=== PATIENT | male | born 1965 | race Caucasian/White ===

== ENCOUNTER → 2017-10-22 09:13 | Outpatient (CLI) | payer OTHER, SELFPAY ==
[2017-10-22 12:23] LABS: Absolute Lymphocyte Count 1.99 X10^3/ul (0.83-4.51); Basophil# 0.03 X10^3/uL; Basophil% 0.4 % (0-1); Eosinophil# 0.19 X10^3/uL; Eosinophils% 2.8 % (0-5); Hematocrit 45.4 % (40-54); Hemoglobin 15.8 g/dl (13.0-16.5); Lymphocyte # 1.99 X10^3/ul (4.0); Lymphocyte % 29.1 % (19-41); Mean Corp Hgb Conc 34.8 g/gl (32-36); Mean Corpuscular Hgb 31.6 pg (27.0-32.0); Mean Corpuscular Volume 90.8 fL (80-94); Mean Platelet Vol. 9.3 fl (6.2-12.0); Monocyte# 0.61 X10^3/uL; Monocyte% 8.9 % (0-10); Neutrophil % 58.7 % (47-70); Platelet Count 233 K/mm3 (150-450); RBC Distribution Width CV 13.1 % (11.6-14.6); White Blood Count 6.8 K/mm3 (4.4-11.0)
[2017-10-22 12:33] LABS: AST(SGOT) 17 U/L (15-37); Alanine Aminotransfer ALT/SGPT 35 U/L (16-61); Albumin, Serum 3.7 g/dL (3.2-5.0); Alkaline Phosphatase 89 U/L (45-117); Anion Gap 8 (5-15); BUN 21 mg/dL (7-18); BUN/Creat Ratio 23.2 RATIO (10-20); Calcium,Total 8.5 mg/dL (8.5-10.1); Chloride 103 mmol/L (98-107); Cholesterol 227 mg/dL (200); EST Glomerular Filtration Rate 93 mL/min (>60); Est Glom Filt Rate - Afr Amer 112 mL/min (>60); Globulin 3.6 g/dL (2.2-4.2); Glucose 102 mg/dL (74-106); High Density Lipoprotein 34 mg/dL; PSA,Total - Annual Screen 0.56 ng/mL (0.00-4.00); Potassium 4.1 mmol/L (3.5-5.1); Protein, Total 7.3 g/dL (6.4-8.2); Sodium Level 136 mmol/L (136-145); Triglycerides 255 mg/dL; Very Low Density Lipoprotein 51 mg/dL (5-40)
[2017-10-22 12:37] LABS: POSITIVE COUNT NO; POSITIVE DIFFERENTIAL NO; POSITIVE MORPHOLOGY NO
== END ==
PROVIDERS: Family Provider Internal Medicine; PCP Internal Medicine; Visit Provider Family Medicine
DX: Z00.01 Encounter for general adult medical examination with abnormal findings (principal); R03.0 Elevated blood-pressure reading, without diagnosis of hypertension; Z12.5 Encounter for screening for malignant neoplasm of prostate
CPT/HCPCS: 36415; 80053; 80061; 84153; 85025; G0103

== ENCOUNTER → 2017-10-22 10:23 | Outpatient (CLI) | payer OTHER, SELFPAY ==
--- NOTE | 2017-10-22 10:27 | US_ITS ---
STUDY: ABDOMINAL ULTRASOUND - RIGHT UPPER QUADRANT REASON FOR VISIT: Male, 52 years old. Right upper quadrant mass. TECHNIQUE: Ultrasound evaluation of the right upper quadrant was performed with real-time and static andrade-scale imaging. TECHNICAL QUALITY: Adequate. COMPARISON: Comparison is made with prior study dated October 28, 2015. FINDINGS: Liver: The liver measures 16.8 cm. There is increased echogenicity consistent with fatty infiltration. The bile ducts are within normal limits. There is hepatic color flow. The direction of portal flow is hepatopetal. There is no demonstrated mass lesion. Gallbladder: Normal distended gallbladder. The gallbladder wall measures 2.4 mm. There is a negative sonographic Madsen's sign. There is no pericholecystic fluid. There are no gallstones. Common Bile Duct (C.B.D.): The common bile duct measures 4.5 mm. Pancreas: There is nonvisualization of the pancreas due to overlying bowel gas. Right Kidney: Normal size of the right kidney. The right kidney measures 11.8 cm x 6.0 cm x 7.4 cm. Normal renal cortex. The right cortex measures 2.5 cm. There is no demonstrated renal mass or cyst. There is no right hydronephrosis. US/Abdomen Limited IMPRESSION: Fatty attrition of the liver. Electronically Signed: Torito Ross MD at 11:43 EST Tel [phone], Service support ,
== END ==
PROVIDERS: PCP Family Medicine; Visit Provider Family Medicine
DX: R19.01 Right upper quadrant abdominal swelling, mass and lump (principal)
CPT/HCPCS: 76705

== ENCOUNTER 2018-04-15 09:33 | Outpatient (RCR) | payer OTHER, SELFPAY | END 2018-04-26 23:59 | LOC: NS 09:33 | PROVIDERS: PCP Family Medicine; Visit Provider Family Medicine | DX: E66.01 Morbid (severe) obesity due to excess calories (principal); Z68.38 Body mass index [BMI] 38.0-38.9, adult; Z71.3 Dietary counseling and surveillance | CPT/HCPCS: 97802 ==

== ENCOUNTER 2018-05-13 08:50 | Outpatient (RCR) | payer OTHER, SELFPAY | END 2018-05-26 23:59 | LOC: NS 08:50 | PROVIDERS: PCP Family Medicine; Visit Provider Family Medicine | DX: E66.01 Morbid (severe) obesity due to excess calories (principal); Z68.38 Body mass index [BMI] 38.0-38.9, adult; Z71.3 Dietary counseling and surveillance | CPT/HCPCS: 97803 ==

== ENCOUNTER 2018-06-17 08:30 | Outpatient (RCR) | payer OTHER, SELFPAY | END 2018-06-26 23:59 | LOC: NS 08:30 | PROVIDERS: PCP Family Medicine; Visit Provider Family Medicine | DX: E66.01 Morbid (severe) obesity due to excess calories (principal); Z68.38 Body mass index [BMI] 38.0-38.9, adult; Z71.3 Dietary counseling and surveillance | CPT/HCPCS: 97803 ==

== ENCOUNTER 2018-07-08 09:01 | Outpatient (RCR) | payer OTHER, SELFPAY | END 2018-07-26 23:59 | LOC: NS 09:01 | PROVIDERS: PCP Family Medicine; Visit Provider Family Medicine | DX: E66.01 Morbid (severe) obesity due to excess calories (principal); Z68.38 Body mass index [BMI] 38.0-38.9, adult; Z71.3 Dietary counseling and surveillance | CPT/HCPCS: 97803 ==

== ENCOUNTER 2018-08-22 08:45 | Outpatient (RCR) | payer OTHER, SELFPAY | END 2018-08-26 23:59 | LOC: NS 08:45 | PROVIDERS: PCP Family Medicine; Visit Provider Family Medicine | DX: E66.01 Morbid (severe) obesity due to excess calories (principal); Z68.38 Body mass index [BMI] 38.0-38.9, adult; Z71.3 Dietary counseling and surveillance | CPT/HCPCS: 97803 ==

== ENCOUNTER 2018-09-24 08:30 | Outpatient (RCR) | payer OTHER, SELFPAY | END 2018-09-26 23:59 | LOC: NS 08:30 | PROVIDERS: PCP Family Medicine; Visit Provider Family Medicine | DX: E66.01 Morbid (severe) obesity due to excess calories (principal); Z68.38 Body mass index [BMI] 38.0-38.9, adult; Z71.3 Dietary counseling and surveillance | CPT/HCPCS: 97803 ==

== ENCOUNTER 2018-11-04 09:21 | Outpatient (RCR) | payer OTHER, SELFPAY | END 2018-11-04 23:59 | disposition home or self-care (01) | LOC: NS 09:21 | PROVIDERS: PCP Family Medicine; Visit Provider Family Medicine | DX: E66.01 Morbid (severe) obesity due to excess calories (principal); Z68.38 Body mass index [BMI] 38.0-38.9, adult; Z71.3 Dietary counseling and surveillance | CPT/HCPCS: 97803 ==

== ENCOUNTER → 2019-05-25 11:50 | Outpatient (CLI) | payer OTHER, SELFPAY ==
--- NOTE | 2019-05-25 12:06 | RAD_ITS ---
STUDY: X-RAY - LEFT FOOT CLINICAL: Male, 54 years old. Pain. Bunion TECHNIQUE: 3 view(s) of the foot. COMPARISON: None. FINDINGS: Normal talus, calcaneus, and tarsal bones. Normal visualized subtalar, talonavicular, calcaneocuboid, tarsal and tarsometatarsal articulations. Normal metatarsi. There is degenerative arthrosis of the metatarsophalangeal joint of the hallux with a hallux valgus deformity. Normal tibial and fibular sesamoid bones. Normal interphalangeal joint of the great toe. Normal phalanges of the great toe. Normal second through fifth metatarsophalangeal joints. Normal interphalangeal joints and phalanges of the lesser toes. The soft tissue structures are unremarkable. There is no demonstrated fracture. RAD/Foot min 3 Views IMPRESSION: Arthritic change with hallux valgus. Electronically Signed: Nestor Sams MD at 17:56 EDT , Service support ,
== END ==
PROVIDERS: Family Provider Family Medicine; PCP Family Medicine; Referring Provider Family Medicine; Visit Provider Family Medicine
DX: M79.672 Pain in left foot (principal); M21.612 Bunion of left foot
CPT/HCPCS: 73630

== ENCOUNTER → 2019-06-17 17:52 | Outpatient (CLI) | payer OTHER, SELFPAY ==
--- NOTE | 2019-06-17 18:15 | MRI_ITS ---
STUDY: MRI LEFT FOREFOOT WITHOUT CONTRAST REASON FOR EXAM: Male, 54 years old. Pain. Plantar plate tear TECHNIQUE: Standardized fat and water weighted pulse sequences were obtained in all 3 orthogonal planes. COMPARISON: X-ray May 25, 2019. FINDINGS: There is degenerative arthrosis of the metatarsophalangeal joint of the hallux with a hallux valgus deformity. Arthrosis of the sesamoids-first metatarsal articulations. Normal interphalangeal joint of the hallux. Normal proximal and distal phalanges of the great toe. Normal medial and lateral heads of the flexor hallucis brevis tendons. Normal flexor and extensor hallucis longus tendons. There is dorsal subluxation at the second MTP joint with plantar plate tear, series 8 image . There are hammertoe deformities of the second and third toes. There is marrow edema of the base and shaft of the second proximal phalanx . Normal first through fourth intermetatarsal spaces. Normal flexor and extensor tendons of the second through fifth toes. Normal visualized metatarsi. Normal intrinsic muscles of the forefoot. There is no demonstrated soft tissue abnormality. MRI/Lower Ext/No Jt/w/o IMPRESSION: Hallux valgus. Hammertoe deformities of the second and third toes. Stress injury of the second proximal phalanx. Plantar plate tear at the second MTP joint. Electronically Signed: Nestor Sams MD at 19:48 EDT , Service support ,
== END ==
PROVIDERS: Family Provider Family Medicine; PCP Family Medicine; Referring Provider Podiatrist Foot & Ankle Surgery; Visit Provider Podiatrist Foot & Ankle Surgery
DX: M20.12 Hallux valgus (acquired), left foot (principal); M25.872 Other specified joint disorders, left ankle and foot
CPT/HCPCS: 73718

== ENCOUNTER → 2019-07-04 09:26 | Outpatient (CLI) | payer OTHER, SELFPAY ==
[2019-07-04 12:41] LABS: Vitamin D,25 Hydroxy 28.1 ng/mL (29.95-100.01)
== END ==
PROVIDERS: Family Provider Family Medicine; PCP Family Medicine; Referring Provider Podiatrist Foot & Ankle Surgery; Visit Provider Podiatrist Foot & Ankle Surgery
DX: M25.872 Other specified joint disorders, left ankle and foot (principal); M20.12 Hallux valgus (acquired), left foot
CPT/HCPCS: 36415; 82306

== ENCOUNTER → 2019-07-29 08:33 | Outpatient (CLI) | payer OTHER, SELFPAY ==
[2019-07-29 14:56] LABS: Vitamin D,25 Hydroxy 63.1 ng/mL (29.95-100.01)
== END ==
PROVIDERS: Family Provider Family Medicine; PCP Family Medicine; Referring Provider Podiatrist Foot & Ankle Surgery; Visit Provider Podiatrist Foot & Ankle Surgery
DX: M20.12 Hallux valgus (acquired), left foot (principal); M25.872 Other specified joint disorders, left ankle and foot
CPT/HCPCS: 36415; 82306

== ENCOUNTER → 2019-07-31 08:43 | Outpatient (CLI) | payer OTHER, SELFPAY ==
[2019-07-31 10:23] LABS: Absolute Lymphocyte Count 1.87 X10^3/uL (0.83-4.51); Absolute Neutrophil Count 3.5 X10^3/uL (2.0-7.7); Basophil# 0.04 X10^3/uL; Basophil% 0.6 % (0-1); Eosinophils% 4.8 % (0-5); Hematocrit 44.8 % (40-54); Hemoglobin 15.2 g/dL (13.0-16.5); Lymphocyte # 1.87 X10^3/ul (4.0); Lymphocyte % 29.6 % (19-41); Mean Corp Hgb Conc 33.9 g/dL (32-36); Mean Corpuscular Hgb 31.1 pg (27.0-32.0); Mean Corpuscular Volume 91.6 fL (80-94); Monocyte# 0.54 X10^3/uL; Monocyte% 8.6 % (0-10); NRBC Flagged by Analyzer 0 % (0-5); Neutrophil # 3.54 X10^3/uL (2.7-7.7); Neutrophil % 56.1 % (47-70); Platelet Count 258 K/mm3 (150-450); RBC Distribution Width CV 12.8 % (11.6-14.6); RBC Distribution Width SD 42.8 fl (35.1-43.9); Red Blood Count 4.89 M/mm3 (4.6-6.2); White Blood Count 6.3 K/mm3 (4.4-11.0)
[2019-07-31 11:03] LABS: ALB/GLOB Ratio 1.1 RATIO (0.9-2.4); AST(SGOT) 18 U/L (15-37); Alanine Aminotransfer ALT/SGPT 38 U/L (16-61); Albumin, Serum 3.8 g/dL (3.2-5.0); Alkaline Phosphatase 85 U/L (45-117); Anion Gap 7 (5-15); BUN 23 mg/dL (7-18); BUN/Creat Ratio 22.8 RATIO (10-20); Calcium,Total 8.9 mg/dL (8.5-10.1); Chloride 109 mmol/L (98-107); Cholesterol 215 mg/dL (200); Creatinine, Serum 1.01 mg/dL (0.70-1.30); EST Glomerular Filtration Rate 81 mL/min (>60); Est Glom Filt Rate - Afr Amer 98 mL/min (>60); Globulin 3.5 g/dL (2.2-4.2); Glucose 105 mg/dL (74-106); High Density Lipoprotein 39 mg/dL; Potassium 3.9 mmol/L (3.5-5.1); Protein, Total 7.3 g/dL (6.4-8.2); Sodium Level 140 mmol/L (136-145); Triglycerides 145 mg/dL; Very Low Density Lipoprotein 29 mg/dL (5-40)
== END ==
PROVIDERS: Family Provider Family Medicine; PCP Family Medicine; Referring Provider Family Medicine; Visit Provider Family Medicine
DX: Z00.01 Encounter for general adult medical examination with abnormal findings (principal); R03.0 Elevated blood-pressure reading, without diagnosis of hypertension; Z12.5 Encounter for screening for malignant neoplasm of prostate
CPT/HCPCS: 36415; 80053; 80061; 84153; 85025; G0103

== ENCOUNTER → 2019-09-12 11:06 | Outpatient (CLI) | payer OTHER, SELFPAY ==
--- NOTE | 2019-09-12 11:10 | RAD_ITS ---
STUDY: X-RAY - LEFT FOOT CLINICAL: Male, 54 years old. post op left foot, 3 weeks TECHNIQUE: 3 view(s) of the foot. COMPARISON: Prior study of 05/25/2019 FINDINGS: Normal talus, calcaneus, and tarsal bones. Normal visualized subtalar, talonavicular, calcaneocuboid, tarsal and tarsometatarsal articulations. Status post bunionectomy changes of the first metatarsal head are noted. There is a dorsal fusion plate with multiple screws traversing the first metatarsophalangeal articulation. There are mild degenerative changes of the first metatarsophalangeal joint. Normal second through fifth metatarsophalangeal joints. A pain is demonstrated in the second digital ray projecting into the head of the second metatarsal. The soft tissue structures are unremarkable. RAD/Foot min 3 Views IMPRESSION: Fusion with plate and multiple screws of the first metatarsophalangeal joint. Status post first metatarsal head bunionectomy. Mild degenerative changes of the first metatarsophalangeal joint. A pin is demonstrated in the second digital ray extending from the distal phalanx to the second metatarsal head. A screw is demonstrated in the second metatarsal head. Osseous structures appear in good alignment. Electronically Signed: Dwayne Cox MD at 21:07 EST , Service support ,
== END ==
PROVIDERS: PCP Family Medicine; Referring Provider Podiatrist Foot & Ankle Surgery; Visit Provider Podiatrist Foot & Ankle Surgery
DX: Z98.890 Other specified postprocedural states (principal); M19.072 Primary osteoarthritis, left ankle and foot
CPT/HCPCS: 73630

== ENCOUNTER → 2019-09-24 14:15 | Outpatient (CLI) | payer OTHER, SELFPAY ==
--- NOTE | 2019-09-24 14:28 | RAD_ITS ---
STUDY: X-RAY - LEFT FOOT CLINICAL: Male, 54 years old. 4 WEEK POST OP F/U TECHNIQUE: 3 view(s) of the foot. COMPARISON: Prior study of 09/12/2019 FINDINGS: Normal talus, calcaneus, and tarsal bones. Normal visualized subtalar, talonavicular, calcaneocuboid, tarsal and tarsometatarsal articulations. There are status post bunionectomy changes of the first metatarsal head. There is fusion with plate and multiple screws of the first metatarsophalangeal joint. Normal tibial and fibular sesamoid bones. Normal interphalangeal joint of the great toe. A screw is demonstrated within the second metatarsal head. There is a pin in the second digital ray with tip projecting in the second metatarsal head. Normal interphalangeal joints and phalanges of the lesser toes. The soft tissue structures are unremarkable. RAD/Foot min 3 Views IMPRESSION: Fusion with plate and multiple screws of the first metatarsophalangeal joint. Status post first metatarsal head bunionectomy. A pin is demonstrated in the second digital ray. The osseous structures of the first and second toes appear in good alignment. Findings appear similar to the previous study. Electronically Signed: Dwayne Cox MD at 19:16 EST , Service support ,
== END ==
PROVIDERS: PCP Family Medicine; Referring Provider Podiatrist Foot & Ankle Surgery; Visit Provider Podiatrist Foot & Ankle Surgery
DX: M20.12 Hallux valgus (acquired), left foot (principal); Z98.890 Other specified postprocedural states
CPT/HCPCS: 73630

== ENCOUNTER → 2019-10-08 10:29 | Outpatient (CLI) | payer OTHER, SELFPAY ==
--- NOTE | 2019-10-08 10:32 | RAD_ITS ---
STUDY: X-RAY - LEFT FOOT CLINICAL: Male, 54 years old. 6 WEEK POST OP F/U TECHNIQUE: 3 weight bearing view(s) of the foot. COMPARISON: 09/1505/16/2020. 09/12/2019. FINDINGS: Interval removal of second metatarsal head second distal phalangeal pin. Stable arthrodesis plate and screws first metatarsophalangeal joint and small screw over the second metatarsal head. Soft tissue swelling along the forefoot. Possible previous bunionectomy. Normal talus, calcaneus, and tarsal bones. Normal visualized subtalar, talonavicular, calcaneocuboid, tarsal and tarsometatarsal articulations. Normal metatarsi. Loss of metatarsophalangeal joint space of the great toe. Degenerative changes along the first metatarsal head and tibial and fibular sesamoid bones. Normal interphalangeal joint of the great toe. Normal phalanges of the great toe. Normal second through fifth metatarsophalangeal joints. Normal interphalangeal joints and phalanges of the lesser toes. RAD/Foot min 3 Views IMPRESSION: Stable post surgical changes. No solid bone fusion seen at this time. There is soft tissue swelling. Electronically Signed: Rosaura Shaffer MD at 23:26 EST , Service support ,
== END ==
PROVIDERS: PCP Family Medicine; Referring Provider Podiatrist Foot & Ankle Surgery; Visit Provider Podiatrist Foot & Ankle Surgery
DX: M20.12 Hallux valgus (acquired), left foot (principal); Z98.890 Other specified postprocedural states
CPT/HCPCS: 73630

== ENCOUNTER → 2019-10-22 09:09 | Outpatient (CLI) | payer OTHER, SELFPAY ==
--- NOTE | 2019-10-22 09:16 | RAD_ITS ---
STUDY: X-RAY - LEFT FOOT CLINICAL: Male, 54 years old. post operative state, acquired hallux valgus of left foot TECHNIQUE: 3 view(s) of the foot. COMPARISON: Prior foot radiograph of October 08, 2019 FINDINGS: Normal talus, calcaneus, and tarsal bones. Normal visualized subtalar, talonavicular, calcaneocuboid, tarsal and tarsometatarsal articulations. 1 screw remains embedded in the head of the second metatarsal. There continues to be some general demineralization of the phalanges of the second toe and the head of the second metatarsal with no change in normal alignment. Healing osteotomy of the distal end of the middle phalanx of the second toe and base of the middle phalanx at the proximal interphalangeal joint consistent with hammertoe correction. All of the prior hardware has been completely removed. Stable hallux valgus correction and arthrodesis of the first metatarsophalangeal joint unchanged in alignment from prior exam. No disruption of the hardware. Normal third through fifth metatarsophalangeal joints. Normal interphalangeal joints of the remaining phalanges. Post operative swelling subsiding. RAD/Foot min 3 Views IMPRESSION: Healing hammertoe correction of the second toe in normal alignment. Some continuing disuse osteoporosis. Healing hallux valgus correction and arthrodesis of the first metatarsal phalangeal joint with no change in alignment or hardware placement. Electronically Signed: Jessica Pathak MD at 23:00 EST , Service support ,
== END ==
PROVIDERS: PCP Family Medicine; Referring Provider Podiatrist Foot & Ankle Surgery; Visit Provider Podiatrist Foot & Ankle Surgery
DX: M20.12 Hallux valgus (acquired), left foot (principal); Z98.890 Other specified postprocedural states
CPT/HCPCS: 73630

== ENCOUNTER → 2019-11-07 11:43 | Outpatient (CLI) | payer OTHER, SELFPAY ==
--- NOTE | 2019-11-07 11:48 | RAD_ITS ---
STUDY: X-RAY - LEFT FOOT CLINICAL: Male, 54 years old. Postoperative. TECHNIQUE: 3 view(s) of the foot. COMPARISON: 10/22/2019. FINDINGS: Diffuse osteopenia otherwise normal talus, calcaneus, and tarsal bones. Normal visualized subtalar, talonavicular, calcaneocuboid, tarsal and tarsometatarsal articulations. Fixation screw through the second metatarsal heads. Otherwise normal metatarsi. Extensive postoperative bunion repair with fixation plate and multiple screws at the first metatarsophalangeal joint with partial fusion. There is degenerative arthrosis of the interphalangeal joint of the great toe. Normal phalanges of the great toe. Normal second through fifth metatarsophalangeal joints. Questionable erosive change/arthritis at the proximal interphalangeal joint of the second toe. Interphalangeal joints and phalanges of the lesser toes. The soft tissue structures are unremarkable. There is no demonstrated fracture. RAD/Foot min 3 Views IMPRESSION: Postoperative changes of the first metatarsophalangeal joint for presumed bunion deformity with fixation screw through the second metatarsal head. Questionable inflammatory arthritis involving the proximal interphalangeal joint versus sequela of previous surgery. Clinical correlation recommended. Electronically Signed: Edith Cali MD at 1:01 EDT , Service support ,
== END ==
PROVIDERS: PCP Family Medicine; Referring Provider Podiatrist Foot & Ankle Surgery; Visit Provider Podiatrist Foot & Ankle Surgery
DX: Z98.890 Other specified postprocedural states (principal)
CPT/HCPCS: 73630

== ENCOUNTER → 2020-08-17 07:44 | Outpatient (CLI) | payer OTHER, SELFPAY ==
[2020-03-21 12:03] VITALS: BMI 37.5
[2020-08-17 09:47] LABS: Absolute Lymphocyte Count 1.95 X10^3/uL (0.83-4.51); Absolute Neutrophil Count 3.2 X10^3/uL (2.0-7.7); Basophil# 0.05 X10^3/uL; Basophil% 0.8 % (0-1); Eosinophil# 0.28 X10^3/uL; Eosinophils% 4.6 % (0-5); Hematocrit 44.6 % (40-54); Hemoglobin 15.2 g/dL (13.0-16.5); Lymphocyte # 1.95 X10^3/ul (4.0); Lymphocyte % 32.3 % (19-41); Mean Corp Hgb Conc 34.1 g/dL (32-36); Mean Corpuscular Hgb 31.1 pg (27.0-32.0); Mean Corpuscular Volume 91.4 fL (80-94); Mean Platelet Vol. 8.8 fl (6.2-12.0); Monocyte# 0.56 X10^3/uL; Monocyte% 9.3 % (0-10); NRBC Flagged by Analyzer 0 % (0-5); Neutrophil # 3.18 X10^3/uL (2.7-7.7); Neutrophil % 52.8 % (47-70); Platelet Count 251 K/mm3 (150-450); RBC Distribution Width CV 12.7 % (11.6-14.6); RBC Distribution Width SD 42.1 fl (35.1-43.9); Red Blood Count 4.88 M/mm3 (4.6-6.2)
[2020-08-17 10:02] LABS: Vitamin D,25 Hydroxy 31.8 ng/mL
[2020-08-17 10:12] LABS: ALB/GLOB Ratio 1.1 RATIO (0.9-2.4); AST(SGOT) 18 U/L (15-37); Alanine Aminotransfer ALT/SGPT 31 U/L (16-61); Albumin, Serum 3.7 g/dL (3.2-5.0); Alkaline Phosphatase 93 U/L (45-117); Anion Gap 7 (5-15); BUN 23 mg/dL (7-18); BUN/Creat Ratio 24.8 RATIO (10-20); Calcium,Total 8.7 mg/dL (8.5-10.1); Chloride 107 mmol/L (98-107); Cholesterol 205 mg/dL (200); Creatinine, Serum 0.93 mg/dL (0.70-1.30); EST Glomerular Filtration Rate 89 mL/min (>60); Est Glom Filt Rate - Afr Amer 108 mL/min (>60); Globulin 3.3 g/dL (2.2-4.2); Glucose 106 mg/dL (74-106); High Density Lipoprotein 38 mg/dL; PSA,Total - Annual Screen 0.68 ng/mL (0.00-4.00); Potassium 3.7 mmol/L (3.5-5.1); Sodium Level 139 mmol/L (136-145); Triglycerides 160 mg/dL; Very Low Density Lipoprotein 32 mg/dL (5-40)
== END ==
PROVIDERS: PCP Family Medicine; Referring Provider Family Medicine; Visit Provider Family Medicine
DX: Z00.00 Encounter for general adult medical examination without abnormal findings (principal); E55.9 Vitamin D deficiency, unspecified; Z12.5 Encounter for screening for malignant neoplasm of prostate
CPT/HCPCS: 36415; 80053; 80061; 82306; 84153; 85025; G0103

== ENCOUNTER 2020-10-22 08:02 | Day surgery (SDC) | payer OTHER, SELFPAY ==
[2020-03-21 12:03] VITALS: BMI 37.5
--- NOTE | 2020-10-22 | COLBX_PTH ---
PATIENT: GAVI BLACKWELL LOC: [facility] – [place] U#:[id number] AGE/SX: 55/M ROOM: RE10/22/[address]: Dr. Bronson Durand MD : 1965 BED: DIS: 10/22/2020 SPEC #: [id number] RECD: 10/22/20 12:37 STATUS: MACARENA REChristos #: [id number] MARYELLEN: 10/22/20 00:[address]: Bronson Durand DEPT: SURGICAL PATHOLOGY RECD BY: Hemant Leiva ENTERED: 10/22/20 12:37 SP TYPE: COLON BX OTHR DR: Dr. Ryan Garrido, Tissues: Descending colon Procedures: Surgery Specimen Level IV HEADER OPERATION: Colonoscopy - open access (MAC) PRE-OP DIAGNOSIS: History of colon polyps TISSUE SUBMITTED: Descending colon polyp hot snare MICROSCOPIC DIAGNOSIS Descending colon polyp, biopsy: Tubular adenoma. SJ:patrick 10/25/2020 MICROSCOPIC DESCRIPTION Slides are reviewed. GROSS DESCRIPTION Received in fixative is one container labeled with the patient's name and designated descending colon polyp cold snare. The specimen consists of a doston-pink polyp measuring 0.4 x 0.4 x 0.3 cm. The specimen is totally submitted in one cassette. / SJ:patrick 10/22/20 TC:1 CPT: 90970
[2020-10-22 08:18] VITALS: BP 158/98; PULSE 65; RESP 16; TEMP 36.7; O2SAT 97; BMI 36.1
[2020-10-22] MEDS: Lactated Ringers 1,000 ML 100 ML IV (08:36)
--- NOTE | 2020-10-22 09:28 | HP.PCM_ITS ---
Problem List (1) Personal history of colonic polyps Status: Acute History of Present Illness Date of Admission: 10/22/20 The patient is a 55 year old M who has a personal history of colon polyps. He thinks his previous colonoscopy was about 4 years ago. He had multiple polyps a t that time. He denies bright red blood per rectum or melena. No abdominal pain. He otherwise enjoys good health. He is avoided COVID-19. Past Medical History Allergies No Known Allergies Allergy (Verified 10/22/20 08:16) Home Medications: Ambulatory Orders Medication Instructions Recorded Aspirin [Aspirin, Baby] 81 mg PO DAILY@0800 10/15/20 Surgical History: Surgical History (Last Updated 03/21/20 @ 12:04 by Joon Hannah) History of foot surgery Z98.890 Smoking Status: Never smoker Tobacco Use: Non-smoker Review of Systems Constitutional: Denies: Chills, Fever Cardiovascular: Denies: Chest Pain, Claudication Respiratory: Denies: Cough, Hemoptysis, Pleuritic Pain Gastrointestinal: Denies: Abdominal Pain, Hematochezia, Melena Endocrine: Denies: Change in Body Habitus VTE Information - Inpt Only VTE Present on Admission: No - Physical Exam Vitals/I&O's: Vital Signs Temp Pulse Resp BP Pulse Ox 98.0 F 65 16 158/98 H 97 10/22/20 08:18 10/22/20 08:18 10/22/20 08:18 10/22/20 08:18 10/22/20 08:18 Oxygen Delivery Method Room Air Weight: 266 lb 12.149 oz Body Mass Index (BMI) 36.1 General: Alert, Oriented x3, Cooperative, No apparent distress HEENT: Atraumatic Oral: Moist Mucosa Lungs: Clear to auscultation, Normal air movement Cardiovascular: Regular rate, Regular Rhythm Abdomen: Soft, Non Tender Extremities: No Calf Tenderness Psych/Mental Status: Normal Affect Microbiology Past 72 Hours 10/21/20 08:30 Interface Orders SARS-CoV-2 Antigen (Rapid) - Final Current Medications Lactated Ringer's () 1,000 mls @ 100 mls/hr IV .Q10H ARIADNA Last Admin: 10/22/20 08:36 Dose: 100 mls/hr Documented by: Assessment/Plan All Active Problems (Last Reviewed 03/21/20 @ 12:04 by Joon Hannah) Personal history of colonic polyps (Acute) Impacted cerumen of left ear (Acute) 55-year-old gentleman with a personal history of multiple colon polyps. I propose for him a colonoscopy with possible biopsy or polypectomy is indicated. He is aware of the technique, benefit, risk, alternatives. He presents via open access today. We will proceed as noted. Bronson Durand M.D., F.A.C.S.
--- NOTE | 2020-10-22 09:59 | OP.COLON_ITS ---
Patient Name: Roberto Montenegro Procedure Date: 10/22/2020 9:19 AM Date of : 1965 Age: 55 Procedure: Colonoscopy Indications: High risk colon cancer surveillance: Personal history of colonic polyps Providers: Bronson Durand MD Referring MD: Ryan Garrido Medicines: See the Anesthesia note for documentation of the administered medications Patient Profile: Last Colonoscopy: more than 3 years ago. Complications: No immediate complications. Procedure: Pre-Anesthesia Assessment: - Prior to the procedure, a History and Physical was performed, and patient medications and allergies were reviewed. The patient's tolerance of previous anesthesia was also reviewed. The risks and benefits of the procedure and the sedation options and risks were discussed with the patient. All questions were answered, and informed consent was obtained. Prior Anticoagulants: The patient has taken no previous anticoagulant or antiplatelet agents. ASA Grade Assessment: II - A patient with mild systemic disease. After reviewing the risks and benefits, the patient was deemed in satisfactory condition to undergo the procedure. After I obtained informed consent, the scope was passed under direct vision. Throughout the procedure, the patient's blood pressure, pulse, and oxygen saturations were monitored continuously. The adult colonoscope was introduced through the anus and advanced to the cecum, identified by appendiceal orifice and ileocecal valve. The colonoscopy was somewhat difficult due to a tortuous colon. The patient tolerated the procedure well. The quality of the bowel preparation was adequate to identify polyps. The ileocecal valve and the appendiceal orifice were photographed. Scope In: 9:34:52 AM Scope Withdrawal Time 0 hours 13 minutes 46 seconds Scope Out: 9:53:58 AM Total Procedure Duration Time 0 hours 19 minutes 6 seconds Findings: Hemorrhoids were found on perianal exam. The digital rectal exam was normal. Pertinent negatives include normal prostate (size, shape, and consistency). A 7 mm polyp was found in the mid descending colon. The polyp was semi-pedunculated. The polyp was removed with a hot snare. Resection and retrieval were complete. A few diverticula were found in the sigmoid colon. The exam was otherwise without abnormality. Impression: - Hemorrhoids found on perianal exam. - One 7 mm polyp in the mid descending colon, removed with a hot snare. Resected and retrieved. - Diverticulosis in the sigmoid colon. - The examination was otherwise normal. Recommendation: - Discharge patient to home. - Resume previous diet. - Continue present medications. - Repeat colonoscopy in 5 years for surveillance. - Telephone my office for pathology results in 1 week. Procedure Code(s): --- Professional --- 72972, Colonoscopy, flexible; with removal of tumor(s), polyp(s), or other lesion(s) by snare technique Diagnosis Code(s): --- Professional --- Z86.010, Personal history of colonic polyps K64.9, Unspecified hemorrhoids D12.4, Benign neoplasm of descending colon K57.30, Diverticulosis of large intestine without perforation or abscess without bleeding CPT copyright 2017 [employer] [employer]. All rights reserved. The codes documented in this report are preliminary and upon elevator attendant review may be revised to meet current compliance requirements. Bronson Durand MD 10/22/2020 9:59:33 AM This report has been signed electronically. Number of Addenda: 0 Note Initiated On: 10/22/2020 9:19 AM
--- NOTE | 2020-10-22 09:59 | OP.CCLET_ITS ---
10/22/2020 Ryan Garrido [address] [place] [address] Re : Colonoscopy procedure for Roberto Montenegro Dear Dr. Garrido This procedure was performed on Thursday, October 22, 2020. My impressions and recommendations are as follows: Impressions : - Hemorrhoids found on perianal exam. - One 7 mm polyp in the mid descending colon, removed with a hot snare. Resected and retrieved. - Diverticulosis in the sigmoid colon. - The examination was otherwise normal. Recommendations : - Discharge patient to home. - Resume previous diet. - Continue present medications. - Repeat colonoscopy in 5 years for surveillance. - Telephone my office for pathology results in 1 week. My findings are described in the full procedure note, which is enclosed. If I can be of further assistance, please feel free to contact me at Doctor phone number(s): Work: . Sincerely, Bronson Durand MD 10/22/2020 9:59:33 AM This report has been signed electronically.
[2020-10-22 10:00] VITALS: BP 111/88; BP 137/85; PULSE 87; PULSE 94; RESP 16; RESP 18; TEMP 36.3; O2SAT 94; O2SAT 97
[2020-10-22 10:05] VITALS: BP 122/82; BP 137/85; PULSE 92; RESP 16; O2SAT 96
[2020-10-22 10:10] VITALS: BP 130/95; BP 137/85; PULSE 78; RESP 16; TEMP 36.3; O2SAT 95
[2020-10-22 10:40] VITALS: BP 137/85
== END 2020-10-22 10:43 | disposition home or self-care (01) ==
LOC: SDC 08:03 → AC 08:03
PROVIDERS: PCP Family Medicine; Referring Provider Family Medicine; Visit Provider Surgery
PROC: 0DJD8ZZ Inspection of Lower Intestinal Tract, Via Natural or Artificial Opening Endoscopic (ICD-10-PCS; CPT 45378; principal; 2020-10-22 08:55)
DX: Z12.11 Encounter for screening for malignant neoplasm of colon (principal); D12.4 Benign neoplasm of descending colon; K57.30 Diverticulosis of large intestine without perforation or abscess without bleeding; K64.9 Unspecified hemorrhoids; Z20.822 Contact with and (suspected) exposure to COVID-19; Z79.82 Long term (current) use of aspirin; Z86.010 Personal history of colon polyps
CPT/HCPCS: 45385; 87426; 88305; C9803; J7120; J2405

== ENCOUNTER → 2021-08-17 08:50 | Outpatient (CLI) | payer OTHER, SELFPAY ==
[2021-08-17 10:14] LABS: Absolute Lymphocyte Count 1.79 X10^3/uL (0.83-4.51); Absolute Neutrophil Count 4.4 X10^3/uL (2.0-7.7); Basophil# 0.06 X10^3/uL; Basophil% 0.9 % (0-1); Eosinophil# 0.16 X10^3/uL; Eosinophils% 2.3 % (0-5); Hematocrit 45.1 % (40-54); Lymphocyte # 1.79 X10^3/ul (0.83-4.51); Lymphocyte % 25.6 % (19-41); Mean Corp Hgb Conc 33.3 g/dL (32-36); Mean Corpuscular Hgb 30.9 pg (27.0-32.0); Monocyte# 0.53 X10^3/uL; Monocyte% 7.6 % (0-10); NRBC Flagged by Analyzer 0 % (0-5); Neutrophil # 4.42 X10^3/uL (2.7-7.7); Neutrophil % 63.2 % (47-70); Platelet Count 294 K/mm3 (150-450); RBC Distribution Width CV 12.8 % (11.6-14.6); RBC Distribution Width SD 43.9 fl (35.1-43.9); Red Blood Count 4.85 M/mm3 (4.6-6.2)
[2021-08-17 10:15] LABS: Color, Urine Yellow (Yellow); Glucose, Dipstick Normal (Normal); Ketone-Dipstick Negative (Negative); Leukocyte Esterase-Dipstick Negative /ul (Negative); Nitrite-Dipstick Negative (Negative); Occult Blood-Urine Negative /ul (Negative); Protein-Dipstick Negative (Negative); Specific Gravity, Urine 1.015 (1.002-1.030); Urine Bilirubin Dipstick Negative (Negative); Urine Clarity Clear (Clear); Urine Urobilinogen Normal (Normal)
[2021-08-17 10:37] LABS: AST(SGOT) 17 U/L (15-37); Alanine Aminotransfer ALT/SGPT 38 U/L (16-61); Albumin, Serum 3.6 g/dL (3.2-5.0); Alkaline Phosphatase 90 U/L (45-117); Anion Gap 6 (5-15); BUN 22 mg/dL (7-18); BUN/Creat Ratio 24.3 RATIO (10-20); Calcium,Total 8.9 mg/dL (8.5-10.1); Chloride 108 mmol/L (98-107); Cholesterol 173 mg/dL (200); EST Glomerular Filtration Rate 91 mL/min (>60); Est Glom Filt Rate - Afr Amer 111 mL/min (>60); Globulin 3.7 g/dL (2.2-4.2); Glucose 99 mg/dL (74-106); High Density Lipoprotein 38 mg/dL; PSA,Total - Annual Screen 0.69 ng/mL (0.00-4.00); Potassium 4.1 mmol/L (3.5-5.1); Protein, Total 7.3 g/dL (6.4-8.2); Sodium Level 141 mmol/L (136-145); Thyroid Stim Hormone (TSH) 1.95 uIU/mL (0.358-3.74); Triglycerides 156 mg/dL; Very Low Density Lipoprotein 31 mg/dL (5-40)
== END ==
PROVIDERS: PCP Family Medicine; Referring Provider Family Medicine; Visit Provider Family Medicine
DX: Z00.00 Encounter for general adult medical examination without abnormal findings (principal); Z12.5 Encounter for screening for malignant neoplasm of prostate
CPT/HCPCS: 36415; 80053; 80061; 81002; 82306; 84153; 84443; 85025; G0103

== ENCOUNTER 2021-09-19 07:53 | Outpatient (CLI) | payer OTHER, SELFPAY ==
--- NOTE | 2021-09-19 07:59 | CDU_ITS ---
Reason For Study: Occlusion and stenosis of bilateral carotid arteries Rt. Velocities/BP Lt. Velocities/BP Prox CCA 96.9/16 cm/sec. Prox CCA 128/27 cm/sec. Mid CCA 90.4/13.4 cm/sec. Mid CCA 130.1/22.6 cm/sec. Dist CCA 93/21.3 cm/sec. Dist CCA 119.2/27 cm/sec. Prox ICA 65.6/21.3 cm/sec. Prox ICA 54.2/14.6 cm/sec. Mid ICA 89.1/30.4 cm/sec. Mid ICA 93.7/38.4 cm/sec. Dist ICA 100.8/38.2 cm/sec. Dist ICA 103.5/43.3 cm/sec. Rt. ICA/CCA = 1.1. Lt. ICA/CCA = 0.8. Prox ECA 96.9/10.8 cm/sec. Prox ECA 106/13.8 cm/sec. Rt. Vert. 61.7/20 cm/sec. Lt. Vert. 40.9/11.6 cm/sec. Right Extracranial There is homogeneous, smooth atherosclerotic plaque noted in the right common carotid artery. There is intimal thickening but no significant atherosclerotic plaque noted in the right internal carotid artery. There is intimal thickening but no significant atherosclerotic plaque noted in the right external carotid artery. Antegrade flow is noted in the right vertebral artery. Left Extracranial There is homogeneous, smooth atherosclerotic plaque noted in the left common carotid artery. There is heterogeneous, smooth atherosclerotic plaque noted in the left internal carotid artery. There is intimal thickening but no significant atherosclerotic plaque noted in the left external carotid artery. Antegrade flow is noted in the left vertebral artery. Procedure Carotid Duplex 81454. This is a Carotid Duplex examination using B-mode, color flow and specral Doppler. Exam performed in department. VL/Carotid Duplex Ultrasound Interpretation Summary Intimal thickening of the proximal right internal carotid artery with less than 50% stenosis Less than 50% stenosis right external carotid artery Minimal smooth plaque at the proximal left internal carotid artery with less th an 50% stenosis Less than 50% stenosis left external carotid artery Patent antegrade vertebral arteries bilaterally Ordering Physician: Ryan Garrido Referring Physician: Ryan Garrido Performed By: Alpa Mccracken RVT
== END 2021-09-19 23:59 | disposition short-term general hospital (02) ==
PROVIDERS: PCP Family Medicine; Referring Provider Family Medicine; Visit Provider Family Medicine
DX: I65.23 Occlusion and stenosis of bilateral carotid arteries (principal)
CPT/HCPCS: 93880

== ENCOUNTER 2022-02-07 09:42 | Outpatient (RCR) | payer OTHER, SELFPAY | END 2022-02-23 23:59 | disposition home or self-care (01) | LOC: WC 09:42 | PROVIDERS: PCP Family Medicine; Visit Provider Surgery | DX: Z09 Encounter for follow-up examination after completed treatment for conditions other than malignant neoplasm (principal) ==

== ENCOUNTER → 2022-08-22 | Outpatient (CLI) | payer OTHER, SELFPAY ==
[2022-08-22 10:03] LABS: Absolute Lymphocyte Count 1.95 X10^3/uL (0.83-4.51); Absolute Neutrophil Count 4.7 X10^3/uL (2.0-7.7); Basophil# 0.04 X10^3/uL; Basophil% 0.5 % (0-1); Eosinophil# 0.23 X10^3/uL; Hematocrit 47.3 % (40-54); Hemoglobin 15.6 g/dL (13.0-16.5); Lymphocyte # 1.95 X10^3/ul (0.83-4.51); Lymphocyte % 25.8 % (19-41); Mean Corpuscular Hgb 30.5 pg (27.0-32.0); Mean Corpuscular Volume 92.6 fL (80-94); Monocyte# 0.62 X10^3/uL; Monocyte% 8.2 % (0-10); NRBC Flagged by Analyzer 0 % (0-5); Neutrophil # 4.69 X10^3/uL (2.7-7.7); Neutrophil % 62.1 % (47-70); Platelet Count 274 K/mm3 (150-450); RBC Distribution Width SD 44.1 fl (35.1-43.9); Red Blood Count 5.11 M/mm3 (4.6-6.2); White Blood Count 7.6 K/mm3 (4.4-11.0)
[2022-08-22 10:19] LABS: Hemoglobin A1c 5.3 % (3.8-5.6)
[2022-08-22 10:45] LABS: ALB/GLOB Ratio 1.2 RATIO (0.9-2.4); AST(SGOT) 11 U/L (15-37); Alanine Aminotransfer ALT/SGPT 30 U/L (16-61); Albumin, Serum 3.7 g/dL (3.2-5.0); Alkaline Phosphatase 85 U/L (45-117); Anion Gap 9 (5-15); BUN 23 mg/dL (7-18); BUN/Creat Ratio 23.3 RATIO (10-20); Calcium,Total 8.8 mg/dL (8.5-10.1); Chloride 106 mmol/L (98-107); Cholesterol 226 mg/dL (200); Creatinine, Serum 0.99 mg/dL (0.70-1.30); EST Glomerular Filtration Rate 83 mL/min (>60); Est Glom Filt Rate - Afr Amer 100 mL/min (>60); Globulin 3.2 g/dL (2.2-4.2); Glucose 106 mg/dL (74-106); High Density Lipoprotein 43 mg/dL; PSA,Total - Annual Screen 0.64 ng/mL (0.00-4.00); Potassium 4.1 mmol/L (3.5-5.1); Protein, Total 6.9 g/dL (6.4-8.2); Sodium Level 139 mmol/L (136-145); Triglycerides 162 mg/dL; Very Low Density Lipoprotein 32 mg/dL (5-40)
--- NOTE | 2022-08-22 14:46 | RAD_ITS ---
INDICATION: KNEE PAIN EXAMINATION/TECHNIQUE: X-RAY - RIGHT XR Knee Complete 4 Views or More 4 VIEWS COMPARISON: None. FINDINGS: SOFT TISSUES: No soft tissue swelling or gas. No radiopaque foreign body. BONES/JOINTS: No acute fracture. Severe tricompartmental degenerative changes. No sclerotic or destructive changes observed. RAD/Knee 4 or More Views IMPRESSION: Severe tricompartmental degenerative changes. Electronically Signed: Emir Brown MD at 22:44 EST ,
--- NOTE | 2022-08-22 14:55 | RAD_ITS ---
INDICATION: KNEE PAIN EXAMINATION/TECHNIQUE: X-RAY - LEFT XR Knee Complete 4 Views or More 4 VIEWS COMPARISON: None. FINDINGS: SOFT TISSUES: No soft tissue swelling or gas. No radiopaque foreign body. BONES/JOINTS: No acute fracture. Severe tricompartmental degenerative changes. No sclerotic or destructive changes observed. RAD/Knee 4 or More Views IMPRESSION: Severe tricompartmental degenerative changes. Electronically Signed: Emir Brown MD at 22:41 EST ,
== END | disposition home or self-care (01) ==
PROVIDERS: PCP Family Medicine; Referring Provider Family Medicine; Visit Provider Family Medicine
DX: Z00.00 Encounter for general adult medical examination without abnormal findings (principal); Z12.5 Encounter for screening for malignant neoplasm of prostate; M25.561 Pain in right knee; M25.562 Pain in left knee
CPT/HCPCS: 36415; 73564; 80053; 80061; 83036; 84153; 85025; G0103

== ENCOUNTER → 2022-10-20 | Outpatient (CLI) | payer OTHER, SELFPAY | END | disposition home or self-care (01) | LOC: SL 14:14 | PROVIDERS: PCP Family Medicine; Visit Provider Family Medicine | DX: G47.33 Obstructive sleep apnea (adult) (pediatric) (principal) | CPT/HCPCS: 98960; G0463 ==

== ENCOUNTER 2022-10-31 07:00 | Outpatient (RCR) | payer OTHER, SELFPAY ==
--- NOTE | 2022-09-19 07:40 | HP.PTEVAL_ITS ---
Patient's Visit Information GAVI BLACKWELL is a 57 year old M referred to Physical Therapy by Dr. Brandyn Tijerina DO with a diagnosis of B knee OA. Date of Evaluation: 09/14/22 Physical Therapist: Ruddy Noble DPT - Visit Plan Frequency: 2x /Week Duration: 4 Weeks Plan: Start with knee flexion/extension mobiliazation. Quad and HS stretching. Add in hip extension mobilizations to allow for better standing posture. Add in gym exercises as patient wants to progress to gym program independently. - Subjective Pt. is here today for his initial evaluation with diagnosis of B knee OA and stiffness. Pt. reports having increasing knee pain for the last few years, but the last year has been significantly worse. Pt. 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 Pt. has marked stiffness in B knees and marked varus positioning. Pt. reports increased pain with prolonged walking, stairs and squatting. The injections have been helpful as well. Pt. is hopeful to increase his ROM, but also wanted to get back to some gym exercises as well with decreased B knee pain. He did report that he will most likely have to have surgery for both of his knees with would like to restore as much motion as he can prior. - Pain R knee Pain Intensity (Out of 10): 1 L knee Pain Intensity (Out of 10): 1 R Hamstring Pain Intensity (Out of 10): 5 - Objective POSTURE: Pt. has slight fwrd flexed posture. Pt. has marked B knee varus positioning in stance. Worse bilaterally in SLS. PT. also severely lacks TKE in stance bilaterally. PALPATION: Pt. has minimal tenderness in BLEs, no marked edema in either LE. ROM: RLE: knee: 0-15-119deg. LLE: Knee: 0-20-106deg. Pt. has marked loss of ROM in both knees. He has tightness noted in B HS as well. Pt. has marked loss of hip extension bilaterally as well. MMT: Pt. had 5/5 strength throughout BLE distal LEs ankle and knees. Pt. has 5-/5 B hip and hip extension. GAIT: pt. has a general flexed posture with gait. Crouched due to limited B hip extension and B knee extension. - Goals Goal 1:: LTG: Pt. to be I with HEP. Goal Time Frame: 4-6 Weeks Goal 2:: LTG: pt. to have increased B knee ROM to 0-0-120deg actively. Goal Time Frame: 4-6 Weeks Goal 3:: STG: Pt. to be consistent with stretching program at home. Goal Time Frame: 2 Weeks Goal 4:: LTG: Pt. to have improved gait pattern reducing crouched posture and improved stride length. Goal Time Frame: 4-6 Weeks Goal 5:: LTG: Pt. to have 5/5 B LE strength. Goal Time Frame: 4-6 Weeks - Rehabilitation Potential Physical Therapy Diagnosis: Pt. has signs and symptoms consistent with B knee OA with marked loss of knee ROM. Pt. would benefit from PT to work on increasing B knee ROM, most notably into extension. Hip and knee mobilization would be beneficial for this as well. Pt. would benefit from PT to address the above limitations. Rehabilitation Potential: Good - Anticipated Interventions Patient/Client Instruction: Educate patient on: Condition, Plan of Care, Risk Factors, Benefits of Fitness Program For the Purpose of:: To improve decision making, To facilitate caregiver knowledge, To improve self management, To prevent re-injury, To improve ability to perform tasks related to life management Therapeutic Exercise to Include: Strength training, Balance training, Coordination, Flexibilty training, Gait and locomotor training, Passive ROM, Active ROM For the Purpose of:: To decrease pain, To increase ROM, To improve nutrient delivery to tissue, To decrease level of supervision to perform tasks, To improve ability of physical actions for home/community/work/leisure, To improve gait and locomotor functions, To improve health of tissue, To increase flexibility/ROM, To improve endurance, To improve balance Thank you for the opportunity to evaluate your patient. For Medicare and Medicare HMO plans, please review the plan of care and approve it. It will need to be FAXED BACK to us at [phone] for Medicare purposes. For Medicare only, by signing this I certify the plan of care. Please let me know if there are questions or concerns regarding this plan of ca re. Physician Signature: Date:
--- NOTE | 2022-10-12 07:55 | HP.PTREVAL ---
Dr. Brandyn Tijerina, DO, It has been my pleasure to treat GAVI BLACKWELL over the last 9 visits for B knee OA. Please see the progress note below for an update on the physical therapy plan of care! Subjective: Pt. reports overall doing well. Pt. pleased. Pt. did have some increased HS pain, possible radicular symptoms. The pain did alternate from side to side (initially in R then in L). This is now gone. Pt. did get a streroid which did help some of his symptoms. Objective/Function: ROM: R 0-10-121deg, L knee: 0-11-96deg. HS length -10degin 90/90 position. MMT: R Knee: ext 58#, flexion 47#. LLE: knee: ext 56#, flexion 25#. TU.2sec. stairs: pt. did well with reciprocal pattern, basically ran up them. His gait pattern has improved. He still has an overall crouched posture, but I am not sure this will be fully rectified. Pt. is improving in this area as well. He still has limited B knee ROM, most notably into extension, L worse than R. He has overall good strength. We have focused on stretching throughout his legs and lumbar spine, but did sprinkle in some light active strengthening, not much. Plan Plan: Pt. to follow up with physician today. Balance/Gait/Functional tests - Balance/Special Test Scores Lower Extremity Functional Score: 53 Goals Goal 1:: LTG: Pt. to be I with HEP. Goal Time Frame: 4-6 Weeks Goal Progress: Progressing Goal 2:: LTG: pt. to have increased B knee ROM to 0-0-120deg actively. Goal Time Frame: 4-6 Weeks Goal Progress: Progressing Goal 3:: STG: Pt. to be consistent with stretching program at home. Goal Time Frame: 2 Weeks Goal Progress: Progressing Goal 4:: LTG: Pt. to have improved gait pattern reducing crouched posture and improved stride length. Goal Time Frame: 4-6 Weeks Goal Progress: Progressing Goal 5:: LTG: Pt. to have 5/5 B LE strength. Goal Time Frame: 4-6 Weeks Goal Progress: Progressing Anticipated Interventions Patient/Client Instruction: Educate patient on: Condition, Plan of Care, Risk Factors, Benefits of Fitness Program For the Purpose of:: To improve decision making, To facilitate caregiver knowledge, To improve self management, To prevent re-injury, To improve ability to perform tasks related to life management Therapeutic Exercise to Include: Strength training, Balance training, Coordination, Flexibilty training, Gait and locomotor training, Passive ROM, Active ROM For the Purpose of:: To decrease pain, To increase ROM, To improve nutrient delivery to tissue, To decrease level of supervision to perform tasks, To improve ability of physical actions for home/community/work/leisure, To improve gait and locomotor functions, To improve health of tissue, To increase flexibility/ROM, To improve endurance, To improve balance Please do not hesitate to contact me at [phone] by phone or if you have questions or concerns regarding this new plan of care! Sincerely, FRANCISCO GanoaT
== END 2022-10-31 19:00 | disposition home or self-care (01) ==
LOC: PT 07:00
PROVIDERS: PCP Family Medicine; Referring Provider Orthopaedic Surgery; Visit Provider Orthopaedic Surgery
DX: M17.0 Bilateral primary osteoarthritis of knee (principal); M25.661 Stiffness of right knee, not elsewhere classified; M25.662 Stiffness of left knee, not elsewhere classified
CPT/HCPCS: 97110; 97161; 97164; 97530

== ENCOUNTER → 2022-11-02 | Outpatient (CLI) | payer OTHER, SELFPAY ==
--- NOTE | 2022-11-02 16:37 | RAD_ITS ---
STUDY: X-RAY - RIGHT FOOT CLINICAL: Male, 57 years old. Injury today. Bruising and swelling to the fourth and fifth metacarpal region. TECHNIQUE: 3 view(s) of the foot. COMPARISON: None. FINDINGS: Normal talus, calcaneus, and tarsal bones. Normal visualized subtalar, talonavicular, calcaneocuboid, tarsal and tarsometatarsal articulations. Normal metatarsi. Normal metatarsophalangeal joint of the great toe. There is a bipartite tibial sesamoid. Normal interphalangeal joint of the great toe. Normal phalanges of the great toe. Normal second through fifth metatarsophalangeal joints. Mildly displaced fracture of the proximal shaft of the fourth proximal phalanx with slight dorsal angulation. Otherwise normal interphalangeal joints and phalanges of the lesser toes. Soft tissue swelling over the dorsum of the forefoot. RAD/Foot min 3 Views IMPRESSION: Fracture of the fourth proximal phalanx. Electronically Signed: Cipriano Dumont DO at 16:59 EST ,
== END | disposition home or self-care (01) ==
PROVIDERS: PCP Family Medicine; Referring Provider Student in an Organized Health Care Education/Training Program; Visit Provider Student in an Organized Health Care Education/Training Program
DX: M79.671 Pain in right foot (principal)
CPT/HCPCS: 73630

== ENCOUNTER → 2022-11-16 | Outpatient (CLI) | payer OTHER, SELFPAY ==
--- NOTE | 2022-11-16 09:53 | RAD_ITS ---
INDICATION: TOE PAIN EXAMINATION/TECHNIQUE: X-RAY - RIGHT XR Foot Min 3 Views 3 VIEWS COMPARISON: 11/02/2022 RAD/Foot min 3 Views IMPRESSION: Similar right fourth proximal phalangeal base fracture with superior subluxation of the distal fragment. No periosteal reaction or callus formation. Decreased soft tissue swelling. Electronically Signed: Raj Le MD at 17:31 EDT ,
== END | disposition home or self-care (01) ==
PROVIDERS: PCP Family Medicine; Referring Provider Student in an Organized Health Care Education/Training Program; Visit Provider Student in an Organized Health Care Education/Training Program
DX: M79.671 Pain in right foot (principal)
CPT/HCPCS: 73630

== ENCOUNTER → 2022-11-29 | Outpatient (CLI) | payer OTHER, SELFPAY ==
--- NOTE | 2022-11-29 13:04 | RAD_ITS ---
STUDY: X-RAY - RIGHT FOOT CLINICAL: Male, 57 years old. Pain. TECHNIQUE: 3 view(s) of the foot. COMPARISON: November 16, 2022. FINDINGS: Normal talus, calcaneus, and tarsal bones. Normal visualized subtalar, talonavicular, calcaneocuboid, tarsal and tarsometatarsal articulations. Normal metatarsi. Healing fracture of base of the proximal phalanx of the fourth digit with slight increased callus formation . Soft tissue swelling over the fracture site. RAD/Foot min 3 Views IMPRESSION: Healing fracture of the proximal phalanx of the fourth digit. No complications. Electronically Signed: Yuval Loving, at 10:13 EDT ,
== END | disposition home or self-care (01) ==
PROVIDERS: PCP Family Medicine; Referring Provider Student in an Organized Health Care Education/Training Program; Visit Provider Student in an Organized Health Care Education/Training Program
DX: M79.671 Pain in right foot (principal)
CPT/HCPCS: 73630

== ENCOUNTER → 2023-08-01 | Outpatient (CLI) | payer OTHER, SELFPAY ==
--- NOTE | 2023-08-01 13:57 | NEURO ---
NCS and/or EMG Patient Report Ordering Doctor: Ryan Garrido DATE OF SERVICE: 08/01/23 Roberto presents for electrodiagnostic testing of the right upper limb. Reports numbness and tingling in the right hand for the past several months. Electrodiagnostic findings: Right median motor nerve demonstrates prolonged distal latency with reduced amplitude and normal conduction velocity. Normal right ulnar motor response, including conduction across the elbow. Prolonged right median F?wave. Prolonged median sensory latency at the wrist. Needle EMG testing was performed in the right upper limb. All muscles tested showed no evidence of denervation with normal motor unit action potentials. Electrodiagnostic impression: This is an abnormal study. 1. Electrodiagnostic findings consistent with right-sided median mononeuropathy. This is consistent with a moderate to advanced right carpal tunnel syndrome. 2. No electrodiagnostic evidence noted for ulnar neuropathy, including cubital tunnel syndrome. Multi Select Codes Neurology Neurology Interp Codes: 04432-40 Musc test done w/n test comp (interp) and 64942-29 Nrv cndj tst 5-6 studies (interp)
== END | disposition home or self-care (01) ==
LOC: PSN 13:03
PROVIDERS: PCP Family Medicine; Referring Provider Family Medicine; Visit Provider Family Medicine
DX: Z00.00 Encounter for general adult medical examination without abnormal findings (principal); Z12.5 Encounter for screening for malignant neoplasm of prostate; E55.9 Vitamin D deficiency, unspecified; G56.01 Carpal tunnel syndrome, right upper limb
CPT/HCPCS: 95886; 95909

== ENCOUNTER → 2023-08-03 | Outpatient (CLI) | payer OTHER, SELFPAY ==
--- NOTE | 2023-08-03 14:36 | CDU_ITS ---
Reason For Study: Carotid Stenosis Rt. Velocities/BP Lt. Velocities/BP Prox CCA 73.2/15.5 cm/sec. Prox CCA 105.2/21.2 cm/sec. Mid CCA 78.1/16.7 cm/sec. Mid CCA 119.8/24.8 cm/sec. Dist CCA 79.0/18.8 cm/sec. Dist CCA 119.8/30.3 cm/sec. Prox ICA 81.4/16.3 cm/sec. Prox ICA 73.2/20.4 cm/sec. Mid ICA 74.0/24.9 cm/sec. Mid ICA 69.0/29.3 cm/sec. Dist ICA 80.2/29.8 cm/sec. Dist ICA 85.1/28.5 cm/sec. Rt. ICA/CCA = 1.0. Lt. ICA/CCA = 0.7. Prox ECA 106.0/16.3 cm/sec. Prox ECA 121.6/15.7 cm/sec. Rt. Vert. 45.0/13.8 cm/sec. Lt. Vert. 34.8/8.6 cm/sec. Right Extracranial There is homogeneous, smooth atherosclerotic plaque noted in the right common carotid artery. There is heterogeneous, irregular atherosclerotic plaque noted in the right internal carotid artery. There is homogeneous, smooth atherosclerotic plaque noted in the right external carotid artery. Antegrade flow is noted in the right vertebral artery. Left Extracranial There is homogeneous, smooth atherosclerotic plaque noted in the left common carotid artery. There is heterogeneous, irregular atherosclerotic plaque noted in the left internal carotid artery. There is heterogeneous, irregular atherosclerotic plaque noted in the left external carotid artery. Antegrade flow is noted in the left vertebral artery. Procedure Carotid Duplex [id number]. This is a Carotid Duplex examination using B-mode, color flow and specral Doppler. The exam was diagnostic. Exam performed in department. VL/Carotid Duplex Ultrasound Interpretation Summary Mild (<50%) stenosis right extracranial internal carotid. Mild (<50%) stenosis left extracranial internal carotid. Patent and antegrade vertebrals bilaterally. Ordering Physician: Ryan Garrido Referring Physician: Ryan Garrido Performed By: Srinivasa Ramos RVT
== END | disposition home or self-care (01) ==
LOC: CVS 14:31
PROVIDERS: PCP Family Medicine; Referring Provider Family Medicine; Visit Provider Family Medicine
DX: I65.23 Occlusion and stenosis of bilateral carotid arteries (principal)
CPT/HCPCS: 93880

== ENCOUNTER 2023-08-30 06:03 | Day surgery (SDC) | payer OTHER, SELFPAY ==
--- OUTSIDE RECORDS SUMMARY | 2023-08-30 06:06 | XMS RPT_ITS | CCD ---
Author Name Unknown Address [id number] [place] [address] Organization [facility] Results Test Name Value Interpretation Reference Range Facil ity Summary Purpose Family History No Family History Records Found Advance Directives No Advanced Directives Records Found Additional Source Comments (unrecognized sect ion and content) No Status Records Found INFORMATION SOURCE (unrecogn ized section and content) FOR RECORDS PERTAINING TO PATIENTS WHO ARE OR HAVE BEEN ENROLLED IN A CHEMICAL DEPENDENCY/SUBSTANCEABUSE PROGRAM, SOME INFORMATION MAY BE OMITTED. This clinical summary was aggregated from multiple sources. Caution should be exercised in using it in the provision of clinical care. This summary normalizes information from multiple sources, and as a consequence, information in this document may materially change the coding, format and clinical context of patient data. In addition, data may be omitted in some cases. CLINICAL DECISIONS SHOULD BE BASED ON THE PRIMARY CLINICAL RECORDS. [facility] [employer] provides no warranty or guarantee of the accuracy or completeness of information in this document.
[2023-08-30 06:35] VITALS: BP 149/93; PULSE 73; RESP 16; TEMP 36.6; O2SAT 97; BMI 37.0
[2023-08-30] MEDS: Lactated Ringers 1,000 ML 15 ML IV (06:35)
[2023-08-30 07:01] LABS: Absolute Lymphocyte Count 2.37 X10^3/uL (0.83-4.51); Basophil# 0.06 X10^3/uL; Basophil% 0.8 % (0-1); Eosinophil# 0.25 X10^3/uL; Eosinophils% 3.4 % (0-5); Hematocrit 46.7 % (40-54); Hemoglobin 15.5 g/dL (13.0-16.5); Lymphocyte # 2.37 X10^3/ul (0.83-4.51); Mean Corp Hgb Conc 33.2 g/dL (32-36); Mean Corpuscular Hgb 30.2 pg (27.0-32.0); Monocyte# 0.75 X10^3/uL; Monocyte% 10.1 % (0-10); NRBC Flagged by Analyzer 0 % (0-5); Neutrophil # 3.97 X10^3/uL (2.7-7.7); Neutrophil % 53.6 % (47-70); Platelet Count 247 K/mm3 (150-450); RBC Distribution Width CV 12.8 % (11.6-14.6); RBC Distribution Width SD 42.7 fl (35.1-43.9); Red Blood Count 5.13 M/mm3 (4.6-6.2); White Blood Count 7.4 K/mm3 (4.4-11.0)
[2023-08-30] MEDS: Lidocaine 1% /Epi 1:100 (20ml) 20 ML Vial (07:35)
[2023-08-30 07:42] LABS: AST(SGOT) 12 U/L (15-37); Alanine Aminotransfer ALT/SGPT 27 U/L (16-61); Albumin, Serum 3.6 g/dL (3.2-5.0); Alkaline Phosphatase 84 U/L (45-117); Anion Gap 8 (5-15); BUN 24 mg/dL (7-18); BUN/Creat Ratio 24.8 RATIO (10-20); Chloride 108 mmol/L (98-107); Cholesterol 199 mg/dL (200); Creatinine, Serum 0.97 mg/dL (0.70-1.30); EST Glomerular Filtration Rate 84 mL/min (>60); Est Glom Filt Rate - Afr Amer 102 mL/min (>60); Estimated Creatinine Clearance 88.89 ml/min; Globulin 3.5 g/dL (2.2-4.2); Glucose 107 mg/dL (74-106); High Density Lipoprotein 37 mg/dL; PSA,Total - Annual Screen 0.71 ng/mL (0.00-4.00); Protein, Total 7.1 g/dL (6.4-8.2); Sodium Level 141 mmol/L (136-145); Triglycerides 179 mg/dL; Very Low Density Lipoprotein 36 mg/dL (5-40)
[2023-08-30 08:00] VITALS: BP 118/77; BP 149/93; PULSE 70; RESP 16; TEMP 36.3; O2SAT 92
[2023-08-30 08:05] VITALS: BP 130/75; BP 149/93; PULSE 63; RESP 16; O2SAT 94
[2023-08-30 08:10] VITALS: BP 132/70; BP 149/93; PULSE 64; RESP 16; O2SAT 94
[2023-08-30 08:15] VITALS: BP 127/78; BP 149/93; PULSE 66; RESP 16; TEMP 36.6; O2SAT 95
[2023-08-30 08:20] LABS: Vitamin D,25 Hydroxy 42.5 ng/mL
--- NOTE | 2023-08-30 08:21 | PCM.OPRPT ---
Report of Operation Date of Procedure: 08/30/23 Description of Surgical Findings:: Preoperative diagnosis: Right carpal tunnel syndrome Postoperative diagnosis: Right carpal tunnel syndrome Procedure: Right open carpal tunnel release Surgeon: Nick Hollis DO Anesthesia: MAC with local Sales Clerk Supervisor: Vinicius Lainez CRNA Estimated blood loss: 2 cc IV fluids: Per anesthesia record Urine output: None recorded Specimen: None Packing/drains: None Implants: None Complications: None apparent Intraoperative findings: Complete release of transverse carpal ligament, no aberrancies median nerve identified Preoperative indications: This is a 58-year-old male seen in outpatient setting for right carpal tunnel syndrome. He failed a nonoperative management in the form of NSAIDs, activity modification, nighttime bracing. Operative invention in the form of right open carpal tunnel release was offered. The risks, benefits, terms procedure reviewed with patient at length he agreed to proceed. Risk included but were not limited to bleeding, infection, loss of life or limb, need for additional surgery, persistent pain or paresthesias, worsening paresthesias, neurovascular injury, DVT or PE, wound complications, recurrence of carpal tunnel syndrome, persistent weakness, versus anesthesia. Patient expressed understanding of these risks and wished to proceed with surgery. Description of procedure: Patient identified the preoperative holding area by name, medical record number, and date of . The operative extremities marked. All questions were answered to patient's satisfaction. At time of his procedure, patient was brought to the op proceed bridges in supine a standard operating table. Hand table was attached to the patient's right side. All bony prominences were well-padded. MAC anesthesia was induced. A well-padded pneumatic tourniquet that was then applied to the right forearm. A tumescent field block was administered with 10 cc 1% lidocaine with epinephrine 1: 100,000. The right hand and wrist were then prepped and draped in normal, sterile orthopedic fashion. We performed timeout with all parties in attendance in agreement the side, site, operation be performed. No concerns were voiced and we elected to proceed with surgery. No antibiotics were administered. I then exsanguinated the right upper extremity with Esmarch bandage. Tourniquet was inflated to 250 mmHg which made up for 3 minutes. A standard longitudinal approach just radial to the hook of the hamate was made sharply from Cordero's cardinal line to the wrist crease. Full-thickness skin flaps were developed down to the level of the palmar fascia. Superficial crossing veins were cauterized with bipolar cautery. Palmar fascia was split in line with the incision. Palmaris brevis musculature was then identified and cauterized. Underlying transverse carpal ligament was then identified. The TCL was then split in line with the incision gaining access to the carpal tunnel. Carpal tunnel contents were identified. Proximal and distal complete release of the TCL was performed with Littler scissors. Approximately 1 cm of distal antebrachial fascia was also released. Perivascular fat was noted distally confirming complete distal release. No aberrancies of the median nerve were identified. Wound was copiously irrigated with normal saline solution. Tourniquet was deflated and hemostasis was excellent. I then reapproximated the skin in standard fashion with interrupted horizontal mattress 4-0 nylon suture. Sterile compression dressing was applied as well as a well-padded volar short arm plaster splint. Patient tolerated procedure well without apparent complication. He was safely awoken in the operative suite and transferred to his gurney and subsequently to PACU in stable condition. Postoperative plan: Weightbearing less than 2 pounds the operative extremity. Maintain splint x 1 week and then okay to remove. Range of motion as tolerated fingers and elbow and subsequently the wrist after splint removal. [place] prescription provided. Tylenol/ibuprofen encouraged. Follow-up in 2 weeks for suture removal. Ice and elevation encouraged.
[2023-08-30 08:35] VITALS: BP 149/93
== END 2023-08-30 08:52 | disposition home or self-care (01) ==
LOC: SDC 06:03 → AC 06:04
PROVIDERS: PCP Family Medicine; Referring Provider Family Medicine; Visit Provider Student in an Organized Health Care Education/Training Program
PROC: (CPT 64721; principal; 2023-08-30 07:15)
DX: G56.01 Carpal tunnel syndrome, right upper limb (principal); I10 Essential (primary) hypertension; Z79.899 Other long term (current) drug therapy; E55.9 Vitamin D deficiency, unspecified; Z12.5 Encounter for screening for malignant neoplasm of prostate
CPT/HCPCS: 64721; 01810; 36415; 80053; 80061; 82306; 84153; 85025; J7120; G0103; J2405

== ENCOUNTER → 2024-09-01 | Outpatient (CLI) | payer OTHER, SELFPAY ==
--- NOTE | 2024-09-01 14:55 | RAD_ITS ---
STUDY: X-RAY - LEFT FOOT CLINICAL: Male, 59 years old. PAIN / ULCER TECHNIQUE: 3 views of the left foot. COMPARISON: None. FINDINGS: Normal talus, calcaneus, and tarsal bones. Normal visualized subtalar, talonavicular, calcaneocuboid, tarsal and tarsometatarsal articulations. There is an anchor in the second metatarsal head. Normal third through fifth metatarsi. There is metallic fusion hardware with plate and screws across the first MTP joint. There is mature osseous fusion across the first MTP joint. There is a bipartite fibular hallux sesamoid. 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 Normal second through fifth metatarsophalangeal joints. Normal interphalangeal joints and phalanges of the lesser toes. The soft tissue structures are unremarkable. RAD/Foot min 3 Views IMPRESSION: Metallic fusion hardware with plate and screws across the first MTP joint. Mature osseous fusion across the first MTP joint. 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 Electronically Signed: Manjeet Rizo MD at 14:36 EST ,
== END | disposition home or self-care (01) ==
LOC: MTRAD 14:48
PROVIDERS: PCP Family Medicine; Referring Provider Student in an Organized Health Care Education/Training Program; Visit Provider Student in an Organized Health Care Education/Training Program
DX: L97.522 Non-pressure chronic ulcer of other part of left foot with fat layer exposed (principal); M20.5X2 Other deformities of toe(s) (acquired), left foot
CPT/HCPCS: 73630

== ENCOUNTER 2024-09-12 11:57 | Day surgery (SDC) | payer OTHER, SELFPAY ==
--- NOTE | 2024-09-09 08:37 | EKG12_ITS ---
Test Reason : PREOP Blood Pressure : */* mmHG Vent. Rate : 59 BPM Atrial Rate : 59 BPM P-R Int : 154 ms QRS Dur : 90 ms QT Int : 392 ms P-R-T Axes : 25 22 0 degrees QTcB Int : 388 ms Sinus bradycardia Otherwise normal ECG Confirmed by CHARLEE TANG, PAOLA ([id number]), clinical editor DOUG MULLINS ([id number]) on 09/10/2024 5:48:59 AM Referred By: Alan Harrell Confirmed By: PAOLA DESHPANDE MD
[2024-09-09 09:29] LABS: Absolute Lymphocyte Count 1.67 X10^3/uL (0.83-4.51); Absolute Neutrophil Count 3.3 X10^3/uL (2.0-7.7); Basophil# 0.05 X10^3/uL; Basophil% 0.9 % (0-1); Eosinophil# 0.15 X10^3/uL; Eosinophils% 2.6 % (0-5); Hematocrit 43.8 % (40-54); Hemoglobin 14.9 g/dL (13.0-16.5); Lymphocyte # 1.67 X10^3/ul (0.83-4.51); Lymphocyte % 29.1 % (19-41); Mean Corpuscular Hgb 31.2 pg (27.0-32.0); Mean Corpuscular Volume 91.6 fL (80-94); Monocyte# 0.55 X10^3/uL; Monocyte% 9.6 % (0-10); NRBC Flagged by Analyzer 0 % (0-5); Neutrophil # 3.29 X10^3/uL (2.7-7.7); Neutrophil % 57.5 % (47-70); Platelet Count 237 K/mm3 (150-450); RBC Distribution Width CV 12.8 % (11.6-14.6); RBC Distribution Width SD 43.7 fl (35.1-43.9); Red Blood Count 4.78 M/mm3 (4.6-6.2); White Blood Count 5.7 K/mm3 (4.4-11.0)
[2024-09-09 09:55] LABS: Vitamin D,25 Hydroxy 34.9 ng/mL
[2024-09-09 09:56] LABS: ALB/GLOB Ratio 1.1 RATIO (0.9-2.4); AST(SGOT) 13 U/L (15-37); Alanine Aminotransfer ALT/SGPT 24 U/L (16-61); Albumin, Serum 3.6 g/dL (3.2-5.0); Alkaline Phosphatase 94 U/L (45-117); Anion Gap 5 (5-15); BUN 23 mg/dL (7-18); BUN/Creat Ratio 24.8 RATIO (10-20); Calcium,Total 9.5 mg/dL (8.5-10.1); Chloride 110 mmol/L (98-107); Cholesterol 183 mg/dL (200); Creatinine, Serum 0.93 mg/dL (0.70-1.30); EST Glomerular Filtration Rate 88 mL/min (>60); Est Glom Filt Rate - Afr Amer 106 mL/min (>60); Globulin 3.4 g/dL (2.2-4.2); Glucose 107 mg/dL (74-106); High Density Lipoprotein 44 mg/dL; PSA,Total - Annual Screen 0.74 ng/mL (0.00-4.00); Sodium Level 141 mmol/L (136-145); Triglycerides 121 mg/dL; Very Low Density Lipoprotein 24 mg/dL (5-40)
[2024-09-12] VITALS (8 sets, daily range): BP systolic 106–139; BP diastolic 72–86; PULSE 63–86; RESP 14–16; TEMP 36.5–37.4; O2SAT 93–98; BMI 36.3
--- NOTE | 2024-09-12 12:50 | PCM.DC ---
Discharge Instructions Diet Discharge Diet: No restrictions DC O2, CPAP, BIPAP needs Home O2 Discharge instructions: No Dressing / Incision Discharge Activity: May Drive (May resume driving once off narcotic medication.) and May Shower (May shower utilizing cast bag to keep dressings clean, dry, and intact to the left foot) Weight Bearing Status: Weight bearing as tolerated (May remain weightbearing as tolerated to left foot in surgical shoe or CAM boot) Keep extremity elevated above heart level: Left Leg (Please elevate left leg at all times of rest for postoperative edema control) Dressing / Incision Call your doctor if you observe: Fever of 101 or Higher, Shortness of breath, Chest pain, Calf discomfort and Uncontrolled pain Change Dressing in: do not change dressing Remove Dressing in: leave in place till F/U (Leave dressings clean, dry, and intact to the left foot. Physician will change dressing at first postoperative appointment) Cleanse incision/area with: Do not get Incision Wet and Keep Dressing Clean & Dry (Please keep dressings clean, dry, and intact to the left foot and utilize cast bag when showering to remain compliant.) Follow Up Care Please Follow Up With: Alan Harrell DPM When: Patient has first postoperative point with me in office early next week Test Results: Test results from this visit will be discussed in further detail at your follow-up appointment, if applicable. Discharge Plan Admission Attending Provider: Alan Harrell Primary Care Provider: Ryan Garrido Instructions Print Language: Lebanese Discharge Orders/Prescriptions Prescriptions: New oxycodone-acetaminophen 5-325 mg tablet 1 tab PO Q8H PRN (Reason: pain) 7 Days Qty: 28 0RF No Action amlodipine 5 mg tablet 10 mg PO DAILY Patient Comments: TAKE 1 TABLET BY MOUTHVONCE DAILY ibuprofen [Advil] 200 mg tablet 200 mg PO Q8H PRN (Reason: pain) doxycycline hyclate 100 mg capsule 100 mg PO DAILY Referrals / Follow Up: Ryan Garrido DO [Primary Care Provider] - Disposition Disposition (needs filled in before D/C Order can be placed): Home, Self Care
--- NOTE | 2024-09-12 13:10 | PRE.ANES_ITS ---
ASA Classification* ASA Classification ASA Classification: 2 Assessment & Plan Anesthesia* Anesthesia Assessment Anesthesia Assessment: Discussed sedation and/or anesthesia options, risks, benefits, and alternatives with patient/parents/legal guardian/POA. Questions invited. The patient/parents/legal guardian/POA seems to understand and agrees to proceed with anesthesia plan. Reviewed the physical assessment, medical history, allergy history and patient home medications list prior to surgery/procedure/anesthetic and documented any changes. Performed airway and anesthesia risk assessments. Anesthesia Type Anesthesia Type: MAC (With general backup) and Block (A popliteal block was discussed with the patient. Patient wants to hold off for now. If he is in excruciating pain he will decide in recovery.) History Source History Obtained from:: Patient and Chart Anesthesia Focused Assessment* Temperature: 99.3 F Pulse Rate: 69 Blood Pressure: 139/84 Respiratory Rate: 14 Pulse Ox: 95 Oxygen Delivery Method: Room Air Airway Assessment Mouth opens: >3 cm Mallampati Score: III Teeth Condition: Caps/Crowns (Patient has a couple of crowns. They are tight.) Neck Range of motion (ROM): Limited ROM (Somewhat decreased extension) Focused Labs Anesthesia Preop lab: CBC WBC 5.7 K/mm3 (4.4-11.0) 09/09/24 09:04 RBC 4.78 M/mm3 (4.6-6.2) 09/09/24 09:04 Hgb 14.9 g/dL (13.0-16.5) 09/09/24 09:04 Hct 43.8 % (40-54) 09/09/24 09:04 Plt Count 237 K/mm3 (150-450) 09/09/24 09:04 CHEMISTRY Potassium 4.0 mmol/L (3.5-5.1) 09/09/24 09:04 Sodium 141 mmol/L (136-145) 09/09/24 09:04 BUN 23 mg/dL (7-18) H 09/09/24 09:04 Creatinine 0.93 mg/dL (0.70-1.30) 09/09/24 09:04 Glucose 107 mg/dL (74-106) H 09/09/24 09:04 TSH 1.95 uIU/mL (0.358-3.74) 08/17/21 08:52 COAG Pre-Assessment Diagnosis/Proposed Procedure Planned Operative Procedure(s): (L) Fountain osteotomy of the left hallux interphalangeal joint. Anesthesia History Anesthesia History - collection systems administrator: Anesthesia History - collection systems administrator Hx Hospitalization No 09/08/24 13:15 Any Problems With Anesthesia Yes: N,V 09/08/24 13:15 Cholinesterase deficiency No 09/08/24 13:15 You/Your Family Experience No 09/08/24 13:15 fever (hyperthermia) with Relationship Recent Exposure to Contagious No 09/12/24 12:24 Disease Does patient have nerve No 09/08/24 13:15 stimulator Patient instructed to have device shut off --Does patient have Pacemaker No 09/12/24 12:24 or ICD? When Was Last Pacemaker Check QUESTION #4 FULL TEXT: You/Your Family Experience fever (hyperthermia) with Anesthesia Last Oral Intake Last Oral intake: Last Oral Intake NPO since 07:30 09/12/24 12:24 Meds taken in AM with sips of Yes 09/12/24 12:24 water? Meds patient instructed to take am of surgery Any additional information?: Yes Meds taken in AM with sips of water?: Yes PONV PONV - collection systems administrator: PONV - collection systems administrator Female No 09/08/24 13:15 HX of Motion Sickness No 09/08/24 13:15 HX of N/V After Surgery No 09/08/24 13:15 Non-Smoker Yes 09/08/24 13:15 Duration of Surgery greater No 09/08/24 13:15 than 60 minutes Number of Risk Factors 1 09/08/24 13:15 PONV Score Low Risk 09/08/24 13:15 Height & Weight Height & Weight: Anesthesia: Height & Weight Height 6 ft 09/12/24 12:24 Weight: 121.4 kg 09/12/24 12:24 Body Mass Index (BMI) 36.3 09/12/24 12:24 Respiratory Assessment Respiratory Assessment - collection systems administrator: Respiratory Tract Infection Hx - collection systems administrator Hx Respiratory Tract Infection No 09/08/24 13:15 STOP Sleep Apnea STOP Sleep Apnea - collection systems administrator: STOP Sleep Apnea - collection systems administrator Hx Hypertension Yes: CONTROLLED WITH MED 09/08/24 13:15 Hx Sleep Apnea Yes 09/08/24 13:15 CPAP Yes: NONCOMPLIANT 09/08/24 13:15 BIPAP No 09/08/24 13:15 Do you snore loudly (louder than talking or can be heard Do you often feel tired/ fatigued/ sleepy during daytime? Has anyone observed you stop breathing during sleep? STOP Results Positive 09/08/24 13:15 QUESTION #5 FULL TEXT : Do you snore loudly (louder than talking or can be heard through closed doors)? Tobacco Use History Tobacco Use History - collection systems administrator: Tobacco Use History - collection systems administrator Tobacco Use Smoking Status Never smoker 09/08/24 13:15 Hx Tobacco Use No 09/08/24 13:15 Years Smoking Packs Smoked per Day Smoking Cessation Date was within the last 15 years Hx Smoking Cessation Date Hx Smoking Cessation Counseling Hematologic Medial History Hematologic Hx - collection systems administrator: Hematologic Medical Hx - waste recycler Hx of Blood Transfusion No 09/08/24 13:15 Hx of Transfusion in last 3 No 09/08/24 13:15 Months Date of Last Transfusion (if within last 3 months) Ever experience any problems No 09/08/24 13:15 with transfusion(s)? Specify any problems Hx of Preganancy in last 3 N/A 09/08/24 13:15 Months Nurse Filling Out Transfusion VCHRISTIN 09/08/24 13:15 & Questions: Date: 09/08/24 09/08/24 13:15 Time: 13:16 09/08/24 13:15 Patient unable to answer at this time (ie. confused, unrespo /Reproduction History /Reproductive History - collection systems administrator: /Reproductive Hx- collection systems administrator Hx Now Gestational Age (in weeks): EDC: Hx Hx Para Hx Section SAB No 09/08/24 13:15 Active Medications Active Medications: Current Medications Generic Name Dose Route Start Last Admin Trade Name Freq PRN Reason Stop Dose Admin Cefazolin Sodium 2 gm/ N/A 20 mls @ 400 mls/hr 09/12/24 13:30 IV 09/12/24 13:32 PREOP [facility] Medical History Wears glasses Arthritis Fatty liver CPAP (continuous positive airway pressure) dependence Non-smoker Hypertension Personal history of colonic polyps Impacted cerumen of left ear Home Medications ?Medication ?Instructions ?Recorded ?Last Taken ?Type amlodipine 5 mg tablet 10 mg PO DAILY 05/04/23 09/12/24 07:30 History ibuprofen 200 mg tablet (Advil) 200 mg PO Q8H PRN pain 08/22/23 Unknown History doxycycline hyclate 100 mg capsule 100 mg PO DAILY 09/08/24 09/12/24 07:30 History oxycodone-acetaminophen 5 mg-325 1 tab PO Q8H PRN pain 7 days #28 09/12/24 Unknown Rx mg tablet tabs Allergy/AdvReac Type Severity Reaction Status Date / Time No Known Allergies Allergy Verified 09/12/24 12:19 Surgical History History of carpal tunnel surgery of right wrist History of carpal tunnel surgery of left wrist Hx of colonoscopy History of lumbar surgery History of foot surgery Social History Smoking Status: Never smoker alcohol intake: current alcohol intake frequency: a few times a week Review of Systems (Anesthesia) ROS Narrative System reviewed and no additional complaints, except as documented.
--- NOTE | 2024-09-12 13:21 | RAD_ITS ---
INDICATION: OSTEOTOMY LT HALLUX EXAMINATION/TECHNIQUE: X-RAY - LEFT XR Foot 3 Views COMPARISON: FINDINGS: Osteotomy of the proximal phalangeal head of the first toe with postsurgical changes. Status post surgical fusion of the first metatarsophalangeal articulation. RAD/Foot 2 Views IMPRESSION: Post surgical changes with osteotomy of the proximal phalanx first toe. Electronically Signed: Fabian Pollock DO at 16:20 EST ,
[2024-09-12] MEDS: Cefazolin 2 GM in Syringe IV (14:04)
[2024-09-12] MEDS: Lidocaine 1% (20 ml mdv) 20 ML Vial (14:04)
[2024-09-12] MEDS: Bupivacaine 0.25% 30 ML Vial (14:04)
--- NOTE | 2024-09-12 14:57 | PCM.POST.ANE ---
Anesthesia: Postop Eval I Current Vital Signs Temperature: 98 F Pulse Rate: 84 Blood Pressure: 106/86 Respiratory Rate: 14 Pulse Ox: 98 Oxygen Delivery Method: Room Air Assessment Airway patent: Yes Spontaneous unlabored respirations: Yes Mental status: Awake nausea: No Vomiting: No Anesthesia Complication: No Fluid Hydration Crystalloid volume administer (ml): 500 Total IV fluid infused: 500 Progress Note Anesthesia document: Postop Eval 1 completed: Yes
--- NOTE | 2024-09-12 15:02 | RAD_ITS ---
INDICATION: Post-op Hallux Arthroplasty (PACU) EXAMINATION/TECHNIQUE: X-RAY - LEFT XR Foot Min 3 Views 3 VIEWS COMPARISON: FINDINGS: Status post osteotomy at the proximal phalangeal head of first toe. Surgical fusion of the first metatarsophalangeal articulation. There is an orthopedic screw in the head of the second metatarsal bone. Post surgical changes in the soft tissue of the first toe. RAD/Foot min 3 Views IMPRESSION: Postsurgical changes as noted. Electronically Signed: Fabian Pollock DO at 16:40 EST ,
--- NOTE | 2024-09-12 15:09 | OP.PCM_ITS ---
Problems Associated Problem List Diagnoses (1) Arthrosis of left foot: (2) Acquired hallux extensus of left foot: (3) Pain in left foot: Operative Report (Standard) Operative Information Date of Procedure: 09/12/24 Pre-Operative Diagnosis: 1. Primary osteoarthritis left foot 2. Hallux extensors left foot 3. 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 Pain left foot Post-Operative Diagnosis: 1. Primary osteoarthritis left foot 2. Hallux extensors left foot 3. 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 Pain left foot Surgery/Procedure Performed: 1. Arthroplasty hallucal IPJ left foot 2. Extensor hallucis longus tendon lengthening left foot qualitative field project manager: Yes Dental Patient Coordinator: Dr. Lisa Paiz, DPM PGY-1 Tasks completed by assistant professor of english: Opening & closing, Dissecting tissue, Retracting and Other (cutting bone) Type of Anesthesia: Local (20 cc one-to-one mixture 1% lidocaine plain and 0.25% Marcaine plain) and MAC RN Documented Start/Stop Times: Operation Date: 09/12/24 13:30 Case Time Into Pre-Op 09/12/24 12:06 Out of Pre-Op 09/12/24 13:27 Anesthesia Start 09/12/24 13:40 Into Room 09/12/24 13:41 Procedure Start 09/12/24 14:06 Procedure End 09/12/24 14:47 Anesthesia End 09/12/24 14:52 Out of Room 09/12/24 14:52 Into Recovery 09/12/24 14:55 Out of Recovery 09/12/24 15:19 Into Phase II Recovery 09/12/24 15:20 Out of Phase II 09/12/24 15:50 Procedure Start Time: 14:06 Procedure Stop Time: 14:47 Select all DRAINS/GRAFTS/IMPLANTS that apply: None Estimated Blood Loss: < 1mL Specimen collected: No Description of surgery: HPI/indication: This is a 59-year-old male who presents to office with continued chronic preulcerative lesion to the plantar medial aspect of the left hallucal IPJ. Patient had undergone previous first MTPJ arthrodesis to treat bunion deformity by another provider. Patient states that after procedure and return to weightbearing he slowly developed a hyperkeratotic lesion overlying the hallucal IPJ that does cause pain and has ulcerated in the past. Patient is not diabetic and thus when he does ulcerate due to excessive hallucal IPJ flexion he does have pain. He had tried continued offloading of the site but does not want to continue offloading long-term when he still does develop hyperkeratosis. 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 Discussed performing an arthroplasty of the proximal phalanx head of the left hallux. Risks and complications were discussed in detail. Typical postoperative recovery was discussed in detail. Discussed the risks and compli cations include but are not limited to the following: Pain, continued pain, complex regional pain syndrome, infection, dehiscence, delayed healing/nonhealing, overcorrection/under correction, neuritis/numbness, edema, recurrence, need for further surgery/intervention, cock-up toe, difficulty ambulating in shoe gear, difficulty wearing shoe gear, bleeding, blood clot, stroke, heart attack, addiction to pain medication, loss of function, loss of limb, loss of life. Patient is understanding of these and was able to repeat these back. Patient wishes to proceed forward with surgical intervention and did sign consent freely. Patient was cleared for surgical intervention by PCP. All diagnostic data was reviewed prior to entering the OR. Operative limb was signed prior to entering the OR. Patient was set to undergo arthroplasty of the right hallux interphalangeal joint at [facility] on 09/12/2024. Procedure: Under mild sedation patient brought in the operating placed on the table in supine position and secured to table with safety belt. Following induction of IV anesthetic a pneumatic ankle tourniquet was placed about the patient's left ankle. A blanket bump was then utilized to bump the left hip and the left foot was also elevated via a blanket bump. A local anesthetic block was then performed about the first metatarsal head consisting of 20 cc one-to-one mixture of 1% lidocaine plain and 0.5% Marcaine plain. The left foot was then scrubbed, prepped, and draped in the usual aseptic manner. An Esmarch bandage was utilized to exsanguinate the left foot and the foot was elevated and the pneumatic ankle tourniquet was inflated to 250 mmHg. At this time attention was directed to the left foot in particular the left hallux where under guidance of fluoroscopy a linear incision was placed dorsally from the base of the proximal phalanx and extended distally to the distal phalanx but just proximal to the hallux toenail. Incision was deepened via sharp and blunt dissection and care was taken to identify and retract all vital neurovascular structures. The extensor hallucis longus tendon was identified and retracted laterally and protected throughout the duration of the case. The the interphalangeal joint was identified and transected utilizing a #15 blade and dissected of soft tissue attachment to free the head of the proximal phalanx which was visualized at the operative field. Next, utilizing a sagittal saw the head of the proximal phalanx was resected and passed from the operative field to the table in toto. Bone was noted to be of hard quality and healthy in appearance and was discarded per policy. Site was flushed with copious amounts of normal sterile saline. The site of the hallucal IPJ hyperkeratosis was sharply debrided utilizing a #15 blade, following debridement there was no ulceration noted and there was healthy appearing tissue. At this time the EHL tendon underwent tendon lengthening and was reinforced at the base of the distal phalanx utilizing 4-0 Vicryl. Foot was loaded and there was no hallux extensus noted and the site of previous ulceration was sufficiently offloaded with no prominence. Remaining portion of bone was smoothed with a bone rasp at the proximal phalanx. Fluoroscopic imaging was obtained demonstrating arthroplasty of the hallucal IPJ and was reviewed prior to closure. Site was again flushed with copious amounts of normal sterile saline. Deep tissues were then closed utilizing 4-0 Vicryl. Subcutaneous tissues were closed utilizing 4-0 Monocryl. And the skin was reapproximated utilizing 3-0 Prolene in simple interrupted fashion. The pneumatic ankle tourniquet was then deflated and a prompt hyperemic response was noted to the digits of the left foot. Incision site was then dressed with Betadine soaked Adaptic, 4 x 4 fluff, 4 x 4 gauze, Kerlix, and 4 inch Srinivasan wrap rolled onto the left foot. Patient tolerated the procedure and anesthesia well was transported the PACU vital signs stable vascular status intact to the left foot. He was given aftercare instructions to follow during postoperative recovery. These were also discussed with his who will be aiding in his care. He is permitted to bear weight to tolerance with protection in CAM boot. He is permitted to remove boot for sleeping purposes. He is to keep all dressings clean, dry, and intact to the left foot and utilize cast bag when showering to remain in compliance. Will also continue to elevate foot at all times of rest for postoperative edema control. Will take postoperative medications as instructed. He will continue to follow in office with me for postoperative care with appointment early next week. Surgical Findings: See operative note for findings Complications Complications: No Admit VTE Documentation VTE Present on Admission: No VTE Mechan Device Prophylaxis: SCD's VTE Pharm Prophylaxis ordered?: No Reason prophylaxis not ordered: Treatment Not Indicated
--- NOTE | 2024-09-12 19:35 | POSTOPAN2_ITS ---
Anesthesia Postop Eval I Sum Postop Eval Completion status Anesthesia document: Postop Eval 1 completed: Yes Anesthesia Postop Eval I Summary Anesthesia Postop Eval I Summary: Anesthesia Postop Eval I: Assessment Summary Airway patent Yes 09/12/24 14:58 LIFE ENRICHMENT ASSISTANT.[email or web address] Spontaneous unlabored Yes 09/12/24 14:58 LIFE ENRICHMENT ASSISTANT.HBARR respirations Mental status Awake 09/12/24 14:58 LIFE ENRICHMENT ASSISTANT.HBARR nausea No 09/12/24 14:58 LIFE ENRICHMENT ASSISTANT.HBARR Vomiting No 09/12/24 14:58 LIFE ENRICHMENT ASSISTANT.HBARR Anesthesia Postop Eval I: Fluid Summary Crystalloid volume administer 500 09/12/24 14:58 LIFE ENRICHMENT ASSISTANT.HBARR (ml) Colloids volume administered ( ml) Blood Product volume administered (ml) Total IV fluid infused 500 09/12/24 14:58 LIFE ENRICHMENT ASSISTANT.HBARR Anesthesia Postop Eval I: Summary Notes Anesthesia Complication No 09/12/24 14:58 LIFE ENRICHMENT ASSISTANT.HBARR Anesthesia Complication Comment: Post-operative progress note Anesthesia: Postop Eval II Evaluation Mental status: Awake and Calm Pain Level: 1 nausea: No Vomiting: No Complications Anesthesia Complication: No
--- NOTE | 2024-09-12 19:35 | PCM.POSTANE2 ---
Anesthesia Postop Eval I Sum Postop Eval Completion status Anesthesia document: Postop Eval 1 completed: Yes Anesthesia Postop Eval I Summary Anesthesia Postop Eval I Summary: Anesthesia Postop Eval I: Assessment Summary Airway patent Yes 09/12/24 14:58 TRANSPORTATION DEPARTMENT HEAD.[email or web address] Spontaneous unlabored Yes 09/12/24 14:58 TRANSPORTATION DEPARTMENT HEAD.HBARR respirations Mental status Awake 09/12/24 14:58 TRANSPORTATION DEPARTMENT HEAD.HBARR nausea No 09/12/24 14:58 TRANSPORTATION DEPARTMENT HEAD.HBARR Vomiting No 09/12/24 14:58 TRANSPORTATION DEPARTMENT HEAD.HBARR Anesthesia Postop Eval I: Fluid Summary Crystalloid volume administer 500 09/12/24 14:58 TRANSPORTATION DEPARTMENT HEAD.HBARR (ml) Colloids volume administered ( ml) Blood Product volume administered (ml) Total IV fluid infused 500 09/12/24 14:58 TRANSPORTATION DEPARTMENT HEAD.HBARR Anesthesia Postop Eval I: Summary Notes Anesthesia Complication No 09/12/24 14:58 TRANSPORTATION DEPARTMENT HEAD.HBARR Anesthesia Complication Comment: Post-operative progress note Anesthesia: Postop Eval II Evaluation Mental status: Awake and Calm Pain Level: 1 nausea: No Vomiting: No Complications Anesthesia Complication: No
== END 2024-09-12 15:50 | disposition home or self-care (01) ==
LOC: SDC 11:58 → AC 11:58
PROVIDERS: PCP Family Medicine; Referring Provider Student in an Organized Health Care Education/Training Program; Visit Provider Student in an Organized Health Care Education/Training Program
PROC: (CPT 28292; principal; 2024-09-12 13:15)
DX: M19.072 Primary osteoarthritis, left ankle and foot (principal); E66.01 Morbid (severe) obesity due to excess calories; M20.12 Hallux valgus (acquired), left foot; I10 Essential (primary) hypertension; N40.1 Benign prostatic hyperplasia with lower urinary tract symptoms; N13.8 Other obstructive and reflux uropathy; E55.9 Vitamin D deficiency, unspecified; Z68.36 Body mass index [BMI] 36.0-36.9, adult; Z79.899 Other long term (current) drug therapy
CPT/HCPCS: 28292; 01480; 36415; 73620; 73630; 76000; 80053; 80061; 82306; 84153; 85025; 93005; A4216; G0103; J2405

== ENCOUNTER → 2025-06-12 | Outpatient (CLI) | payer OTHER, SELFPAY ==
--- NOTE | 2025-06-12 08:02 | CT_ITS ---
PROCEDURE: EXTREMITY LOWER WITHOUT CONTRA 06/12/2025 REASON FOR EXAM: TEMPLATING FOR LEFT TKA TECHNIQUE: Procedure Code: CTELWO Modality: CT Procedure: EXTREMITY LOWER WITHOUT CONTRA Coronal and Sagittal reconstruction series were provided. CONTRAST: None One or more dose reduction techniques were used (e.g., Automated exposure control, adjustment of the mA and/or kV according to patient size, use of iterative reconstruction technique). RADIATION DOSE SUMMARY: DLP: 1247 mGycm COMPARISON: None FINDINGS: There is severe tricompartment osteoarthritis, most severe in the medial compartment. Subcortical cyst formation and marginal osteophytes are noted. There is a 0.5 cm corticated osteochondral fragment in the anterior joint space. There is a 2.0 cm enchondroma in the distal femoral metaphysis. There is no significant joint effusion. There is a 2.3 x 1.4 cm West's cyst. There is no soft tissue mass or adenopathy. Atherosclerotic calcifications are visible. CT/Extremity Lower without Contra IMPRESSION: There is severe tricompartment osteoarthritis, most severe in the medial compar tment. Subcortical cyst formation and marginal osteophytes are noted. There is a 0.5 cm corticated osteochondral fragment in the anterior joint space . There is a 2.0 cm enchondroma in the distal femoral metaphysis. There is a 2.3 x 1.4 cm West's cyst. Reading Location: [facility]
--- NOTE | 2025-06-12 08:02 | CT_ITS ---
PROCEDURE: EXTREMITY LOWER WITHOUT CONTRA 06/12/2025 REASON FOR EXAM: TEMPLATING FOR RIGHT TKA TECHNIQUE: Procedure Code: CTELWO Modality: CT Procedure: [facility] protocol right knee CT Coronal and Sagittal reconstruction series were provided. One or more dose reduction techniques were used (e.g., Automated exposure control, adjustment of the mA and/or kV according to patient size, use of iterative reconstruction technique). RADIATION DOSE SUMMARY: DLP: 1314.24 mGycm COMPARISON: Right knee series of 05/13/2025. FINDINGS: Mild arterial calcification is noted. Limited imaging of the right sacroiliac joint demonstrates mild degenerative changes. The right hip joint demonstrates mild degenerative changes. No evidence of femoral head osteonecrosis. The right ankle joint demonstrates mild degenerative changes, most apparent medially and laterally. No evidence of talar dome osteonecrosis. The right knee again shows tricompartmental degenerative changes, most prominent at the patellofemoral and especially medial compartments. Severe medial joint space narrowing is again noted. A small joint effusion is also seen. CT/Extremity Lower without Contra IMPRESSION: Right knee degenerative changes again seen, unchanged, including severe medial joint narrowing. Reading Location: [id number]
== END | disposition home or self-care (01) ==
LOC: CT 07:57
PROVIDERS: PCP Family Medicine; Referring Provider Orthopaedic Surgery; Visit Provider Orthopaedic Surgery
DX: M17.0 Bilateral primary osteoarthritis of knee (principal)
CPT/HCPCS: 73700

== ENCOUNTER 2025-08-11 06:12 | Inpatient (IN) | payer OTHER, SELFPAY ==
--- NOTE | 2025-07-30 07:02 | EKG12_ITS ---
Test Reason : PREOP Blood Pressure : */* mmHG Vent. Rate : 67 BPM Atrial Rate : 67 BPM P-R Int : 156 ms QRS Dur : 88 ms QT Int : 388 ms P-R-T Axes : 34 25 1 degrees QTcB Int : 409 ms Normal sinus rhythm Normal ECG Confirmed by CHARLEE TANG, PAOLA ([id number]), manuscript editor ERNESTO DALE ([id number]) on 07/31/2025 9:17:58 AM Referred By: Brandyn Tijerina Confirmed By: PAOLA DESHPANDE MD
[2025-07-30 07:52] LABS: Hematocrit 42.6 % (40-54); Hemoglobin 15.0 g/dL (13.0-16.5); Immature Granulocytes Count 0.010 X10^3/uL (0.0-0.0); Mean Corp Hgb Conc 35.2 g/dL (32-36); Mean Corpuscular Volume 90.8 fL (80-94); Mean Platelet Vol. 8.7 fl (6.2-12.0); NRBC Flagged by Analyzer 0 % (0-5); Platelet Count 235 K/mm3 (150-450); RBC Distribution Width CV 13.1 % (11.6-14.6); RBC Distribution Width SD 43.3 fl (35.1-43.9); Red Blood Count 4.69 M/mm3 (4.6-6.2); White Blood Count 6.9 K/mm3 (4.4-11.0)
[2025-07-30 08:06] LABS: Partial Thromboplast Time 28.3 Seconds (24.1-36.2); Prothrombin Time (Protime)PT. 14.0 SECONDS (11.7-14.9)
[2025-07-30 08:47] LABS: Magnesium 2.2 mg/dL (1.5-2.2)
[2025-07-30 08:47] LABS: Anion Gap 13 (5-15); BUN 17 mg/dL (4-19); BUN/Creat Ratio 18.2 RATIO (10-20); Calcium,Total 9.2 mg/dL (7.6-11.0); Carbon Dioxide 21.0 mmol/L (21.0-32.0); Chloride 106 mmol/L (98-108); Glucose 110 mg/dL (70-99); Potassium 4.0 mmol/L (3.3-5.1)
[2025-08-11] VITALS (13 sets, daily range): BP systolic 90–159; BP diastolic 53–97; PULSE 57–88; RESP 14–18; TEMP 36.3–37.3; O2SAT 92–100; BMI 35.2; BMI 36.8
--- OUTSIDE RECORDS SUMMARY | 2025-08-11 06:16 | XMS RPT_ITS | CCD ---
Author Organization [facility] [employer] Care Team Providers Care Drilling Engineer Name Role Phone Dr. Ryan Garrido Primary Care Provider [phone] Dr. Ryan Garrido Referring Provider Dr. Brandyn Tijerina Attending Provider Dr. Ryan Garrido Primary Care Provider [phone] Dr. Ryan Garrido Referring Provider Dr. Brandyn Tijerina Attending Provider Dr. Ryan Garrido Other Provider [phone] Dr[address] Angel Quan Attending Provider Dr. Justino Schuler Attending Provider Dr. Ryan Garrido DO Primary Care Provider Dr. Ryan Garrido DO Referring Provider Dr. Brandyn Tijerina DO Attending Provider Mai PERRIN-Shannan Gray Attending Provider Brianna Harris Attending Provider Dr. Ryan Garrido DO Primary Care Physician Dr. Brandyn Tijerina DO Attending Physician Shannan Early Attending Physician Brianna Harris Attending Physician Kayla TANG, Dr. Reis Attending Physician Brianna Carlson Attending Unavailable Ryan Garrido Referring Unavailable Radhika, Ryan Primary Care Unavailable JonosoBrandyn Referring Unavailable Breezy, Brandyn Attending Unavailable Radhika, Ryan Primary Care Unavailable Radhika, Ryan Primary Care Unavailable Annaruso, Brandyn Referring Unavailable Jonoso, Brandyn Attending Unavailable Alan Harrell Attending Unavailable Alan Harrell Referring Unavailable Radhika, Ryan Primary Care Unavailable Radhika, Ryan Primary Care Unavailable Jonoso, Brandyn Admitting Unavailable Brandyn Tijerina Attending Unavailable Alan Harrell Attending Unavailable Alan Harrell Referring Unavailable Radhika, Ryan Primary Care Unavailable Borruso, Brandyn Attending Unavailable Radhika, Ryan Referring Unavailable Radhika, Ryan Primary Care Unavailable Radhika, Ryan Primary Care Unavailable Chato Garza Attending Unavailable Breezy, Brandyn Attending Unavailable Radhika, Ryan Primary Care Unavailable Radhika, Ryan Referring Unavailable Borcassidyso, Brandyn Attending Unavailable Radhika, Ryan Referring Unavailable Radhika, Ryan Primary Care Unavailable Shannan Oneill Attending Unavailable Radhika, Ryan Referring Unavailable Radhika, Ryan Primary Care Unavailable Sterling Moss Referring Unavailable Chato Garza Attending Unavailable RadhikaRyan sprague Primary Care Unavailable Medications Current Medications Medication Drug Class(es) Dates Sig (Normalized) Sig (Original) amLODIPine 5 mg oral tablet (9 sources) Dihydropyridine Calcium Channel Yovani Start: 05-04-2023 take 2 tablets by mouth once daily Start: 05-04-2023 take 10 mg by mouth once daily Amlodipine Active 10 MG PO DAILY May 03, 2023 11:00pm meloxicam 15 mg oral tablet (2 sources) Nonsteroidal Anti-inflammatory Drug Start: 05-13-2025 take 1 tablet by mouth once daily Completed/Discontinued Medications Medication Drug Class(es) Dates Sig (Normalized) Sig (Original) acetaminophen 325 mg / HYDROcodone bitartrate 5 mg oral tablet (20 sources) Opioid Agonist Start: 08-30-2023 End: 09-08-2024 Hydrocodone-Acetamino phen 5-325 mg Tablet Discontinued 1 {tbl} PO EVERY 6 HOURS NEEDED as needed for Pain Score 1-5/10 12 3 0 August 30, 2023 September 08, 2024 2:09pm Other acute postprocedural pain Other acute postprocedural pain Start: 08-30-2023 take 1 tablet by adrian th every six hours as needed Hydrocodone-Acetaminophen Active 1 TABLE T PO EVERY 6 HOURS NEEDED 12 3 August 30, 2023 Start: 10-06-2013 End: 03-21-2020 Hydrocodone-Acetaminophen 1 TABLET tablet Discontinued 1 {tbl} PO EVERY 4 HOURS NEEDED as needed for Pain 15 0 October 06, 2013 1:00am March 21, 2020 12:04pm Start: 10-06-2013 End: 03-21-2020 take 1 tablet by mouth every four hours as needed Hydrocodone-Acetaminophen Discontinued 1 TABLET PO EVERY 4 HOURS NEEDED 15 October 06, 2013 12:00am March 21, 2020 11:04am acetaminophen 325 mg / oxyCODONE hydrochloride 5 mg oral tablet (6 sources) Opioid Agonist Start: 09-12-2024 End: 01-31-2025 Oxycodone-Acetaminophen 5-325 mg tablet Discontinued 1 {tbl} PO Q8H as needed for pain 28 7 0 September 12, 2024 January 31, 2025 11:03am Other acute postprocedural pain Other acute postprocedural pain aspirin 81 mg chewable tablet (14 sources) Platelet Aggregation Inhibitor, Nonsteroidal Anti-inflammato ry Drug Start: 10-15-2020 End: 09-06-2022 take 1 tablet by mouth once daily Aspirin 81 MG tablet,chewable Discontinued 81 mg PO DAILY@0800 October 15, 2020 1:00am September 06, 2022 9:15am doxycycline hyclate 100 mg oral capsule (6 sources) Tetracycline-cl ass Drug Start: 09-08-2024 End: 01-26-2025 take 1 capsule by mouth once daily Doxycycline Hyclate 100 mg capsule Discontinued 100 mg PO DAILY September 08, 2024 1:00am January 26, 2025 8:14am hydroCHLOROthiazide 12.5 mg / lisinopril 10 mg oral tablet (13 sources) Thiazide Diuretic, Angiotensin Converting Enzyme Inhibitor Start: 09-06-2022 End: 05-04-2023 Lisinopril-Hydrochlorothi azide 10-12.5 mg tablet Discontinued NMA PO September 06, 2022 1:00am May 04, 2023 9:33am Start: 09-06-2022 End: 05-04-2023 Lisinopril-Hydrochlorothiazi de Discontinued EACH PO September 06, 2022 12:00am May 04, 2023 8:33am ibuprofen 200 mg oral tablet (7 sources) Nonsteroidal Anti-inflammatory Drug Start: 08-22-2023 End: 05-13-2025 take 1 tablet by mouth every eight hours as needed for pain Ibuprofen (Advil) 200 mg tablet Discontinued 200 mg PO Q8H as needed for pain August 22, 2023 1:00am May 13, 2025 8:09am Multivitamin With Folic Acid (8 sources) Start: 07-25-2013 End: 03-21-2020 take 1 tablet by mouth once daily Multivitamin With Folic Acid Discontinued 1 TABLET PO DAILY July 25, 2013 1:00am March 21, 2020 12:04pm Start: 07-25-2013 End: 03-21-2020 take 1 tablet by mouth once daily Multivitamin With Folic Acid Discontinued 1 TABLET PO DAILY July 25, 2013 12:00am March 21, 2020 11:04am Multivitamin With Folic Acid 1 TABLET tablet (6 sources) Start: 07-25-2013 End: 03-21-2020 take 1 tablet by mouth once daily Multivitamin With Folic Acid 1 TABLET tablet Discontinued 1 {tbl} PO DAILY July 25, 2013 1:00am March 21, 2020 12:04pm Problems Problem Classification Problem Date Documented Date Episodic/Chronic Acquired foot deformities (6 sources) Acquired deformity of joint of big toe; Translations: [Other deformities of toe(s) (acquired), left foot] 09-12-2024 Episodic Chronic ulcer of skin (1 source) Non-pressure chronic ulcer of other part of left foot with fat layer exposed; Translations: [Non-pressure chronic ulcer of other part of left foot with fat layer exposed] Onset: 09-23-2024 Chronic Essential hypertension (13 sources) Hypertensive disorder; Translations: [Essential (primary) hypertension] 09-06-2022 Chronic Osteoarthritis (20 sources) Bilateral osteoarthritis of knees; Translations: [Bilateral primary osteoarthritis of knee] Onset: 10-11-2024 09-06-2022 Chronic Other and unspecified benign neoplasm (14 sources) History of polyp of colon; Translations: [Personal history of colonic polyps] 09-06-2022 Episodic Other connective tissue disease (4 sources) Foot pain; Translations: [Pain in left foot] 09-12-2024 Episodic Other connective tissue disease (2 sources) Pain in left foot; Translations: [Pain in left foot] 09-12-2024 Episodic Other ear and sense organ disorders (12 sources) Impacted cerumen; Translations: [Impacted cerumen, left ear] 09-06-2022 Episodic Other ear and sense organ disorders (2 sources) Impacted cerumen in left ear; Translations: [Impacted cerumen, left ear] 09-06-2022 Episodic Other lower respiratory disease (8 sources) Cough; Translations: [Cough] 01-31-2025 Episodic Other nervous system disorders (7 sources) Acute postoperative pain; Translations: [Other acute postprocedural pain] 08-30-2023 Episodic Other non-traumatic joint disorders (11 sources) Knee stiff; Translations: [Stiffness of right knee, not elsewhere classified] 09-06-2022 Episodic Other non-traumatic joint disorders (4 sources) Stiffness of right knee, not elsewhere classified; Translations: [Stiffness of joint, not elsewhere classified, lower leg] 09-06-2022 Episodic Other non-traumatic joint disorders (2 sources) Bilateral stiffness of knee joints; Translations: [Stiffness of right knee, not elsewhere classified] 09-06-2022 Episodic Other upper respiratory disease (8 sources) Seasonal allergy; Translations: [Other seasonal allergic rhinitis] 01-31-2025 Chronic Other upper respiratory disease (8 sources) Nasal discharge; Translations: [Other specified disorders of nose and nasal sinuses] 01-31-2025 Episodic Other upper respiratory disease (8 sources) Nasal congestion; Translations: [Nasal congestion] 01-31-2025 Episodic Other upper respiratory infections (8 sources) Posterior rhinorrhea; Translations: [Postnasal drip] 01-31-2025 Episodic Sprains and strains (8 sources) Strain of muscle, fascia and tendon of other parts of biceps, unspecified arm, initial encounter; Translations: [Sprains and strains of other specified sites of shoulder and upper arm] 09-20-2022 Episodic Results Test Name Value Interpretation Reference Range Facility Extremity Lower without Cont raon 06-12-2025 Extremity Lower without Contra [facility] [address] [place] [address] Extremity Lower without Contra MR#: [id number] Acct: [id number] Name: ROBERTO MONTENEGRO Rep #: [id number] : 1965 M 60 From: Wally Castrejon MD PCP: Dr. Ryan Garrido DO Status: REG CLI Study: Extremity Lower without Contra Date of Exam: Exam# [id number] Ordering Dr: Brandyn Tijerina DO PROCEDURE: EXTREMITY LOWER WITHOUT CONTRA 06/12/2025 REASON FOR EXAM: TEMPLATING FOR LEFT TKA TECHNIQUE: Procedure Code: CTELWO Modality: CT Procedure: EXTREMITY LOWER WITHOUT CONTRA Coronal and Sagittal reconstruction series were provided. CONTRAST: None One or more dose reduction techniques were used (e.g., Automated exposure control, adjustment of the mA and/or kV according to patient size, use of iterative reconstruction technique). RADIATION DOSE SUMMARY: DLP: 1247 mGycm COMPARISON: None FINDINGS: There is severe tricompartment osteoarthritis, most severe in the medial compartment. Subcortical cyst formation and marginal osteophytes are noted. There is a 0.5 cm corticated osteochondral fragment in the anterior joint space. There is a 2.0 cm enchondroma in the distal femoral metaphysis. There is no significant joint effusion. There is a 2.3 x 1.4 cm West's cyst. There is no soft tissue mass or adenopathy. Atherosclerotic calcifications are visible. CT/Extremity Lower without Contra IMPRESSION: There is severe tricompartment osteoarthritis, most severe in the medial compartment. Subcortical cyst formation and marginal osteophytes are noted. There is a 0.5 cm corticated osteochondral fragment in the anterior joint space. There is a 2.0 cm enchondroma in the distal femoral metaphysis. There is a 2.3 x 1.4 cm West's cyst. Reading Location: [facility] CC: Dr. Brandyn Tijerina DO; Dr. Ryan Grarido DO Instantizer Operator: Signed Normal [facility] Extremity Lower without Contra [facility] [address] [place] [address] Extremity Lower without Contra MR#: [id number] Acct: [id number] Name: ROBERTO MONTENEGRO Rep #: [id number] : 1965 M 60 From: Robb Mitchell PCP: Dr. Ryan Garrido DO Status: REG CLI Study: Extremity Lower without Contra Date of Exam: 1 Exam# [id number] Ordering Dr: Brandyn Tijerina DO PROCEDURE: EXTREMITY LOWER WITHOUT CONTRA 06/12/2025 REASON FOR EXAM: TEMPLATING FOR RIGHT TKA TECHNIQUE: Procedure Code: CTELWO Modality: CT Procedure: GENESIS protocol right knee CT Coronal and Sagittal reconstruction series were provided. One or more dose reduction techniques were used (e.g., Automated exposure control, adjustment of the mA and/or kV according to patient size, use of iterative reconstruction technique). RADIATION DOSE SUMMARY: DLP: 1314.24 mGycm COMPARISON: Right knee series of 05/13/2025. FINDINGS: Mild arterial calcification is noted. Limited imaging of the right sacroiliac joint demonstrates mild degenerative changes. The right hip joint demonstrates mild degenerative changes. No evidence of femoral head osteonecrosis. The right ankle joint demonstrates mild degenerative changes, most apparent medially and laterally. No evidence of talar dome osteonecrosis. The right knee again shows tricompartmental degenerative changes, most prominent at the patellofemoral and especially medial compartments. Severe medial joint space narrowing is again noted. A small joint effusion is also seen. CT/Extremity Lower without Contra IMPRESSION: Right knee degenerative changes again seen, unchanged, including severe medial joint narrowing. Reading Location: [address] CC: Dr. Brandyn Tijerina DO; Dr. Ryan Garrido DO Instantizer Operator: Signed Normal [facility] Knee 4 or More Viewson 05-13 Knee 4 or More Views [facility] [address] [place] [address] Knee 4 or More Views MR#: [id number] Acct: [id number] Name: ROBERTO MONTENEGRO Rep #: [id number] : 1965 M 60 From: Jung Karimi MD PCP: Dr. Ryan Garrido DO Status: DEP AMB Study: Knee 4 or More Views Date of Exam: 05/13/25 Exam# [id number] Ordering Dr: Brandyn Tijerina DO PROCEDURE: KNEE 4 OR MORE VIEWS 05/13/2025 REASON FOR EXAM: PAIN TECHNIQUE: Procedure Code: RADKN Modality: DX Procedure: KNEE 4 OR MORE VIEWS Laterality: COMPARISON: 08/22/2022. FINDINGS: No evidence of acute fracture or dislocation. Complete obliteration of the medial compartment joint space with marginal osteophytes. Moderate patellofemoral compartment joint space narrowing with marginal osteophytes. Mild lateral compartment joint space narrowing with small marginal osteophytes. RAD/Knee 4 or More Views IMPRESSION: Osteoarthrosis which is severe in the medial compartment. Reading Location: [id number] CC: Dr. Brandyn Tijerina DO; Dr. Ryan Garrido DO Instantizer Operator: Signed Normal [facility] Knee 4 or More Views [facility] [address] [place], [place] [id number] Knee 4 or More Views MR#: [id number] Acct: [id number] Name: ROBERTO MONTENEGRO Rep #: [id number] : 1965 M 60 From: Jung Karimi MD PCP: Dr. Ryan Garrido DO Status: DEP AMB Study: Knee 4 or More Views Date of Exam: 05/13/25 Exam# [id number] Ordering Dr: Brandyn Tijerina DO PROCEDURE: KNEE 4 OR MORE VIEWS 05/13/2025 REASON FOR EXAM: PAIN TECHNIQUE: Procedure Code: RADKN Modality: DX Procedure: KNEE 4 OR MORE VIEWS Laterality: COMPARISON: 08/22/2022. FINDINGS: No evidence of acute fracture or dislocation. Complete obliteration of the medial compartment joint space. Mild lateral compartment joint space narrowing and small marginal osteophytes. Moderate patellofemoral compartment joint space narrowing with marginal osteophytes. No knee joint effusion. RAD/Knee 4 or More Views IMPRESSION: Osteoarthrosis which is severe in the medial compartment. Reading Location: [id number] CC: Dr. Brandyn Tijerina DO; Dr. Ryan Garrido DO Instantizer Operator: Signed Normal [facility] Orthopedic Visit Reporton Orthopedic Visit Report [facility] [facility] [address] [place] [address] OFFICE VISIT Date of Service: 05/13/25 MR#: [id number] Acct: [id number] Name: ROBERTO MONTENEGRO Rep #: [id number] : 1965 Provider: Dr. Brandyn granda DO Age/Sex: 60/M Location: [facility] Status: Signed Intake Vital Signs 02/09/25 08:05 05/13/25 08:08 Height 6 ft 6 ft Weight: 265 lb 270 lb 6 oz BMI 35.9 36.6 Intake Visit Reasons: BL KNEES Allergies No Known Allergies Allergy (Verified 05/13/25 08:08) Medications ???Medication ???Instructions ???Recorded ???Confirmed ???Type amlodipine 5 mg tablet 10 mg PO DAILY 05/04/23 05/13/25 H istory meloxicam 15 mg tablet 15 mg PO QDAY 05/13/25 05/13/25 Hi story [facility] Medical History (Updated 05/13/25 @ 10:[address] Brandyn Tijerina DO) Wears glasses Arthritis Fatty liver CPAP (continuous positive airway pressure) dependence Non-smoker Hypertension Personal history of colonic polyps Impacted cerumen of left ear Surgical History History of carpal tunnel surgery of right wrist History of carpal tunnel surgery of left wrist Hx of colonoscopy History of lumbar surgery History of foot surgery Social History Smoking Status: Never smoker alcohol intake: current alcohol intake frequency: a few times a week HPI BL KNEES Details: This documentation accurately reflects the service provided and the decisions made by me, Dr. Brandyn Tijerina DO 05/13/25 [id number]. Part of today???s visit was documented by Nakia POWELL, acting as scribe. ROBERTO MONTENEGRO is a 60 year old M here today for to discuss surgery but he is unsure which knee he would want to proceed with first because they are both about equally the same. he would like to do both at the same time if possible. He did complete the Euflexxa series in January which only gave him a few months of relief. His knee is really affecting his quality of life including his gait. 02/09/2025 visit:3rd Euflexxa bilateral knee injections. Of note he did tripped in a hole in his yard last Sunday and felt pain in his posterior medial left thigh. Did develop extensive bruising on the medial side of his thigh. Plan:Bilateral knee 3rd Euflexxa injection given today. In regards to his recent injury on his left posterior medial thigh I do suspect he tore his medial hamstring I explained to him the best thing is to stretch the area. And flexibility of his entire body would be beneficial to minimize risk of further similar injuries. His pain is controlled well enough at this time. He is thinking of moving forward with total knee arthroplasty either 1 or 2 late this year 05/04/2023 visit:here today for knee pain. states that he would like to move forward with a TKA. States that both of his knees are about the same but if he were to pick which one to start with he would go with the right. He does want 08/07/23 as his surgery date. Pt states that the steroid injection on 03/21/23 did help him but only for a couple of weeks. Plan:Obtained X-rays of patient's left and right knee. Personally reviewed x-rays. There is no obvious fracture, dislocation, or lucency noted. Discussed viscosupplementation with the patient. If he has any injection in the knee he cant have surgery for 3 months after the injection. Further discussed TKA with the patient and educated that surgery would help him to get improved extension but he has good flexion of the right knee. Most important part after surgery is PT to gain as much ROM as possible after surgery. Educated that the TKA is to take away his pain from the arthritis but there is a risk of still having pain post op. Educated that it is unlikely he will gain more flexion post op then what he has right knee. 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 He could have the 2nd TKA completed as soon as 2 months after surgery or Another option is to have BL TKA at the same time but there is increased risk with blood clots, infection, and he is under anesthesia twice as long. Risks, benefits and alternatives of surgery reviewed including but not limited to bleeding, infection, nerve, artery and/or tissue damage, fracture, VTE, mechanical feel of the knee, continued pain, stiffness and expected post- operative course. His surgery would be planned as a same day surgery for unilateral and he would stay the night for BL. Patient still doesnt wish to have surgery until 07/2023 and he will call the office if he decides he wishes to proceed with BL TKA or just unilateral TKA. Follow up for IOVERA treatment or sooner if pain, swelling, numbness or associated symptoms, or concerns develop. All questions answered. Patient in (more content not included)... Normal [facility] Orthopedic Visit Reporton Orthopedic Visit Report [facility] [address] [place] [address] OFFICE VISIT Date of Service: 02/09/25 MR#: [id number] Acct: [id number] Name: ROBERTO MONTENEGRO Rep #: [id number] : 1965 Provider: Dr. Brandyn granda DO Age/Sex: 59/M Location: [facility] Status: Signed Intake Vital Signs 09/12/24 12:24 01/31/25 10:55 02/09/25 08:05 Height 6 ft 6 ft 6 ft Weight: 268 lb 4 oz 265 lb BMI 36.3 35.9 BP 120/80 Position Sitting Pulse 77 Temp 98.9 F Temp Source Oral Pulse Oximetry (%) 95 Oxygen Delivery Method room air Intake Visit Reasons: BL KNEES Chief Complaint: BL knees 3rd Euflexxa injection Accompanied by: Self Is patient in pain?: No Allergies No Known Allergies Allergy (Verified 02/09/25 08:09) Medications ???Medication ???Instructions ???Recorded ???Confirmed ???Type amlodipine 5 mg tablet 10 mg PO DAILY 05/04/23 02/09/25 H istory ibuprofen 200 mg tablet (Advil) 200 mg PO Q8H PRN pain 08/22/23 History Have you fallen in the past year?: No [facility] Medical History Wears glasses Arthritis Fatty liver CPAP (continuous positive airway pressure) dependence Non-smoker Hypertension Personal history of colonic polyps Impacted cerumen of left ear Surgical History History of carpal tunnel surgery of right wrist History of carpal tunnel surgery of left wrist Hx of colonoscopy History of lumbar surgery History of foot surgery Social History Smoking Status: Never smoker alcohol intake: current alcohol intake frequency: a few times a week HPI BL KNEES Details: This documentation accurately reflects the service provided and the decisions made by me, Dr. Brandyn Tijerina, DO 02/09/25 07. Part of today???s visit was documented by Aure Post MA, acting as scribe. ROBERTO MONTENEGRO is a 59 year old M here today for 3rd Euflexxa bilateral knee injections. Of note he did tripped in a hole in his yard last Sunday and felt pain in his posterior medial left thigh. Did develop extensive bruising on the medial side of his thigh. Ortho Exam General General: Yes no acute distress Neurologic: Yes alert and Yes oriented x3 Psychologic: Yes reasonable and appropriate Right Knee Skin/Wound: Yes CDI, No erythema, No ecchymosis and No swelling Homans Sign: No Knee ROM: Yes ROM-Extension -20 to 0 (-21 flexion contracture) and No ROM-Flexion 0-140 (125) Examination: Yes Med jt line tenderness and No Lat jt line tenderness Stability: NML: Anterior Drawer, NML: Posterior Drawer, NML: Valgus 0, NML: Valgus 30 and NML: Varus 30 Patella Translation: 1 KNEE: fixed varus deformity no edema 2/4 pedal pulses 5/5 dorsi and plantar flexion Left Knee Skin/Wound: Yes CDI, No ecchymosis, No erythema and No swelling Homans Sign: No Knee ROM: Yes ROM-Extension -20 to 0 (-20) and No ROM-Flexion 0-140 (90) Examination: Yes med jt line tenderness and No Lat jt line tenderness Stability: NML: Anterior Drawer, NML: Posterior Drawer, NML: Valgus 0, NML: Valgus 30 and NML: Varus 0 Apprehension with Lateral Translation: No Patella Translation: 1 KNEE: fixed varus deformity no joint effusion 2/4 pedal pulses There is extensive bruising of the medial thighs compartments are soft Office Procedures Euflexxa Procedure Details:: Obtained consent for injection. Under sterile conditions, injected the patients right knee with 20ml Euflazza injection. The patient tolerated the injection well without any noted complication. Patient should call our office if redness develops, pain worsens or if they have any concerns. Is this Buy Bill?: Yes Euflexxa Procedure Details:: Obtained consent for injection. Under sterile conditions, injected the patients left knee with 20ml Euflexxa injection. The patient tolerated the injection well without any noted complication. Patient should call our office if redness develops, pain worsens or if they have any concerns. Is this Buy Bill?: Yes Office Meds Euflexxa 10 mg/mL (mw 2.4-3.6 million) intra-articular syringe Performing Provider: Brandyn Tijerina DO Performing Location: [facility] Administered by: Brandyn Tijerina DO on 02/09/25 08:14 Dose Route Admin Location Dispensed Lot Number Expiration Date NDC Man ufacturer 20 mg intra-articular Right knee 2 mL [id number] 12/29/25 [address]-9 [employer] Euflexxa 10 mg/mL (mw 2.4-3.6 million) intra-articular syringe Performing Provider: Brandyn Tijerina DO Performing Location: [facility] Administered by: Brandyn Tijerina DO on 02/09/25 08:17 (more content not included)... Normal [facility] Orthopedic Visit Reporton Orthopedic Visit Report [facility] [address] [place] [address] OFFICE VISIT Date of Service: 02/02/25 MR#: [id number] Acct: [id number] Name: ROBERTO MONTENEGRO Rep #: [id number] : 1965 Provider: FLOR quezada Age/Sex: 59/M Location: [facility] Status: Signed Intake Vital Signs 09/12/24 12:24 01/31/25 10:55 Height 6 ft 6 ft Intake Visit Reasons: BL KNEES Chief Complaint: BL knees 2nd Euflexxa injection Accompanied by: Self Is patient in pain?: Yes Pain scale (1-10): 2 Allergies No Known Allergies Allergy (Verified 02/02/25 08:03) Medications ???Medication ???Instructions ???Recorded ???Confirmed ???Type amlodipine 5 mg tablet 10 mg PO DAILY 05/04/23 02/02/25 H istory ibuprofen 200 mg tablet (Advil) 200 mg PO Q8H PRN pain 08/22/23 History PFSH Medical History Wears glasses Arthritis Fatty liver CPAP (continuous positive airway pressure) dependence Non-smoker Hypertension Personal history of colonic polyps Impacted cerumen of left ear Surgical History History of carpal tunnel surgery of right wrist History of carpal tunnel surgery of left wrist Hx of colonoscopy History of lumbar surgery History of foot surgery Social History Smoking Status: Never smoker alcohol intake: current alcohol intake frequency: a few times a week HPI BL KNEES Details: This documentation accurately reflects the service provided and the decisions made by me, CAMMIE ObregonC 02/02/25 0757. Part of today???s visit was documented by Margaret Cantrell ATC, acting as scribe. ROBERTO MONTENEGRO is a 59 year old M here today for bilateral knee 2nd Euflexxa injection. Patient rates his pain a 2/10 today. He denies any reactions or concerns following the first injection. Agree with above. Roberto is a pleasant 59-year-old gentleman presenting for Euflexxa injections of the bilateral knee #2/3. Patient has had ongoing knee issues and has noticed decrease activity tolerance, it is becoming difficult for him to do the things he wants and needs to do. He has met with Dr. Tijerina and discussed possibility of knee replacement surgery. At this time, patient is pursuing the gel injections. Symptoms recently aggravated with attempt to walk with grandchildren at the zoo. Requires frequent rest breaks. ROS Const All systems reviewed are unremarkable except as noted in H and other (A O x 3, no apparent distress. No recent illness.) ENT Denies dizziness Card Denies chest pain, Denies dyspnea, Denies edema and Reports other (No palpitations) Resp Denies cough, Denies dyspnea and Reports other (No recent URI) GI Reports system reviewed and no additional complaints, except as documented, Denies nausea and Denies vomiting Musc Reports as per HPI, Reports abnormal gait, Reports arthralgias and Reports limited range of motion Neuro Yes abnormal gait and No dizziness Psych Reports system reviewed and no additional complaints, except as documented Ashutosh/Lymph Denies easy bleeding and Denies easy bruising Ortho Exam Right Knee KNEE: Skin is pink, warm, dry and intact. Positive varus alignment and gait. Range of motion: 10 to 120 degrees Palpation: Medial joint line tenderness, negative over lateral joint line Lower leg is soft, nontender, easily compressible, Homans negative Positive crepitus palpated during today's exam Distal motor or sensory intact with brisk cap refill at 2-3 seconds Left Knee KNEE: Skin is pink, warm, dry and intact. Positive varus alignment and gait. Range of motion: 10 to 110 degrees Palpation: Medial joint line tenderness, negative over lateral joint line Lower leg is soft, nontender, easily compressible, Homans negative Positive crepitus palpated during today's exam Distal motor or sensory intact with brisk cap refill at 2-3 seconds Office Procedures Euflexxa Procedure Details:: We discussed risk and benefits of injectable steroid. Obtained written and oral consent for injection. Under sterile conditions, skin was prepped with Betadine and alcohol prep, topical pain ease spray applied; injected the patient's bilateral knees with 20 mg (2 mL) each of Euflexxa, injection #2/3. Injection was easily administered and tolerated well using a 22g 1 1/2 needle to the lateral aspect of the knee joint with knee in flexed position at 90 degrees. The patient tolerated the injection well without any noted complication, No bleeding postop, dry sterile bandage applied. Patient should call our office if redness develops, pain worsens or if they have any concerns. Is this Buy Bill?: Yes Office Meds Euflexxa 10 mg/mL (mw 2.4-3 (more content not included)... Normal [facility] Urgent Care Visit Reporton 0 01-31-2025 Urgent Care Visit Report [facility] [address], [address] [place] [address] OFFICE VISIT Date of Service: 01/31/25 MR#: [id number] Acct: [id number] Name: ROBERTO MONTENEGRO Rep #: [id number] : 1965 Provider: FLOR Oneill Age/Sex: 59/M Location: [facility] Status: Signed Intake Vital Signs 01/26/25 08:06 01/31/25 10:55 Height 6 ft 6 ft Weight: 265 lb 268 lb 4 oz BMI 35.9 36.3 BP 120/80 Position Sitting Pulse 77 Temp 98.9 F Temp Source Oral Pulse Oximetry (%) 95 Oxygen Delivery Method room air Intake Visit Reasons: SINUS COMPLAINT/IGNACIO/COUGH Accompanied by: Self Allergies No Known Allergies Allergy (Verified 01/31/25 11:02) Medications ???Medication ???Instructions ???Recorded ???Confirmed ???Type amlodipine 5 mg tablet 10 mg PO DAILY 05/04/23 01/26/25 H istory ibuprofen 200 mg tablet (Advil) 200 mg PO Q8H PRN pain 08/22/23 History Nurse's Note: Patient has a sinus c/o, cough and congestion going on for a couple days. Patient states last night he could feel it going into his chest. Patient states his sinus are plugged. [facility] Medical History Wears glasses Arthritis Fatty liver CPAP (continuous positive airway pressure) dependence Non-smoker Hypertension Personal history of colonic polyps Impacted cerumen of left ear Surgical History History of carpal tunnel surgery of right wrist History of carpal tunnel surgery of left wrist Hx of colonoscopy History of lumbar surgery History of foot surgery Social History Smoking Status: Never smoker alcohol intake: current alcohol intake frequency: a few times a week HPI HPI Details: ROBERTO MONTENEGRO, is a 59 M who presents to the office today for sinus sx -sx started Sunday- started with cough- dry and then sinus plugged up, last night coughing and bringing up sputum- this morning felt achy- but sx have improved. Yesterday runny nose today congested -no fever or chills, myalgias this morning but has since subsided -no sob -non smoker -tried so far mucinex last night and this morning - bernardino seltzer nighttime last night- no nasal sprays or allergy pills ROS Const Constitutional: Positive for other (ROS negative x6 except what was placed in HPI) Exam Const General: cooperative, comfortable and no acute distress Orientation: alert, awake and oriented x3 HENMT Head: normal to inspection and normocephalic Ears: hearing grossly normal bilaterally, external ears normal and TM's normal bilaterally Nose: external nose normal and other (+ congestion and rhinorrhea. Pale boggy turbinates ) Face and sinus: normal facial exam, sinuses nontender and face symmetric Mouth: oral mucosae normal, lip normal, tongue normal, oropharynx normal and moist mucous membranes Throat: posterior oropharynx normal, tonsils normal, uvula midline and postnasal drainage Neck Neck: normal visual inspection, full ROM and no lymphadenopathy Resp Effort Inspection: normal respiratory effort, able to speak in complete sentences and symmetric chest movement Auscultation: Bilateral: Clear to Auscultation, Left: Clear to Auscultation and Right: Clear to Auscultation Cardio Rate: regular rate Rhythm: regular rhythm Heart Sounds: S1 normal and S2 normal GI Auscultation: normal bowel sounds Palpation: soft Skin General: no rashes or lesions noted and turgor normal Neuro General: patient alert, patient awake and patient oriented x3 Cognition: normal cognition Speech: speech normal Psych Appearance: grossly normal Mental Status: mental status grossly normal Attitude: cooperative Thought Process: normal Thought Content: normal Coding Level of Care Code Off vis,new,level 3 Diagnoses Acute cough R05.1 Cough type: acute PND (post-nasal drip) R09.82 Nasal congestion R09.81 Rhinorrhea J34.89 Seasonal allergies J30.2 Assessment and Plan Assessment and Plan (1) Cough: Status: Acute Qualifiers: Cough type: acute Qualified Code(s): R05.1 - Acute cough Plan: If prescribed antibiotics take the full course even if feeling better. Warm salt water gargles, warm tea with honey, increase fluids, saline nasal spray 2 squirts each nostril every 2 hours as n eeded, Flonase nasal spray 1 squirt once a day, cetirizine (Zyrtec) one daily, cool mist humidifier, Tylenol and or ibuprofen as needed for fever or discomfort. Please follow up with your Primary Care Physician for ongoing chronic problems. If symptoms change or worsen, please present to Emergency Room for further evaluation 1. See visit diagnoses, disposition, and orders. 2. Revie (more content not included)... Normal [facility] Orthopedic Visit Reporton Orthopedic Visit Report [facility] [address] [place] [address] [address] [place] [address] OFFICE VISIT Date of Service: 01/26/25 MR#: [id number] Acct: [id number] Name: ROBERTO MONTENEGRO Rep #: [id number] : 1965 Provider: Dr. Brandyn granda DO Age/Sex: 59/M Location: [facility] Status: Signed Intake Vital Signs 09/12/24 12:24 01/26/25 08:06 Height 6 ft 6 ft Weight: 265 lb BMI 35.9 Intake Visit Reasons: BL KNEES Chief Complaint: BL knees 1st Euflexxa injection Accompanied by: Self Is patient in pain?: Yes Pain scale (1-10): 2 Allergies No Known Allergies Allergy (Verified 01/26/25 08:14) Medications ???Medication ???Instructions ???Recorded ???Confirmed ???Type amlodipine 5 mg tablet 10 mg PO DAILY 05/04/23 01/26/25 H istory ibuprofen 200 mg tablet (Advil) 200 mg PO Q8H PRN pain 08/22/23 History oxycodone-acetaminophen 5 mg-325 1 tab PO Q8H PRN pain 7 days #28 0 09/12/24 01/26/25 Rx mg tablet tabs Have you fallen in the past year?: No PFSH Medical History Wears glasses Arthritis Fatty liver CPAP (continuous positive airway pressure) dependence Non-smoker Hypertension Personal history of colonic polyps Impacted cerumen of left ear Surgical History History of carpal tunnel surgery of right wrist History of carpal tunnel surgery of left wrist Hx of colonoscopy History of lumbar surgery History of foot surgery Social History Smoking Status: Never smoker alcohol intake: current alcohol intake frequency: a few times a week HPI BL KNEES Details: This documentation accurately reflects the service provided and the decisions made by me, Dr. Brandyn Tijerina, DO 01/26/25 0747. Part of today???s visit was documented by Aure Post MA, acting as scribe. ROBERTO MONTENEGRO is a 59 year old M here today for 1st Euflexxa bilateral knee injections. Ortho Exam General General: Yes no acute distress Neurologic: Yes alert and Yes oriented x3 Psychologic: Yes reasonable and appropriate Right Knee Skin/Wound: Yes CDI, No erythema, No ecchymosis and No swelling Homans Sign: No Knee ROM: Yes ROM-Extension -20 to 0 (-21 flexion contracture) and No ROM-Flexion 0-140 (125) Examination: Yes Med jt line tenderness and No Lat jt line tenderness Stability: NML: Anterior Drawer, NML: Posterior Drawer, NML: Valgus 0, NML: Valgus 30 and NML: Varus 30 Patella Translation: 1 KNEE: fixed varus deformity no edema 2/4 pedal pulses 5/5 dorsi and plantar flexion Left Knee Skin/Wound: Yes CDI, No ecchymosis, No erythema and No swelling Homans Sign: No Knee ROM: Yes ROM-Extension -20 to 0 (-20) and No ROM-Flexion 0-140 (90) Examination: Yes med jt line tenderness and No Lat jt line tenderness Stability: NML: Anterior Drawer, NML: Posterior Drawer, NML: Valgus 0, NML: Valgus 30 and NML: Varus 0 Apprehension with Lateral Translation: No Patella Translation: 1 KNEE: fixed varus deformity no joint effusion 2/4 pedal pulses Office Procedures Euflexxa Procedure Details:: Obtained consent for injection. Under sterile conditions, injected the patients right knee with 20 ml Euflexxa injection. The patient tolerated the injection well without any noted complication. Patient should call our office if redness develops, pain worsens or if they have any concerns. Is this Buy Bill?: Yes Euflexxa Procedure Details:: Obtained consent for injection. Under sterile conditions, injected the patients left knee with 20 ml Euflexxa injection. The patient tolerated the injection well without any noted complication. Patient should call our office if redness develops, pain worsens or if they have any concerns. Is this Buy Bill?: Yes Office Meds Euflexxa 10 mg/mL (mw 2.4-3.6 million) intra-articular syringe Performing Provider: Brandyn Tijerina DO Performing Location: [facility] Administered by: Brandyn Tijerina DO on 01/26/25 08:18 Dose Route Admin Location Dispensed Lot Number Expiration Date [facility] Man ufacturer 20 mg intra-articular Right knee 2 mL [id number] 12/29/25 [address]-8 [employer] Euflexxa 10 mg/mL (mw 2.4-3.6 million) intra-articular syringe Performing Provider: Brandyn Tijerina DO Performing Location: [facility] Administered by: Brandyn Tijernia DO on 01/26/25 08:20 Dose Route Admin Location Dispensed Lot Number Expiration Date [facility] Man ufacturer 20 mg intra-articular Left knee 2 mL [id number] 12/29/25 [address]-7 [employer] NG [employer] Supplemental Info 08/22/2022 x-ray right knee: Advanced [id number] medial compartment arthritis with varus de (more content not included)... Normal [facility] Discharge Instructionon 08-27 Discharge Instruction [facility] Medical Records Department [address] [address] Instructions for Home/Discharge Instructions 09/12/24 1250 MR#: [id number] Acct: [id number] Name: ROBERTO MONTENEGRO Rep #: [id number] : 1965 59 From: Alan Harrell DPM PCP: Dr. Ryan Garrido, DO Status:DEP [facility] Discharge Instructions Diet Discharge Diet: No restrictions DC O2, CPAP, BIPAP needs Home O2 Discharge instructions: No Dressing / Incision Discharge Activity: May Drive (May resume driving once off narcotic medication.) and May Shower (May shower utilizing cast bag to keep dressings clean, dry, and intact to the left foot) Weight Bearing Status: Weight bearing as tolerated (May remain weightbearing as tolerated to left foot in surgical shoe or CAM boot) Keep extremity elevated above heart level: Left Leg (Please elevate left leg at all times of rest for postoperative edema control) Dressing / Incision Call your doctor if you observe: Fever of 101 or Higher, Shortness of breath, Chest pain, Calf discomfort and Uncontrolled pain Change Dressing in: do not change dressing Remove Dressing in: leave in place till F/U (Leave dressings clean, dry, and intact to the left foot. Physician will change dressing at first postoperative appointment) Cleanse incision/area with: Do not get Incision Wet and Keep Dressing Clean Dry (Please keep dressings clean, dry, and intact to the left foot and utilize cast bag when showering to remain compliant.) Follow Up Care Please Follow Up With: Alan Harrell DPM When: Patient has first postoperative point with me in office early next week Test Results: Test results from this visit will be discussed in further detail at your follow-up appointment, if applicable. Discharge Plan Admission Attending Provider: Alan Harrell Primary Care Provider: Ryan Garrido Instructions Print Language: Polish Discharge Orders/Prescriptions Prescriptions: New oxycodone-acetaminophen 5-325 mg tablet 1 tab PO Q8H PRN (Reason: pain) 7 Days Qty: 28 0RF No Action amlodipine 5 mg tablet 10 mg PO DAILY Patient Comments: TAKE 1 TABLET BY MOUTHVONCE DAILY ibuprofen [Advil] 200 mg tablet 200 mg PO Q8H PRN (Reason: pain) doxycycline hyclate 100 mg capsule 100 mg PO DAILY Referrals / Follow Up: Ryan Garrido DO [Primary Care Provider] - Disposition Disposition (needs filled in before D/C Order can be placed): Home, Self Care 09/12/241813 Alan Harrell DPM CC: Dr. Ryan Garrido DO Signed Normal [facility] Foot 2 Viewson 09-12-2024 Foot 2 Views [facility] Imaging Services [address] [place], [place] [id number] Foot 2 Views MR#: [id number] Acct: [id number] Name: ROBERTO MONTENEGRO Rep #: [id number] : 1965 M 59 From: Fabian Pollock DO PCP: Dr. Ryan Garrido DO Status: [facility] Study: Foot 2 Views Date of Exam: 09/12/24 Exam# [id number] Ordering Dr: Alan Harrell DPM [id number] INDICATION: OSTEOTOMY LT HALLUX EXAMINATION/TECHNIQUE: X-RAY - LEFT XR Foot 3 Views COMPARISON: FINDINGS: Osteotomy of the proximal phalangeal head of the first toe with postsurgical changes. Status post surgical fusion of the first metatarsophalangeal articulation. RAD/Foot 2 Views IMPRESSION: Post surgical changes with osteotomy of the proximal phalanx first toe. Electronically Signed: Fabian Pollock DO at 16:20 EST Reading Location ID and State: [facility] [place] Tel [phone], Service support , CC: KAYLEE Harrell; Dr. Ryan Garrido DO Instantizer Operator: Signed Normal [facility] Foot min 3 Viewson 5 Foot min 3 Views [facility] Imaging Services [address] [place] [address] Foot min 3 Views MR#: [id number] Acct: [id number] Name: ROBERTO MONTENEGRO Rep #: [id number] : 1965 M 59 From: Fabian Pollock DO PCP: Dr. Ryan Garrido DO Status: [facility] Study: Foot min 3 Views Date of Exam: 09/12/24 Exam# [id number] Ordering Dr: Alan Harrell DPM [id number] INDICATION: Post-op Hallux Arthroplasty (PACU) EXAMINATION/TECHNIQUE: X-RAY - LEFT XR Foot Min 3 Views 3 VIEWS COMPARISON: FINDINGS: Status post osteotomy at the proximal phalangeal head of first toe. Surgical fusion of the first metatarsophalangeal articulation. There is an orthopedic screw in the head of the second metatarsal bone. Post surgical changes in the soft tissue of the first toe. RAD/Foot min 3 Views IMPRESSION: Postsurgical changes as noted. Electronically Signed: Fabian Pollock DO at 16:40 EST , CC: KAYLEE Harrell; Dr. Ryan Garrido DO Instantizer Operator: Signed [facility] MR/POSTOP.[facility] 09-12-2024 MR/POSTOP.[facility] Medical Records Department [address] [place] [address] Anesthesia Postop Eval I 09/12/241456 MR#: [id number] Acct: [id number] Name: ROBERTO MONTENEGRO Rep #: [id number] : 1965 59 From: Natasha Long CRNA PCP: Dr. Ryan Garrido DO Status:REG SDC Y Race: C Location: [place] [address] Anesthesia: Postop Eval I Current Vital Signs Temperature: 98 F Pulse Rate: 84 Blood Pressure: 106/86 Respiratory Rate: 14 Pulse Ox: 98 Oxygen Delivery Method: Room Air Assessment Airway patent: Yes Spontaneous unlabored respirations: Yes Mental status: Awake nausea: No Vomiting: No Anesthesia Complication: No Fluid Hydration Crystalloid volume administer (ml): 500 Total IV fluid infused: 500 Progress Note Anesthesia document: Postop Eval 1 completed: Yes 09/12/241457 Date Natasha Long GUN BARREL FINISHER Cosigner Signature: Date CC: Signed Normal [facility] MR/[id number] 09-12-2024 MR/POSTOPAN2 [facility] Medical Records Department [address] [place] [address] Anesthesia Postop Eval II 09/12/241934 MR#: [id number] Acct: [id number] Name: ROBERTO MONTENEGRO Rep #: [id number] : 1965 59 From: Juan David Lei MD PCP: Dr. Ryan Garrido, DO Status:DEP [facility] Y Race: C Location: [facility] Anesthesia Postop Eval I Sum Postop Eval Completion status Anesthesia document: Postop Eval 1 completed: Yes Anesthesia Postop Eval I Summary Anesthesia Postop Eval I Summary: Anesthesia Postop Eval I: Assessment Summary Airway patent Yes 09/12/24 14:58 GUN BARREL FINISHER.HBARR Spontaneous unlabored Yes 09/12/24 14:58 GUN BARREL FINISHER.HBARR respirations Mental status Awake 09/12/24 14:58 GUN BARREL FINISHER.HBARR nausea No 09/12/24 14:58 GUN BARREL FINISHER.HBARR Vomiting No 09/12/24 14:58 GUN BARREL FINISHER.HBARR Anesthesia Postop Eval I: Fluid Summary Crystalloid volume administer 500 09/12/24 14:58 GUN BARREL FINISHER.HBARR (ml) Colloids volume administered ( ml) Blood Product volume administered (ml) Total IV fluid infused 500 09/12/24 14:58 GUN BARREL FINISHER.HBARR Anesthesia Postop Eval I: Summary Notes Anesthesia Complication No 09/12/24 14:58 GUN BARREL FINISHER.HBARR Anesthesia Complication Comment: Post-operative progress note Anesthesia: Postop Eval II Evaluation Mental status: Awake and Calm Pain Level: 1 nausea: No Vomiting: No Complications Anesthesia Complication: No 09/12/241934 Date Juan David Lei MD Cosigner Signature: Date CC: Signed Normal [facility] Operative Reporton 5 Operative Report [facility] Medical Records Department [address] [place] [address] Operative Report 09/12/24 1509 MR#: [id number] Acct: [id number] Name: ROBERTO MONTENEGRO Rep #: [id number] : 1965 59 From: Alan Harrell DPM PCP: Dr. Ryan Garrido, DO Status:[facility] Location: [facility] Problems Associated Problem List Diagnoses (1) Arthrosis of left foot: (2) Acquired hallux extensus of left foot: (3) Pain in left foot: Operative Report (Standard) Operative Information Date of Procedure: 09/12/24 Pre-Operative Diagnosis: 1. Primary osteoarthritis left foot 2. Hallux extensors left foot 3. 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 Pain left foot Post-Operative Diagnosis: 1. Primary osteoarthritis left foot 2. Hallux extensors left foot 3. 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 Pain left foot Surgery/Procedure Performed: 1. Arthroplasty hallucal IPJ left foot 2. Extensor hallucis longus tendon lengthening left foot learning design specialist: Yes Medical Director Of Hospice: Dr. Lisa Paiz DPM PGY-1 Tasks completed by medical office assistant instructor: Opening closing, Dissecting tissue, Retracting and Other (cutting bone) Type of Anesthesia: Local (20 cc one-to-one mixture 1% lidocaine plain and 0.25% Marcaine plain) and MAC RN Documented Start/Stop Times: Operation Date: 09/12/24 13:30 Case Time Into Pre-Op 09/12/24 12:06 Out of Pre-Op 09/12/24 13:27 Anesthesia Start 09/12/24 13:40 Into Room 09/12/24 13:41 Procedure Start 09/12/24 14:06 Procedure End 09/12/24 14:47 Anesthesia End 09/12/24 14:52 Out of Room 09/12/24 14:52 Into Recovery 09/12/24 14:55 Out of Recovery 09/12/24 15:19 Into Phase II Recovery 09/12/24 15:20 Out of Phase II 09/12/24 15:50 Procedure Start Time: 14:06 Procedure Stop Time: 14:47 Select all DRAINS/GRAFTS/IMPLANTS that apply: None Estimated Blood Loss: < 1mL Specimen collected: No Description of surgery: HPI/indication: This is a 59-year-old male who presents to office with continued chronic preulcerative lesion to the plantar medial aspect of the left hallucal IPJ. Patient had undergone previous first MTPJ arthrodesis to treat bunion deformity by another provider. Patient states that after procedure and return to weightbearing he slowly developed a hyperkeratotic lesion overlying the hallucal IPJ that does cause pain and has ulcerated in the past. Patient is not diabetic and thus when he does ulcerate due to excessive hallucal IPJ flexion he does have pain. He had tried continued offloading of the site but does not want to continue offloading long-term when he still does develop hyperkeratosis. 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 Discussed performing an arthroplasty of the proximal phalanx head of the left hallux. Risks and complications were discussed in detail. Typical postoperative recovery was discussed in detail. Discussed the risks and complications include but are not limited to the following: Pain, continued pain, complex regional pain syndrome, infection, dehiscence, delayed healing/nonhealing, overcorrection/under correction, neuritis/numbness, edema, recurrence, need for further surgery/intervention, cock-up toe, difficulty ambulating in shoe gear, difficulty wearing shoe gear, bleeding, blood clot, stroke, heart attack, addiction to pain medication, loss of function, loss of limb, loss of life. Patient is understanding of these and was able to repeat these back. Patient wishes to proceed forward with surgical intervention and did sign consent freely. Patient was cleared for surgical intervention by PCP. All diagnostic data was reviewed prior to entering the OR. Operative limb was signed prior to entering the OR. Patient was set to undergo arthroplasty of the right hallux interphalangeal joint at [facility] on 09/12/2024. Procedure: Under mild sedation patient brought in the operating placed on the table in supine position and secured to table with safety belt. Following induction of IV anesthetic a pneumatic ankle tourniquet was placed about the patient's left ankle. A blanket bump was then utilized to bump the left hip and the left foot was also elevated via a blanket bump. A local anesthetic block was then performed about the first metatarsal head consisting of 20 cc one-to-one mixture of 1% lidocaine plain and 0.5% Marcaine plain. The left foot was then scrubbed, prepped, and draped in the usual aseptic manner. An Esmarch bandage was utilized to exsanguinate the left foot and the foot was elevated and the pneumatic ankle tourniquet was inflated to 250 mmHg. At this time attention was directed to the left foot in particular the left hallux where under guidance of fluoroscopy a linear incision was plac (more content not included)... Normal [facility] 12 Lead EKGon 09-09-2024 12 Lead EKG [facility] Cardiovascular Services [address] [place] [address] 12 Lead EKG 09/09/24 0844 MR#: [id number] Acct: [id number] Name: ROBERTO MONTENEGRO Rep #: [id number] : 1965 59 From: Chato Garza MD Attending Dr: Alan Harrell DPM Status: PRE [facility] [place] Ordering Dr: Sterling Moss MD Date: 09/09/24 Location: [facility] [place] Sex: M C Admitted: Test Reason : PREOP Blood Pressure : */* mmHG Vent. Rate : 59 BPM Atrial Rate : 59 BPM P-R Int : 154 ms QRS Dur : 90 ms QT Int : 392 ms P-R-T Axes : 25 22 0 degrees QTcB Int : 388 ms Sinus bradycardia Otherwise normal ECG Confirmed by CHATO GARZA MD ([id number]), book or script editor DOUG MULLINS ([id number]) on 09/10/2024 5:48:59 AM Referred By: Alan Harrell Confirmed By: CHATO GARZA MD 09/10/24 0549 Date Chato Garza MD CC: DPM Alan Harrell; Dr. Sterling Moss MD; Dr. Ryan Garrido, DO Signed Normal [facility] CBC W/Diff, Automatedon 08-27 Absolute Lymph 1.67 X10 3/uL Normal 0.83-4.51 [facility] Comment on above: Performed By: #### L 100.0100, L506.1000, L500.4050, L500.4100, L501.9910 #### [facility] Laboratory [address] [place], [address] Absolute Neut 3.3 X10 3/uL Normal 2.0-7.7 [facility] Comment on above: Performed By: #### L 100.0100, L506.1000, L500.4050, L500.4100, L501.9910 #### [facility] Laboratory [address] [place], [address] Basophils/100 WBC (Bld) 0.9 % Normal 0-1 [facility] Comment on above: Performed By: #### L 100.0100, L506.1000, L500.4050, L500.4100, L501.9910 #### [facility] Laboratory [address] [place], [address] Eosinophils/100 WBC (Bld) 2.6 % Normal 0-5 [facility] Comment on above: Performed By: #### L 100.0100, L506.1000, L500.4050, L500.4100, L501.9910 #### [facility] Laboratory [address] [place], [address] Erythrocyte distribution width (RBC) [Ratio] 12.8 % Normal 11.6-14.6 [facility] Comment on above: Performed By: #### L 100.0100, L506.1000, L500.4050, L500.4100, L501.9910 #### [facility] Laboratory [address] [place], [address] Hematocrit (Bld) [Volume fraction] 43.8 % Normal 40-54 [facility] Comment on above: Performed By: #### L 100.0100, L506.1000, L500.4050, L500.4100, L501.9910 #### [facility] Laboratory [address] [place], [address] Hemoglobin (Bld) [Mass/Vol] 14.9 g/dL Normal 13.0-16.5 [facility] Comment on above: Performed By: #### L 100.0100, L506.1000, L500.4050, L500.4100, L501.9910 #### [facility] Laboratory [address] [place], [address] IG% 0.300 Normal 0.0-0.9 [facility] Comment on above: Result Comment: IG% - Immature Granulocytes (promyelocytes, myelocytes and metamyelocytes) > 1% indicates that a LEFT SHIFT is Present. Performed By: #### L 100.0100, L506.1000, L500.4050, L500.4100, L501.9910 #### [facility] Laboratory [address] [place], [address] Lymphocytes/100 WBC (Bld) 29.1 % Normal 19-41 [facility] Comment on above: Performed By: #### L 100.0100, L506.1000, L500.4050, L500.4100, L501.9910 #### [facility] Laboratory [address] [place], [address] MCH (RBC) [Entitic mass] 31.2 pg Normal 27.0-32.0 [facility] Comment on above: Performed By: #### L 100.0100, L506.1000, L500.4050, L500.4100, L501.9910 #### [facility] Laboratory [address] [place], [address] MCHC (RBC) [Mass/Vol] 34.0 g/dL Normal 32-36 [facility] Comment on above: Performed By: #### L 100.0100, L506.1000, L500.4050, L500.4100, L501.9910 #### [facility] Laboratory [address] [place], [address] MCV (RBC) [Entitic vol] 91.6 fL Normal 80-94 [facility] Comment on above: Performed By: #### L 100.0100, L506.1000, L500.4050, L500.4100, L501.9910 #### [facility] Laboratory [address] [place], [address] Monocytes/100 WBC (Bld) 9.6 % Normal 0-10 [facility] Comment on above: Performed By: #### L 100.0100, L506.1000, L500.4050, L500.4100, L501.9910 #### [facility] Laboratory [address] [place], [address] Neutrophils/100 WBC (Bld) 57.5 % Normal 47-70 [facility] Comment on above: Performed By: #### L 100.0100, L506.1000, L500.4050, L500.4100, L501.9910 #### [facility] Laboratory [address], [address] Nucleated RBC (Bld) [#/Vol] 0 10*3/uL Normal 0-5 [facility] Comment on above: Performed By: #### L 100.0100, L506.1000, L500.4050, L500.4100, L501.9910 #### [facility] Laboratory [address] [place], [address] Platelet mean volume (Bld) [Entitic vol] 9.0 fL Normal 6.2-12.0 [facility] Comment on above: Performed By: #### L 100.0100, L506.1000, L500.4050, L500.4100, L501.9910 #### [facility] Laboratory [address] [place], [address] Platelets (Bld) [#/Vol] 237 10*3/uL Normal 150-450 [facility] Comment on above: Performed By: #### L 100.0100, L506.1000, L500.4050, L500.4100, L501.9910 #### [facility] Laboratory [address] [place], [address] RBC (Bld) [#/Vol] 4.78 10*6/uL Normal 4.6-6.2 [facility] Comment on above: Performed By: #### L 100.0100, L506.1000, L500.4050, L500.4100, L501.9910 #### [facility] Laboratory [address] [place], [address] RDW SD 43.7 fl Normal 35.1-43.9 [facility] Comment on above: Performed By: #### L 100.0100, L506.1000, L500.4050, L500.4100, L501.9910 #### [facility] Laboratory [address] [place], [address] WBC (Bld) [#/Vol] 5.7 10*3/uL Normal 4.4-11.0 [facility] Comment on above: Performed By: #### L 100.0100, L506.1000, L500.4050, L500.4100, L501.9910 #### [facility] Laboratory [address] [place], [address] Comprehensive Metabolic Prof [facility] 09-09-2024 Albumin [Mass/Vol] 3.6 g/dL Normal 3.2-5.0 [facility] Comment on above: Performed By: #### L 100.0100, L506.1000, L500.4050, L500.4100, L501.9910 #### [facility] Laboratory [address] [place], [address] Albumin/Globulin [Mass ratio] 1.1 {ratio} Normal 0.9-2.4 [facility] Comment on above: Performed By: #### L 100.0100, L506.1000, L500.4050, L500.4100, L501.9910 #### [facility] Laboratory [address] [place], [address] ALK P 94 U/L Normal 45-117 [facility] Comment on above: Performed By: #### L 100.0100, L506.1000, L500.4050, L500.4100, L501.9910 #### [facility] Laboratory [address] [place], [address] ALT [Catalytic activity/Vol] 24 U/L Normal 16-61 [facility] Comment on above: Performed By: #### L 100.0100, L506.1000, L500.4050, L500.4100, L501.9910 #### [facility] Laboratory [address] [place], [address] AST [Catalytic activity/Vol] 13 U/L Low 15-37 [facility] Comment on above: Performed By: #### L 100.0100, L506.1000, L500.4050, L500.4100, L501.9910 #### [facility] Laboratory [address] [place], [address] Bilirubin [Mass/Vol] 0.70 mg/dL Normal 0.20-1.00 [facility] Comment on above: Result Comment: For patients on eltrombopag therapy, use of Dimension Preston TBIL is not recommended. Performed By: #### L 100.0100, L506.1000, L500.4050, L500.4100, L501.9910 #### [facility] Laboratory [address] [place], [address] BUN/CRE 24.8 RATIO High 10-20 [facility] Comment on above: Performed By: #### L 100.0100, L506.1000, L500.4050, L500.4100, L501.9910 #### [facility] Laboratory [address] [place], [address] CA,Total 9.5 mg/dL Normal 8.5-10.1 [facility] Comment on above: Performed By: #### L 100.0100, L506.1000, L500.4050, L500.4100, L501.9910 #### [facility] Laboratory [address] [place], [address] Chloride [Moles/Vol] 110 mmol/L High 98-107 [facility] Comment on above: Performed By: #### L 100.0100, L506.1000, L500.4050, L500.4100, L501.9910 #### [facility] Laboratory [address] [place], [address] CO2 [Moles/Vol] 26.0 mmol/L Normal 21.0-32.0 [facility] Comment on above: Performed By: #### L 100.0100, L506.1000, L500.4050, L500.4100, L501.9910 #### [facility] Laboratory [address] [place], [address] Creatinine [Mass/Vol] 0.93 mg/dL Normal 0.70-1.30 [facility] Comment on above: Result Comment: The validity of the calculated GFR GFRAA in patients over 70 years has not been determined. Clinical correlation is essential. Performed By: #### L 100.0100, L506.1000, L500.4050, L500.4100, L501.9910 #### [facility] Laboratory [address] [place], [address] EST GFR - AA 106 mL/min Normal >60 [facility] Comment on above: Result Comment: Afri can [place]ar[place] GFR Calc Performed By: #### L 100.0100, L506.1000, L500.4050, L500.4100, L501.9910 #### [facility] Laboratory [address] [place], [address] GAP 5 Normal 5-15 [facility] Comment on above: Performed By: #### L 100.0100, L506.1000, L500.4050, L500.4100, L501.9910 #### [facility] Laboratory [address] [place], [address] GFR/1.73 sq M.predicted among non-blacks MDRD (S/P/Bld) [Vol rate/Area] 88 mL/min/{1.73_m2} Normal >60 [facility] Comment on above: Result Comment: Non- GFR Calc Performed By: #### L 100.0100, L506.1000, L500.4050, L500.4100, L501.9910 #### [facility] Laboratory [address] [place], [address] Globulin (S) [Mass/Vol] 3.4 g/dL Normal 2.2-4.2 [facility] Comment on above: Performed By: #### L 100.0100, L506.1000, L500.4050, L500.4100, L501.9910 #### [facility] Laboratory [address] [place], [address] Glucose [Mass/Vol] 107 mg/dL High 74-106 [facility] Comment on above: Result Comment: Fast ing Glucose result from 100 to 125 mg/dL suggests IMPAIRED HOMEOSTASIS per A.D.A. criteria. Performed By: #### L 100.0100, L506.1000, L500.4050, L500.4100, L501.9910 #### [facility] Laboratory [address] [place], [address] Potassium [Moles/Vol] 4.0 mmol/L Normal 3.5-5.1 [facility] Comment on above: Performed By: #### L 100.0100, L506.1000, L500.4050, L500.4100, L501.9910 #### [facility] Laboratory [address] [place], [address] Sodium [Moles/Vol] 141 mmol/L Normal 136-145 [facility] Comment on above: Performed By: #### L 100.0100, L506.1000, L500.4050, L500.4100, L501.9910 #### [facility] Laboratory [address] [place], [address] T PROT 7.0 g/dL Normal 6.4-8.2 [facility] Comment on above: Performed By: #### L 100.0100, L506.1000, L500.4050, L500.4100, L501.9910 #### [facility] Laboratory [address] [place], [address] Urea nitrogen [Mass/Vol] 23 mg/dL High 7-18 [facility] Comment on above: Performed By: #### L 100.0100, L506.1000, L500.4050, L500.4100, L501.9910 #### [facility] Laboratory [address] [place], [address] Lipid Profileon 09-09-2024 Cholesterol [Mass/Vol] 183 mg/dL Normal 200 [facility] Comment on above: Result Comment: <200 mg/dL Desirable 200-240 mg/dL Borderline >240 mg/dL High Risk Performed By: #### L 100.0100, L506.1000, L500.4050, L500.4100, L501.9910 #### [facility] Laboratory [address] [place], [address] Cholesterol in HDL [Mass/Vol] 44 mg/dL Normal [facility] Comment on above: Result Comment: The drugs N-Acetylcysteine and Metamizole may falsely depress this assay. Reference Range HDL <40 mg/dL Low HDL Cholesterol HDL >or= 60 mg/dL High HDL Cholesterol Performed By: #### L 100.0100, L506.1000, L500.4050, L500.4100, L501.9910 #### [facility] Laboratory [address] [place], [address] Cholesterol in LDL [Mass/Vol] 115 mg/dL Normal 0-130 [facility] Comment on above: Performed By: #### L 100.0100, L506.1000, L500.4050, L500.4100, L501.9910 #### [facility] Laboratory [address] [place], [address] Cholesterol in VLDL [Mass/Vol] 24 mg/dL Normal 5-40 [facility] Comment on above: Performed By: #### L 100.0100, L506.1000, L500.4050, L500.4100, L501.9910 #### [facility] Laboratory [address] [place], [address] Triglyceride [Mass/Vol] 121 mg/dL Normal [facility] Comment on above: Result Comment: The drugs N-Acetylcysteine and Metamizole may falsely depress this assay. Serum Triglycerides Reference Interval Normal <150 mg/dL Borderline high 150 - 199 mg/dL High 200 - 499 mg/dL Very High > or = 500 mg/dL Performed By: #### L 100.0100, L506.1000, L500.4050, L500.4100, L501.9910 #### [facility] Laboratory [address] [place], [address] PSA,Total - Annual Screenon 09-09-2024 PSA,TOT SCREEN 0.74 ng/mL Normal 0.00-4.00 [facility] Comment on above: Result Comment: This test was performed using the TPSA assay method for the [employer] chemistry system. Values obtained with different assay methods cannot be used interchangably. When changing PSA assays in the course of monitoring a patient, additional sequential testing should be carried out to confirm baseline values. Performed By: #### L 100.0100, L506.1000, L500.4050, L500.4100, L501.9910 #### [facility] Laboratory [address] [place], [address] Vitamin D,25 Hydroxyon 09-09 Vitamin D 25-OH 34.9 ng/mL Normal [facility] Comment on above: Result Comment: Hyun min D 25(OH) Status Range Deficiency <20 ng/mL (50nmol/L) Insufficiency 20 - 30 ng/mL (50 - 75 nmol/L) Sufficiency 30 - 100 ng/mL (75 - 250 nmol/L) Toxicity >100 ng/mL (>250 nmol/L) Performed By: #### L 100.0100, L506.1000, L500.4050, L500.4100, L501.9910 #### [facility] Laboratory [address] [place], [address] Foot min 3 Viewson 5 Foot min 3 Views [facility] Imaging Services [address] [place] [address] Foot min 3 Views MR#: [id number] Acct: [id number] Name: ROBERTO MONTENEGRO Rep #: [id number] : 1965 M 59 From: Manjeet Rizo MD PCP: Dr. Ryan Garrido, DO Status: REG CLI Study: Foot min 3 Views Date of Exam: 09/01/24 Exam# [id number] Ordering Dr: Alan Harrell DPYaw [id number] STUDY: X-RAY - LEFT FOOT CLINICAL: Male, 59 years old. PAIN / ULCER TECHNIQUE: 3 views of the left foot. COMPARISON: None. FINDINGS: Normal talus, calcaneus, and tarsal bones. Normal visualized subtalar, talonavicular, calcaneocuboid, tarsal and tarsometatarsal articulations. There is an anchor in the second metatarsal head. Normal third through fifth metatarsi. There is metallic fusion hardware with plate and screws across the first MTP joint. There is mature osseous fusion across the first MTP joint. There is a bipartite fibular hallux sesamoid. 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 Normal second through fifth metatarsophalangeal joints. Normal interphalangeal joints and phalanges of the lesser toes. The soft tissue structures are unremarkable. RAD/Foot min 3 Views IMPRESSION: Metallic fusion hardware with plate and screws across the first MTP joint. Mature osseous fusion across the first MTP joint. 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 Electronically Signed: Manjeet Rizo MD at 14:36 EST Reading Location ID and State: [facility] / [place] , Service support , CC: KAYLEE Harrell; Dr. Ryan Garrido, DO Instantizer Operator: Signed Normal [facility] Absolute lymphocyte countOrd ered By: Ryan Garrido on 08-30-2023 Lymphocytes Auto (Unsp spec) [#/Vol] 2.37 10*3/uL 0.83-4.51 [facility] Basophil percentageOrdered B y: Ryan Garrido on 08-30-2023 Basophils/100 WBC (Bld) 0.8 % 0-1 [facility] Bilirubin [Mass/Vol] 0.60 mg/dL 0.20-1.00 [facility] Comment on above: For patients on eltr ombopag therapy, use of Dimension Preston TBIL is not recommended. Chloride [Moles/Vol] 108 mmol/L 98-107 [facility] Cholesterol [Mass/Vol] 199 mg/dL <200 [facility] Comment on above: <200 mg/dL Desirable 200-240 mg/dL Borderline >240 mg/dL High Risk Eosinophils/100 WBC (Bld) 3.4 % 0-5 [facility] Glucose [Mass/Vol] 107 mg/dL 74-106 [facility] Comment on above: Fasting Glucose resu lt from 100 to 125 mg/dL suggests IMPAIRED HOMEOSTASIS per A.D.A. criteria. Neutrophils (Bld) [#/Vol] 4.0 10*3/uL 2.0-7.7 [facility] Neutrophils/100 WBC (Bld) 53.6 % 47-70 [facility] Potassium [Moles/Vol] 4.0 mmol/L 3.5-5.1 [facility] Protein [Mass/Vol] 7.1 g/dL 6.4-8.2 [facility] Sodium [Moles/Vol] 141 mmol/L 136-145 [facility] Triglyceride [Mass/Vol] 179 mg/dL <199 [facility] Comment on above: The drugs N-Acetylcy steine and Metamizole may falsely depress this assay.Serum Triglycerides Reference Interval Normal <150 mg/dL Borderline high 150 - 199 mg/dL High 200 - 499 mg/dL Very High > or = 500 mg/dL WBC (Bld) [#/Vol] 7.4 10*3/uL 4.4-11.0 [facility] Blood erythrocytes count (nu mber/volume)Ordered By: Ryan Garrido on 08-30-2023 RBC (Bld) [#/Vol] 5.13 10*6/uL 4.6-6.2 [facility] Blood hemoglobin measurement (mass/volume)Ordered By: Ryan Garrido on 08-30-2023 Hemoglobin (Bld) [Mass/Vol] 15.5 g/dL 13.0-16.5 [facility] Blood lymphocytes/100 leukoc ytesOrdered By: Ryan Garrido on 08-30-2023 Lymphocytes/100 WBC (Bld) 32.0 % 19-41 [facility] Blood monocytes/100 leukocyt esOrdered By: Ryan Garrido on 08-30-2023 Monocytes/100 WBC (Bld) 10.1 % 0-10 [facility] Blood platelet mean volumeOr dered By: Ryan Garrido on 08-30-2023 Platelet mean volume (Bld) [Entitic vol] 9.0 fL 6.2-12.0 [facility] Determination of erythrocyte mean corpuscular volume (MCV)Ordered By: Ryan Garrido on 08-30-2023 MCV (RBC) [Entitic vol] 91.0 fL 80-94 [facility] Hematocrit Auto (Bld) [Volum e fraction]Ordered By: Ryan Garrido on 08-30-2023 Hematocrit (Bld) [Volume fraction] 46.7 % 40-54 [facility] Laboratory - Chemistry and C hemistry - challengeOrdered By: Ryan Garrido on 08-30-2023 ALP [Catalytic activity/Vol] 84 U/L 45-117 [facility] ALT [Catalytic activity/Vol] 27 U/L 16-61 [facility] CO2 [Moles/Vol] 25.0 mmol/L 21.0-32.0 [facility] Globulin (S) [Mass/Vol] 3.5 g/dL 2.2-4.2 [facility] Urea nitrogen/Creatinine [Mass ratio] 24.8 mg/mg 10-20 [facility] Laboratory - Hematology and Cell countsOrdered By: Ryan Garrido on 08-30-2023 Erythrocyte distribution width (RBC) [Entitic vol] 42.7 fL 35.1-43.9 [facility] Erythrocyte distribution width (RBC) [Ratio] 12.8 % 11.6-14.6 [facility] Immature granulocytes/100 WBC (Bld) 0.100 % 0.0-0.9 [facility] Comment on above: IG% - Immature Granu locytes (promyelocytes, myelocytes and metamyelocytes) > 1% indicates that a LEFT SHIFT is Present. MCH (RBC) [Entitic mass] 30.2 pg 27.0-32.0 [facility] Nucleated RBC/100 WBC (Bld) [Ratio] 0 % 0-5 [facility] MCHC Auto (RBC) [Mass/Vol]Or dered By: Ryan Garrido on 08-30-2023 MCHC (RBC) [Mass/Vol] 33.2 g/dL 32-36 [facility] No Panel InformationOrdered By: Ryan Garrido on 08-30-2023 Estimated Creatinine Clearance Calc 88.89 ml/min [facility] Estimated GFR (MDRD) Amer 102 mL/min >60 [facility] Comment on above: GFR Calc Estimated GFR (MDRD) Non-Af Amer 84 mL/min >60 [facility] Comment on above: Non- GFR Calc Prostate Specific Antigen Screen 0.71 ng/mL 0.00-4.00 [facility] Comment on above: This test was perfor med using the TPSA assay method for the[employer] chemistry system. Values obtained with differentassay methods cannot be used interchangably.When changing PSA assays in the course of monitoring apatient, additional sequential testing should be carriedout to confirm baseline values. Vitamin D 25-Hydroxy 42.5 ng/mL [facility] Comment on above: Vitamin D 25(OH) Sta tus Range Deficiency <20 ng/mL (50nmol/L) Insufficiency 20 - 30 ng/mL (50 - 75 nmol/L) Sufficiency 30 - 100 ng/mL (75 - 250 nmol/L) Toxicity >100 ng/mL (>250 nmol/L) Platelets bldOrdered By: Georgina Garrido on 08-30-2023 Platelets (Bld) [#/Vol] 247 10*3/uL 150-450 [facility] Serum or plasma albumin yudith urement (mass/volume)Ordered By: Ryan Garrido on 08-30-2023 Albumin [Mass/Vol] 3.6 g/dL 3.2-5.0 [facility] Serum or plasma albumin/glob ulin mass ratioOrdered By: Ryan Garrido on 08-30-2023 Albumin/Globulin [Mass ratio] 1.0 {ratio} 0.9-2.4 [facility] Serum or plasma calcium yudith urement (mass/volume)Ordered By: Ryan Garrido on 08-30-2023 Calcium [Mass/Vol] 9.0 mg/dL 8.5-10.1 [facility] Serum or plasma cholesterol in HDL measurement (mass/volume)Ordered By: Ryan Garrido on 08-30-2023 Cholesterol in HDL [Mass/Vol] 37 mg/dL >40 [facility] Comment on above: The drugs N-Acetylcy steine and Metamizole may falsely depress this assay. Reference Range HDL <40 mg/dL Low HDL Cholesterol HDL >or= 60 mg/dL High HDL Cholesterol Serum or plasma cholesterol in VLDL measurement (mass/volume)Ordered By: Ryan Garrido on 08-30-2023 Cholesterol in VLDL [Mass/Vol] 36 mg/dL 5-40 [facility] Serum or plasma creatinine m easurement (mass/volume)Ordered By: Ryan Garrido on 08-30-2023 Creatinine [Mass/Vol] 0.97 mg/dL 0.70-1.30 [facility] Comment on above: The validity of the calculated GFR & GFRAA in patients over 70 years has not been determined. Clinical correlation is essential. Serum or plasma low density lipoprotein (LDL) cholesterol measurement (mass/volume)Ordered By: Ryan Garrido on 08-30-2023 Cholesterol in LDL [Mass/Vol] 126 mg/dL 0-130 [facility] Serum or plasma urea nitroge n measurement (mass/volume)Ordered By: Ryan Garrido on 08-30-2023 Urea nitrogen [Mass/Vol] 24 mg/dL 7-18 [facility] Thin prep Papanicolaou smear with manual screeningOrdered By: Ryan Garrido on 08-30-2023 Thin prep Papanicolaou smear with manual screening 12 U/L 15-37 [facility] Thin prep Papanicolaou smear with manual screening 8 5-15 [facility] Absolute lymphocyte countOrd ered By: Dr. Garrido on 08-22-2022 Lymphocytes Auto (Unsp spec) [#/Vol] 1.95 10*3/uL 0.83-4.51 [facility] Basophil percentageOrdered B y: Dr. Garrido on 08-22-2022 Basophils/100 WBC (Bld) 0.5 % 0-1 [facility] Bilirubin [Mass/Vol] 0.60 mg/dL 0.20-1.00 [facility] Comment on above: For patients on eltr ombopag therapy, use of Dimension [place] TBIL is not recommended. Chloride [Moles/Vol] 106 mmol/L 98-107 [facility] Cholesterol [Mass/Vol] 226 mg/dL <200 [facility] Comment on above: <200 mg/dL Desirable 200-240 mg/dL Borderline >240 mg/dL High Risk Eosinophils/100 WBC (Bld) 3.0 % 0-5 [facility] Glucose [Mass/Vol] 106 mg/dL 74-106 [facility] Comment on above: Fasting Glucose resu lt from 100 to 125 mg/dL suggests IMPAIRED HOMEOSTASIS per A.D.A. criteria. Neutrophils (Bld) [#/Vol] 4.7 10*3/uL 2.0-7.7 [facility] Neutrophils/100 WBC (Bld) 62.1 % 47-70 [facility] Potassium [Moles/Vol] 4.1 mmol/L 3.5-5.1 [facility] Protein [Mass/Vol] 6.9 g/dL 6.4-8.2 [facility] Sodium [Moles/Vol] 139 mmol/L 136-145 [facility] Triglyceride [Mass/Vol] 162 mg/dL <199 [facility] Comment on above: The drugs N-Acetylcy steine and Metamizole may falsely depress this assay.Serum Triglycerides Reference Interval Normal <150 mg/dL Borderline high 150 - 199 mg/dL High 200 - 499 mg/dL Very High > or = 500 mg/dL WBC (Bld) [#/Vol] 7.6 10*3/uL 4.4-11.0 [facility] Blood erythrocytes count (nu mber/volume)Ordered By: Dr. Garrido on 08-22-2022 RBC (Bld) [#/Vol] 5.11 10*6/uL 4.6-6.2 [facility] Blood hemoglobin measurement (mass/volume)Ordered By: Dr. Garrido on 08-22-2022 Hemoglobin (Bld) [Mass/Vol] 15.6 g/dL 13.0-16.5 [facility] Blood lymphocytes/100 leukoc ytesOrdered By: Dr. Garrido on 08-22-2022 Lymphocytes/100 WBC (Bld) 25.8 % 19-41 [facility] Blood monocytes/100 leukocyt esOrdered By: Dr. Garrido on 08-22-2022 Monocytes/100 WBC (Bld) 8.2 % 0-10 [facility] Blood platelet mean volumeOr dered By: Dr. Garrido on 08-22-2022 Platelet mean volume (Bld) [Entitic vol] 9.0 fL 6.2-12.0 [facility] Determination of erythrocyte mean corpuscular volume (MCV)Ordered By: Dr. Garrido on 08-22-2022 MCV (RBC) [Entitic vol] 92.6 fL 80-94 [facility] Hematocrit Auto (Bld) [Volum e fraction]Ordered By: Dr. Garrido on 08-22-2022 Hematocrit (Bld) [Volume fraction] 47.3 % 40-54 [facility] Laboratory - Chemistry and C hemistry - challengeOrdered By: Dr. Garrido on 08-22-2022 ALP [Catalytic activity/Vol] 85 U/L 45-117 [facility] ALT [Catalytic activity/Vol] 30 U/L 16-61 [facility] CO2 [Moles/Vol] 24.0 mmol/L 21.0-32.0 [facility] Globulin (S) [Mass/Vol] 3.2 g/dL 2.2-4.2 [facility] Urea nitrogen/Creatinine [Mass ratio] 23.3 mg/mg 10-20 [facility] Laboratory - Hematology and Cell countsOrdered By: Dr. Garrido on 08-22-2022 Erythrocyte distribution width (RBC) [Entitic vol] 44.1 fL 35.1-43.9 [facility] Erythrocyte distribution width (RBC) [Ratio] 13.0 % 11.6-14.6 [facility] Immature granulocytes/100 WBC (Bld) 0.400 % 0.0-0.9 [facility] Comment on above: IG% - Immature Granu locytes (promyelocytes, myelocytes and metamyelocytes) > 1% indicates that a LEFT SHIFT is Present. MCH (RBC) [Entitic mass] 30.5 pg 27.0-32.0 [facility] Nucleated RBC/100 WBC (Bld) [Ratio] 0 % 0-5 [facility] MCHC Auto (RBC) [Mass/Vol]Or dered By: Dr. Garrido on 08-22-2022 MCHC (RBC) [Mass/Vol] 33.0 g/dL 32-36 [facility] No Panel InformationOrdered By: Dr. Garrido on 08-22-2022 Estimated GFR (MDRD) Amer 100 mL/min >60 [facility] Comment on above: GFR Calc Estimated GFR (MDRD) Non-Af Amer 83 mL/min >60 [facility] Comment on above: Non- GFR Calc Prostate Specific Antigen Screen 0.64 ng/mL 0.00-4.00 [facility] Comment on above: This test was perfor med using the TPSA assay method for the[employer] chemistry system. Values obtained with differentassay methods cannot be used interchangably.When changing PSA assays in the course of monitoring apatient, additional sequential testing should be carriedout to confirm baseline values. Platelets bldOrdered By: Dr. Garrido on 08-22-2022 Platelets (Bld) [#/Vol] 274 10*3/uL 150-450 [facility] Serum or plasma albumin yudith urement (mass/volume)Ordered By: Dr. Garrido on 08-22-2022 Albumin [Mass/Vol] 3.7 g/dL 3.2-5.0 [facility] Serum or plasma albumin/glob ulin mass ratioOrdered By: Dr. Garrido on 08-22-2022 Albumin/Globulin [Mass ratio] 1.2 {ratio} 0.9-2.4 [facility] Serum or plasma calcium yudith urement (mass/volume)Ordered By: Dr. Garrido on 08-22-2022 Calcium [Mass/Vol] 8.8 mg/dL 8.5-10.1 [facility] Serum or plasma cholesterol in HDL measurement (mass/volume)Ordered By: Dr. Garrido on 08-22-2022 Cholesterol in HDL [Mass/Vol] 43 mg/dL >40 [facility] Comment on above: The drugs N-Acetylcy steine and Metamizole may falsely depress this assay. Reference Range HDL <40 mg/dL Low HDL Cholesterol HDL >or= 60 mg/dL High HDL Cholesterol Serum or plasma cholesterol in VLDL measurement (mass/volume)Ordered By: Dr. Garrido on 08-22-2022 Cholesterol in VLDL [Mass/Vol] 32 mg/dL 5-40 [facility] Serum or plasma creatinine m easurement (mass/volume)Ordered By: Dr. Garrido on 08-22-2022 Creatinine [Mass/Vol] 0.99 mg/dL 0.70-1.30 [facility] Comment on above: The validity of the calculated GFR & GFRAA in patients over 70 years has not been determined. Clinical correlation is essential. Serum or plasma low density lipoprotein (LDL) cholesterol measurement (mass/volume)Ordered By: Dr. Garrido on 08-22-2022 Cholesterol in LDL [Mass/Vol] 151 mg/dL 0-130 [facility] Serum or plasma urea nitroge n measurement (mass/volume)Ordered By: Dr. Garrido on 08-22-2022 Urea nitrogen [Mass/Vol] 23 mg/dL 7-18 [facility] Thin prep Papanicolaou smear with manual screeningOrdered By: Dr. Garrido on 08-22-2022 Thin prep Papanicolaou smear with manual screening 11 U/L 15-37 [facility] Thin prep Papanicolaou smear with manual screening 9 5-15 [facility] Whole blood hemoglobin A1c/t otal hemoglobin ratio (mass fraction)Ordered By: Dr. Garrido on 08-22-2022 HbA1c (Bld) [Mass fraction] 5.3 % 3.8-5.6 [facility] Comment on above: Normal < 5.7 % Predi abetic 5.7 - 6.4 % Diabetic >or= 6.5 % Please note range changes. [facility] 08-25-2019 [facility] HNO ID: [id number] Author: Alan (RtAnibal Mike Service: ? Author Type: Theatrical Scenic Designer Type: [facility] Filed: 08/25/2019 5:45 PM Note Text: Radiology Service Progress Note PATIENT NAME: Roberto Montenegro DATE OF SERVICE: August 25, 2019 TIME: 5:44 PM PATIENT IDENTITY VERIFICATION COMPLETED USING TWO (2) IDENTIFIERS: Name and Date of confirmed by identification band. PATIENT GENDER DATA: Male PATIENT RELEVANT IMPLANT DATA REVIEWED: Not Applicable RADIOLOGY DEPARTMENT: General X-ray: Exam(s) Completed: Lower Extremity X-Ray(s): Foot, Left: PERIPHERAL IV DATA: Not applicable SIGNED BY: RT Eliseo August 25, 2019 5:[address] [facility] ANES Roslyn 08-25-2019 ANES POST HNO ID: [id number] Author: Shania Chow Service: Anesthesiology Author Type: Anesthesiologist Type: Anesthesia PostOp Filed: 08/25/2019 8:14 PM Note Text: POST ANESTHESIA EVALUATION NOTE SERVICE DATE: 08/25/2019 SERVICE TIME: 8:14 PM : 1965 Vitals: 08/25/19 0850 08/25/19 17008/25/191814 Temp: 36.6 ?C (97.9 ?F) 37 ?C (98.6 ?F) 37.1 ?C (98.8 ?F) 08/25/19 17308/25/19 17408/25/19 1800 08/25/19 181 BP: 142/97 149/101 146/82 148/84 08/25/19 17308/25/19 17408/25/19 1800 08/25/19 181 Pulse: 92 87 88 99 08/25/19172908/25/19 17408/25/19 1800 08/25/19 181 Resp: 20 14 19 19 08/25/19172908/25/19174408/25/19179908/25/191814 SpO2: 94% 95% 90% 93% Validated Vital Signs: Yes POST ANES STATUS: No apparent anesthetic complications. The patient is appropriately hydrated with stable respiratory and cardiovascular status. Patient has safe and adequate airway control. The patient has appropriate pain relief and no significant post operative nausea or vomiting. The patient has achieved baseline mental status. Intra-Operative Events: No Significant Anesthesia Events Further assessment by Anesthesia Service: None Other Remarks: SIGNATURE: Shania Chow MD PATIENT NAME: Roberto Montenegro DATE: August 25, 2019 TIME: 8:14 PM [phone] HNO [facility]: [id number] Author: Shania Chow Service: Anesthesiology Author Type: Anesthesiologist Type: Anesthesia PreOp Filed: 08/25/2019 9:35 AM Note Text: ANESTHESIOLOGY DAY OF SURGERY NOTE SERVICE DATE: 08/25/2019 SERVICE TIME: 9:33 AM : 1965 Procedure(s) (LRB): ARTHRODESIS GREAT TOE METATARSOPHALANGEAL JOINT (Left) RECONSTRUCTION TOE HAMMER (Left) Surgeon(s): Jung Iniguez Estimated body mass index is 36.89 kg/m? as calculated from the following: Height as of this encounter: 182.9 cm (6'). Weight as of this encounter: 123.4 kg (272 lb). Most recent hematocrit and potassium results: No results found for this basename: HCT,HEMATOCRIT,K,POTASSI UM ANES DOS/PREOP NOTE: Vitals: 08/25/19 0850 BP: 145/85 Pulse: 71 Resp: 16 Temp: 36.6 ?C (97.9 ?F) TempSrc: Temporal Artery SpO2: 94% Weight: 123.4 kg (272 lb) Height: 182.9 cm (6') ACTIVE PROBLEM LIST Dysmetabolic Syndrome X Dyslipidemia (High Ldl; Low Hdl) Skin Cancer Soto's Disease Man (Obstructive Sleep Apnea) Urinary Frequency Class 2 Obesity Due to Excess Calories Without Serious Comorbidity With Body Mass Index (Bmi) of 36.0 to 36.9 in Adult Pre-Operative Examination Acquired Hallux Valgus of Left Foot PAST MEDICAL HISTORY Diagnosis Date - Dysmetabolic syndrome X 04/01/2007 - MAN (obstructive sleep apnea) 09/21/2016 PAST SURGICAL HISTORY Procedure Laterality Date - COLONS W/REM POLYP HT BX 08/10/2016 - INCISE FINGER TENDON SHEATH 07-28-13 LEFT 5TH DIGIT - INT REPAIR SCALP,ARACELY,TRUNK 2.6-7.5CM 10-06-13 - MAL LESION TRUNK,ARM,LEG 2.1-3.0 CM 10-06-13 - PAST SURGICAL HISTORY OF age 13 spinal fusion L5 area - REVISE MEDIAN N/CARPAL TUNNEL SURG 07-28-13 LEFT FAMILY HISTORY Problem Relation Age of Onset - other (leukemia) Mother - Coronary Artery Disease Father - Hypertension Father - Lipids Father Social History: Social History Tobacco Use - Smoking status: Never Smoker - Smokeless tobacco: Never Used Substance Use Topics - Alcohol use: No - Drug use: No No current facility-administered medications on file prior to encounter. Current Outpatient Medications on File Prior to Encounter Medication Sig - COMPOUNDED PRESCRIPTION Lab draw: Lipids, BMP, HgA1C Diagnosis:(Z00.00) Routine medical exam;(E88.81) Dysmetabolic syndrome X; (E78.4) Dyslipidemia (high LDL; low HDL); (R73.01) Elevated fasting glucose Current Facility-Administered Medications Medication Dose Route Frequency Provider Last Rate Last Dose - lidocaine 10 mg/mL (1 %) 1-2 mg injection (XYLOCAINE) 0.1-0.2 mL INTRADERMAL PRN Ketan (Res) Narra - lactated ringers infusion 5-30 mL/hr INTRAVENOUS CONTINUOUS Ketan (Res) Narra - ceFAZolin 2 g in D5W 100 mL (ANCEF) 2 g INTRAVENOUS Pre-Op Once Ketan (Res) Narra Allergies: ALLERGIES No Known Allergies DOS EXAM: Adequate NPO Status: Yes Anesthetic Risks, Benefits, Alternatives, Personnel and Consent Discussed: Yes Patient agrees to proceed: Yes Previous Anesthesia: No history of adverse event , has only had sedation for colonoscopy and carpal tunnel . No GA before and no known problems with anesthesia in the family Airway Assessment: MP 2; Neck ROM: Full ROM without neurologic symptoms; Airway Evaluation: Short Neck and Thick neck Symptoms of Sleep Apnea: MAN (+) - not using CPAP Dentition: Teeth intact Additional Physical Exam: Lungs: Patient health status unchanged since recent history and physical. See history and physical for exam findings. Cardiac: Patient health status unchanged since recent history and physical. See history and physical for exam findings. Additional Pertinent Findings: N/A Blood Products: Not anticipated for this procedure Anesthetic Plan: General Anesthetic Monitoring: Standard ASA Monitors Pain Management Plan: Parenteral or Oral ASA Class: 3 Other Medical Problems: None Chronic Beta Yovani medication administered within 24 hours: N/A I have interviewed and examined the patient. I have reviewed the medical record and/or the pre-anesthesia evaluation, pertinent labs, and test results. Significant changes in the patient's condition since the History and Physical, not otherwise documented in primary service progress notes: No This contains updated information obtained within 48 hours of Surgery/Procedure. SIGNATURE: Shania Chow MD PATIENT NAME: Roberto Montenegro DATE: August 25, 2019 TIME: 9:33 AM CSN: [id number] [facility] BRIEF OP NOTon 08-25-2019 BRIEF OP NOT HNO ID: [id number] Author: Jung Iniguez Service: Podiatry Author Type: Physician Type: Brief Op Note Filed: 08/25/2019 4:58 PM Note Text: BRIEF OP NOTE LOG ID: [id number] Surgery/Procedure Date: 08/25/2019 Incision/Procedure Start Time: 11:10 AM Incision Close/Procedure End Time: 4:38 PM Surgeon(s)/Proceduralist (s) and Regulated Program Manager(s): Surgeon(s) and Role: * Jung Iniguez - Primary * Ketan (Res) Narra - Resident - Assisting Procedure(s): left 1st mtpj fusion Left 2nd pipj fusion Left 2nd extensor tendon lengthening Left 2nd marija osteotomy Left 2nd flexor tendon transfer Anesthesia: General Findings: complete attenuation of left 2nd plantar plate with no ability to repair. Estimated Blood Loss: 5 mls Specimens: None Complications: None Pre-Op/Pre-Procedure Diagnosis: hallux valgus left foot. h Hammertoe left foot . Plantar plate tear of left 2nd mtpj Post-Op/Post-Procedure Diagnosis: Acquired hallux valgus of left foot [M20.12], Hammertoe of left foot [M20.42], Hallux valgus, left [M20.12] SIGNATURE: Jung Iniguez DPM PATIENT NAME: Roberto Montenegro DATE: August 25, 2019 TIME: 4:57 PM PAGER/CONTACT #: [facility] HISTORY PHYSICALon HISTORY PHYSICAL HNO ID: [id number] Author: Jung Iniguez Service: Podiatry Author Type: Physician Type: HANDP Filed: 08/27/2019 8:50 PM Note Text: HISTORY AND PHYSICAL EXAMINATION SERVICE DATE: 08/24/2019 PRIMARY CARE PHYSICIAN: Ryan Garrido DO Subjective CHIEF COMPLAINT: Left 2nd toe pain HPI: This is a 54 year old male who presents with painful left 2nd toe and left hallux valgus deformity. Patient has painful first and 2nd toe of left foot for long duration. He has pain with rom of left 1st mtpj and pain to plantar aspect of left 2nd metatarsal head. He has tried wider shoes and inserts but still has pain. He presented to my clinic seeking surgical correction of his painful bunion and hammertoe deformity. FUNCTIONAL STATUS: Independent PAST MEDICAL HISTORY Diagnosis Date - Dysmetabolic syndrome X 04/01/2007 - MAN (obstructive sleep apnea) 09/21/2016 PAST SURGICAL HISTORY Procedure Laterality Date - COLONS W/REM POLYP HT BX 08/10/2016 - INCISE FINGER TENDON SHEATH 07-28-13 LEFT 5TH DIGIT - INT REPAIR SCALP,ARACELY,TRUNK 2.6-7.5CM 10-06-13 - MAL LESION TRUNK,ARM,LEG 2.1-3.0 CM 10-06-13 - PAST SURGICAL HISTORY OF age 13 spinal fusion L5 area - REVISE MEDIAN N/CARPAL TUNNEL SURG 07-28-13 LEFT FAMILY HISTORY Problem Relation Age of Onset - other (leukemia) Mother - Coronary Artery Disease Father - Hypertension Father - Lipids Father Social History Tobacco Use - Smoking status: Never Smoker - Smokeless tobacco: Never Used Substance Use Topics - Alcohol use: No - Drug use: No No medications prior to admission. ALLERGIES No Known Allergies COMPLETE REVIEW OF SYSTEMS: MUSCULOSKELETAL: joint pain or swelling Objective PHYSICAL EXAM: Physical Exam Performed: Patient is alert and orienated x 3 Patient does not appear in any distress Pulmonary: no wheezing noted Cardiac:rrr M/s: large bunion of left foot with medially deviated cross over 2nd toe. There is painful rom of left 1st mtpj. There is increased laxity of left 2nd mtpj There were no vitals taken for this visit. DATA: Diagnostic tests reviewed for today's visit: Most recent imaging Assessment/Plan Hallux valgus: patient has tried conservative care. He has arthritic changes on first mtpj confirmed with mri and xray. He would like to pursue surgery. Discussed fusion of left 1st mtpj. All r/b/a discussed. Patient consents to procedure. Hammertoe left 2nd toe. Discussed conservative vs surgical options. Surgical options including amputation was discussed. Patient fully understands that this deformity has been deviated for long duration and the overall function and correction may still be less than optimal following surgery. If this fails to correct, amputation could be possible. Patient consents for hammertoe correction via marija osteotomy, extensor tendon lengthening, plantar plate repair, pipj fusion and possible flexor tendon transfer. Medication and Non-Pharmacologic VTE Prophylaxis/Anticoagulan ts SIGNATURE: Jung Iniguez DPM PATIENT NAME: Roberto Montenegro DATE: August 24, 2019 TIME: 10:08 PM PAGER/CONTACT #: [phone] [facility] NURSING PROGon 08-25-2019 NURSING PROG HNO ID: [id number] Author: Kesha (Abhijeet) ABHIJEET [facility] Service: ? Author Type: Registered Nurse Type: Nursing Progress Note Filed: 08/25/2019 8:58 AM Note Text: PRE OP LEARNING ASSESSMENT PROCEDURE/SURGERY: lt foot /toes surgery READINESS TO LEARN COGNITIVE ABILITY: Alert and oriented MOTIVATION TO LEARN: Interested FAMILY SUPPORT: High - Very involved in pt care PATIENT LEARNS BEST BY: Individual Instruction Verbal Instruction Demonstration FACTORS AFFECTING LEARNING: None PHYSICAL LIMITATIONS AFFECTING LEARNING: None Electronically Signed By: Lyndsey Srikanth, RN, BSN In Department: [facility] SURG[facility] OPERATIVE NOon 08-25-2019 OPERATIVE NO HNO ID: [id number] Author: Jung Iniguez Service: Podiatry Author Type: Physician Type: Operative Report Filed: 08/27/2019 8:42 PM Note Text: OPERATIVE/PROCEDURE REPORT LOG ID: [id number] SURGERY/PROCEDURE DATE: 08/25/2019 INCISION/PROCEDURE START TIME: 11:10 AM INCISION CLOSE/PROCEDURE END TIME: 4:38 PM SURGEON(S)/PROCEDURALIST (S) AND PRESS HAND SUPERVISOR(S): Surgeon(s) and Role: * Jung Iniguez - Primary * Ketan (Res) Peter - Resident - Assisting Nurse Practitioner: Aria Rodriguez SURGERY/PROCEDURE(S): 1. Left 1st mtpj fusion. 2. Left 2nd pipj fusion 3. Left extensor tendon lengthening. 4. Left 2nd metatarsal osteotomy. 5. Inspection of left 2nd plantar plate. 6. Flexor digitorum longus transfer ANESTHESIA: General SURGERY/PROCEDURE DETAILS: Patient is a pleasant 54 year old male who complains of pain to the ball of his left 2nd metatarsal head as well as medial aspect of left 1st metatarsal. Pain is more severe when he has been active. He has tried wider shoes and padding. He has recently presented to my clinic for surgical treatment of painful bunion and left 2nd hammertoe deformity. On clinical exam, patient has large bunion deformity of left 1st metatarsal. In addition to the bunion, he has medially deviated 2nd toe that is crossing over the great toe. Clinical exam demonstrates pain of the left 2nd toe and plantar 2nd metatarsal head. He has decreased rom of left 1st mtpj. xrays of left foot show IM 1-2 ~20 degrees. There is cystic appearance of left 2nd metatarsal with hammertoe. MRI was performed and shows plantar plate tear. I discussed all clinical and radiographic and mr findings. We discussed surgical options. Options for surgery include but not limited to isolated 2nd toe amputation vs attempted reconstruction of left foot. Surgical reconstruction of his toe deformity includes left 1st mtpj fusion, left 2nd metatarsal osteotomy, left 2nd extensor tendon lenthening, left 2nd pipj fusion, repair of plantar plate vs flexor tendon transfer. I discussed all risks of surgery not limited to infection, pain, swelling, bleeding, slow wound healing, wound dehiscence, delayed union, malunion, nonunion, nonfunctional 2nd toe, inability to correct 2nd toe, need for future amputation. Patient clearly informed that the 2nd toe deformity does have significant deformity and that complete presybeterian of normal position and function may be difficult. He understands this. Should the 2nd toe not be restorable, he may consider amputation in future. Patient wishes to try to correct toe deformity. He consents to procedure. He understands he will need to be nwb. I discussed risk of dvt. I recommended dvt prophyalxis with lovenox. Patient wishes to try aspirin. Patient was transferred from pre-op holding area to operating room and placed on operating room table in supine position. He was placed under general anesthesia and local field block to left foot was performed. The left lower extremity was prepped and draped in usual aseptic techniue. A tourniquet that was appiled prior to prepping was inflated to 250 mm hg. Attention was directed to left foot. A dorsal medial incision was performed along the 1st mtpj. Careful dissection was performed thru subcutaneous tissue where all neurovascular structures were identified and retracted. A linear capsular incision was performed exposing the first mtpj. Inspection of the first mtpj showed significant void in carilage of the first metatarsal head as well as cystic changes along the plantar medial aspect of first metatarsal head. The cartilage of the first metatarsal and base of proximal phalanx was then resected with rongeur and reamer system. The medial eminence of left 1st metatarsal was resected with rongeur and sagittal saw. Next, subchondral drilling was performed followed by application of demineralized bone matrix. The joint was positioned for fusion with guide wire placed distal medial to proximal later. The toe was positioned near neutral with positioning in the sagittal plane just off the assimulated weight bearing surface. The toe was then fused with 3.5 mm headless screw and dorsal locking plate. The toruniquet was deflated and hemostasis was achieved. The capsule was repaired with 2-0 vicryl. Subcutaneous tissue was repaired with 3-0 vicryl. Skin was closed with 3-0 nylon. Attention was then directed to the left 2nd toe. The tourniquet was inflated. The left 2nd toe was dorsally deviated and medially deviated. An incision was performed within the 2nd interspace extending to the 2nd pipj. Dissection carried within subuctuaneous tissue where all neurovascular structures were identified and retracted. Attention was directed to the left 2nd pipj. A tenotomy was performed at the level of pipj. The medial and lateral collateral ligaments was resected. I freed the extensor tendon to the level of extensor tim apparatus and the extensor tim and dorsal capsular structures was released. Attention was then directed to the left 2nd mtpj. The left 2nd toe was dorsally subluxed at metatarsal head. The left 2nd mtpj was incised with a lateral incision exposing the 2nd metatarsal head. A marija osteotomy was performed from dorsal distal to plantar proximal. The osteotomy was temporarily fixated with guide wire. A wire was placed in base of proximal phalanx and the joint was distracted. I inspected the plantar plate. The plantar plate was attenuated medially and completely torn and retracted laterally. There was no viable plantar plate present for repair. It was at this time that I determined that the plantar plate was not ammendable for repair and for this reason, a flexor tendon transfer would be necessary. A sagittal saw was used to resect the head of proximal phalanx and base of middle phalanx. I then freed the underlying flexor digitorum longus and split in two halves to allow dorsal transfer. After performing the flexor tendon transfer, I initially attempted to perform pipj fusion with 0.45 inch k-wire but I found that achieving a congrouos 2nd mtpj was difficult so I elected to place a 0.62 in kwire with the toe in slight plantarflexion past the mtpj. Irrigation was performed. The tendon was then repaired at pipj and then an extensor tendon lengthing was made. The tourniquet was deflated and hemostasis was achieved. The lateral capsule was repaired with 3-0 vicryl. Subcutaneous closure was achieved with 3-0 vicryl. Skin was closed with 3-0 nylon. Post-op injection was performed with marcaine. Post-op dressing was applied consisting of betadine soaked adaptic, 4x4 edmondazedavid and hamilton compression with well padded posterior splint. Patient was awakened and found to be in stable condition. PRE-OP/PRE-PROCEDURE DIAGNOSIS: acquired hallux valgus of left foot. Hammertoe of left foot with plantar plate tear, left 2nd toe POST-OP/POST-PROCEDURE DIAGNOSIS: Acquired hallux valgus of left foot [M20.12], Hammertoe of left foot [M20.42], Hallux valgus, left [M20.12] ESTIMATED BLOOD LOSS: 5 mls SPECIMENS: None IMPLANTABLE DEVICES: arthrex locking plate with 3.5 mm headless screw; demineralized bone matrix; 0.45 inch k-wire; arthrex twist off screw DRAINS: None COMPLICATIONS: None PARTICIPATION IN SURGERY/PROCEDURE: I/primary surgeon/proceduralist performed the procedure with assistance. SIGNATURE: Jung Iniguez DPM PATIENT NAME: Roberto Montenegro DATE: August 25, 2019 TIME: 8:30 PM PAGER/CONTACT #: [facility] PROGRESSon 08-25-2019 PROGRESS HNO ID: [id number] Author: Ketan Green Service: Podiatry Author Type: Resident Type: Progress Notes Filed: 08/25/2019 10:28 AM Note Text: -------- Attestation signed by Jung Iniguez at 08/27/2019 8:52 PM I was present and performed procedure Jung Iniguez DPM -------- PODIATRIC PRE-OPERATIVE NOTE SERVICE DATE: 08/25/2019 SERVICE TIME: 10:26 AM DIAGNOSIS: Hallux valgus, left and hammertoe contracture and plantar plate rupture of the 2nd toe PROCEDURE(S): ARTHRODESIS GREAT TOE METATARSOPHALANGEAL JOINT (Left) RECONSTRUCTION TOE HAMMER (Left) Consent on chart: Yes LABS: CBC: No results found for this basename: wbc,hb,hct,plt CMP: No results found for this basename: na,k,bun,creat,gluc COAGS: No results found for this basename: aptt,inr URINALYSIS: No results found for this basename: uket,nitrites,spgr,uprot ,leukest,uwbc,ubacteria Type AND screen: N/A Medical Clearance: Yes CXR/EKG: N/A Medications/Preop Antibiotics: Ancef ALLERGIES No Known Allergies Surgical site identified: Yes NPO: Yes IV Fluids: Yes Risks and benefits, complications, treatment options, expected outcome and rehabilitation explained, patient understands. All questions were entertained and answered. Patient wishes to proceed with above procedure(s). SIGNATURE: Ketan Green DPM PATIENT NAME: Roberto Montenegro DATE: August 25, 2019 TIME: 10:[address] [facility] PT EDon 08-25-2019 PT ED HNO ID: [id number] Author: Christine Duenas) ABHIJEET Gibson Service: Nursing Author Type: Registered Nurse Type: Patient Education Filed: 08/25/2019 7:14 PM Note Text: POST OP LEARNING RESPONSE INSTRUCTION PROVIDED TO: Patient and Spouse METHOD OF INSTRUCTION: Individual instruction Written instruction - handouts Verbal instruction PATIENT / FAMILY RESPONSE: Verbalizes understanding of: POST-OPERATIVE INSTRUCTIONS-Correct actions to take to reduce postoperative complications FOLLOW-UP PLAN: Recommend - Recommend continued instruction and follow up as directed SUPPLEMENTAL MATERIAL: None REFERRAL (RECOMMENDATION): None Electronically Signed By: Christine Gibson RN In Department: [facility] SURGERY [facility] XR FLUOROSCOPYon 08-25-2019 XR FLUOROSCOPY * * *Final Report* * * DATE OF EXAM: Aug 25 2019 4:45PM [facility] [id number] - XR FLUOROSCOPY / PROCEDURE REASON: ARTHRODESIS LEFT GREAT TOE MP JOINT FOR HALLUX VALGUS AND HAMMERTOE * * * * Physician Interpretation * * * * INDICATION: Intraoperative fluoroscopy TECHNIQUE: 4 submitted fluoroscopic spot images were reviewed Fluoroscopic Radiation Summary: Plane A, Air Kerma: 219.8 mGy Plane B, Air Kerma: 0.0 mGy Dose Area Product (DAP): 0.0 mGy*cm^2 Fluoro time: 5:35 min:sec FINDINGS/ IMPRESSION: 4 submitted fluoroscopic spot images demonstrate instrumentation/pinning of the left second digit. Fusion of the first metatarsophalangeal joint with plate and screw device is also noted. Refer to the procedure note for details regarding this procedure. Instantizer Operator: CHIRAG Transcribe Date/Time: Aug 26 2019 8:22A Dictated by : WHITNEY LINDSEY MD This examination was interpreted and the report reviewed and electronically signed by: WHITNEY LINDSEY MD on Aug 26 2019 8:31AM EST [id number] [facility] XR FOOT 3V AP/LAT/OBL LTon 1 XR FOOT 3V AP/LAT/OBL LT * * *Final Report* * * DATE OF EXAM: Aug 25 2019 5:40PM MDX [id number] - XR FOOT 3V AP/LAT/OBL LT / PROCEDURE REASON: Post-operative / post-procedure assessment, asymptomatic * * * * Physician Interpretation * * * * HISTORY: Post-operative / post-procedure assessment, asymptomatic post op TECHNIQUE: 3 portable views COMPARISON: None RESULT: K wire transfixes the phalanges of the second toe and the head of the second metatarsal. Metallic plate and screw device and a screw transfixes the first MP joint. Degenerative spurring and joint space narrowing of the first MP joint are noted. IMPRESSION: As in results Instantizer Operator: CHIRAG Transcribe Date/Time: Aug 26 2019 10:20A Dictated by : TEX HILLIARD MD This examination was interpreted and the report reviewed and electronically signed by: TEX HILLIARD MD on Aug 26 2019 10:24AM EST [id number] [facility] NURSING PROGon 08-08-2019 NURSING PROG HNO ID: [id number] Author: Kavita (Rn) ABHIJEET Rodriguez Service: ? Author Type: Registered Nurse Type: Nursing Progress Note Filed: 08/08/2019 7:46 AM Note Text: PACC Nurse Progress Note History AND Physical: PACC Visit Date: 08/06/19 Original HANDP Date: N/A ED visit Date: N/A Outside HANDP Scanned Date: N/A Labs Within Last 6 Months: N/A Imaging Within Last 12 Months: N/A Cardiac Testing: N/A BMI Percentile (PEDS): N/A Risk Assessment: N/A Anesthesia Review: N/A Narrative: N/A Pre-op Considerations: +MAN does not use CPAP, using a device, that vibrates his forehead when he snores. Chart Check: COMPLETED Kavita Rodriguez RN August 08, 2019 7:[address] 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] MAN (obstructive sleep apnea) [G47.33] Urinary frequency [R35.0] Class 2 obesity due to excess calories without serious comorbidity with body mass index (BMI) of 36.0 to 36.9 in adult [E66.09, Z68.36] Pre-operative examination [Z01.818] Acquired hallux valgus of left foot [M20.12] Allergies: No Known Allergies Date Verified:08/25/19 Lab Values No results within the last 30 days for the following basenames: K,HCT Progress Notes (): Lorna Lindsey APRN.JUAN C 08/06/2019 11:01 AM Signed HISTORY AND PHYSICAL EXAMINATION SERVICE DATE: 08/06/2019 SERVICE TIME: 10:08 AM PRIMARY CARE PHYSICIAN: Ryan Garrido DO REASON FOR VISIT: Roberto Montenegro is a 54 year old male who is scheduled for L 1st MTPJ fusion and L 2nd toe correction at the request of Dr. Jung Iniguez for consultation. My final recommendation will be communicated back to the requesting physician by way of shared medical record or letter. The patient has the following: ACTIVE PROBLEM LIST Dysmetabolic Syndrome X Dyslipidemia (High Ldl; Low Hdl) Skin Cancer Soto's Disease Man (Obstructive Sleep Apnea) Urinary Frequency Class 2 Obesity Due to Excess Calories Without Serious Comorbidity With Body Mass Index (Bmi) of 36.0 to 36.9 in Adult Pre-Operative Examination Acquired Hallux Valgus of Left Foot Subjective CHIEF COMPLAINT: Pre-op exam: Acquired hallux valgus of left foot HPI: Mohsen is a 54 yo male seen for PAC due to scheduled above surgery because of a painful bunion and hammertoe he would like to have corrected. He has tried wider shoes and padding but continues to have pain. Patient is now interested in surgery. PAST MEDICAL HISTORY Diagnosis Date - Dysmetabolic syndrome X 04/01/2007 - MAN (obstructive sleep apnea) 09/21/2016 PAST SURGICAL HISTORY Procedure Laterality Date - COLONS W/REM POLYP HT BX 08/10/2016 - INCISE FINGER TENDON SHEATH 07-28-13 LEFT 5TH DIGIT - INT REPAIR SCALP,ARACELY,TRUNK 2.6-7.5CM 10-06-13 - MAL LESION TRUNK,ARM,LEG 2.1-3.0 CM 10-06-13 - PAST SURGICAL HISTORY OF age 13 spinal fusion L5 area - REVISE MEDIAN N/CARPAL TUNNEL SURG 07-28-13 LEFT FAMILY HISTORY Problem Relation Age of Onset - other (leukemia) Mother - Coronary Artery Disease Father - Hypertension Father - Lipids Father SOCIAL HISTORY: Social History Tobacco Use - Smoking status: Never Smoker - Smokeless tobacco: Never Used Substance Use Topics - Alcohol use: No - Drug use: No MEDICATIONS: Prior to Admission medications as of 08/06/19 1007 Medication Sig Last Dose Taking tamsulosin ER (FLOMAX) 0.4 mg cap Take 0.4 mg by mouth once daily. Taking Yes cholecalciferol, vitamin D3, (VITAMIN D3 ORAL) Take by mouth once daily. Taking Yes COMPOUNDED PRESCRIPTION Lab draw: Lipids, BMP, HgA1C Diagnosis:(Z00.00) Routine medical exam;(E88.81) Dysmetabolic syndrome X; (E78.4) Dyslipidemia (high LDL; low HDL); (R73.01) Elevated fasting glucose No medication comments found. CURRENT ALLERGIES: ALLERGIES No Known Allergies REVIEW OF SYSTEMS: PAIN ASSESSMENT: General: No weight loss, malaise or fevers. Neuro: No history of TIA's, stroke, SCREW MACHINE OPERATOR tumor, impaired sensorium, hemiplegia, paraplegia or quadraplegia. No neurological symptoms or problems. Respiratory: No history of current cough or dyspnea, or pneumonia in the past 6 weeks. No history of respiratory/pulmonary symptoms or problems. Denies smoking, asthma, or COPD. +MAN does not use CPAP, using a device, that vibrates his forehead when he snores. Cardiovascular: No history of HTN requiring medication, no history of angina, CHF, TN, cardiac surgery or stents. Denies rest pain, gangrene or revascularization/amputa tion for PVD. No history of cardiovascular symptoms or problems. Denies chest pain or sob. Denies hx of DVT/PE. GI: No history of GI symptoms or problems. No history of esophageal varices, recent ascites, or ETOH greater than 2 drinks per day. : No history of dysuria, frequency or incontinence,, stones or chronic kidney disease +urinary frequency, on rx Endocrine: No history of diabetes. Has not taken steroids within the past 30 days. No history of endocrinological symptoms or problems. Hematology: No history of bleeding or clotting disorder. Pt is not taking anti-coagulation or platelet medications. No history of hematological symptoms or problems. Oncology: +h/o SCC perianal lesion excised by Dr. Bronson Durand Psych: No history of psychiatric symptoms or problems. Musculoskeletal: See HPI Skin: Negative for lesions, rash and itching. Objective PHYSICAL EXAM: VITALS: BP 157/84 Pulse 74 Temp (Src) 98 (Temporal Artery) Ht 6' 0 (1.83m) Wt 272 lb (123.4kg) SpO2 98% BMI 36.88 kg/(m2). General: Alert and oriented Skin: Normal color, no rash, no lesions. HEENT: EOM, pupils equal, round and reactive. Cardiovascular: Normal S1 AND S2, no rubs, murmurs or gallops. No JVD. Pulse regular. Lungs: Normal breath sounds, no wheezes or crackles. Abdomen: Soft, non-tender, no rigidity. Extremities: No deformity, no edema or tenderness, no joint swelling or clubbing. Neurological: Normal cognition and motor skills. Pulses: Carotid and radial pulses normal +2. Diagnostic tests reviewed for today's visit: Lab Value Units Date High Low HB No results within date range. HCT No results within date range. WBC No results within date range. PLT No results within date range. NA No results within date range. K No results within date range. GLUC No results within date range. BUN No results within date range. CREAT No results within date range. PTSEC No results within date range. INR No results within date range. APTT No results within date range. ALT No results within date range. AST No results within date range. TBILI No results within date range. TSH No results within date range. Lab Value Units Date High Low HCGQT No results within date range. UHCG No results within date range. HCG, BODY* No results within date range. Lab Value Units Date High Low ABORHD No results within date range. ABSCREEN No results within date range. No results found for: HBA1C Most recent labs Most recent imaging Scanned into EPIC Assessment/Plan Urinary frequency Assessment: on rx, pt denies BPH MAN (obstructive sleep apnea) Assessment: does not use CPAP, uses a device that vibrates his forehead when he snores Skin cancer Assessment: h/o SCC, perianal area excised [address] Bronson Durand Class 2 obesity due to excess calories without serious comorbidity with body mass index (BMI) of 36.0 to 36.9 in adult Assessment: Body mass index is 36.89 kg/m?. METS: Climb a flight of stairs or walk up a hill (5.50 METs) Patient denies any chest pain or undue shortness of breath with the above physical activity. ASA Class: 2 ANESTHESIA FINDINGS: Intubation History: No history of difficult intubation Significant Anesthesia Considerations: None Airway Exam: General: obese Mallampati Score is CLASS II ULBT: Class II - Lower incisors can bite the upper lip below the leonila line Neck: Normal appearance and function, Distance from hyoid to mentum during neck extension is at least 3 finger breaths Mouth: Large tongue size Dentition: Intact Airway History: No abnormal airway history STOP BANG Score: MAN does not use CPAP/BiPAP PLAN This patient is optimally prepared for surgery. CONSULTS: Patient does not require consults for optimization at this time. The Following Tests/Procedures Have Been Initiated: Labs not indicated per PACC protocol, EKG not indicated per PACC protocol Planned Anesthetic: Per anesthesia choice Instructions Given to Patient: Instructions located in the after visit summary. Patient given verbal and written preop instructions and voices comprehension and compliance. SIGNATURE: Lorna Lindsey APRN.MORTICIAN INVESTIGATOR PATIENT NAME: Roberto Montenegro DATE: August 06, 2019 TIME: 10:08 AM PAGER/CONTACT #: Kavita Rodriguez RN, RN 08/08/2019 7:46 AM Signed PACC Nurse Progress Note History AND Physical: PACC Visit Date: 08/06/19 Original HANDP Date: N/A ED visit Date: N/A Outside HANDP Scanned Date: N/A Labs Within Last 6 Months: N/A Imaging Within Last 12 Months: N/A Cardiac Testing: N/A BMI Percentile (PEDS): N/A Risk Assessment: N/A Anesthesia Review: N/A Narrative: N/A Pre-op Considerations: +MAN does not use CPAP, using a device, that vibrates his forehead when he snores. Chart Check: COMPLETED Kavita Rodriguez RN August 08, 2019 7:44 AM Jung Iniguez DPM 08/25/2019 10:31 AM Incomplete HISTORY AND PHYSICAL EXAMINATION SERVICE DATE: 08/24/2019 SERVICE TIME: PRIMARY CARE PHYSICIAN: Ryan Garrido DO Subjective CHIEF COMPLAINT: Left 2nd toe pain HPI: This is a 54 year old male who presents with painful left 2nd toe and left hallux valgus deformity. Patient has painful first and 2nd toe of left foot for long duration. He has pain with rom of left 1st mtpj and pain to plantar aspect of left 2nd metatarsal head. He has tried wider shoes and inserts but still has pain. He presented to my clinic seeking surgical correction of his painful bunion and hammertoe deformity. FUNCTIONAL STATUS: Independent PAST MEDICAL HISTORY Diagnosis Date - Dysmetabolic syndrome X 04/01/2007 - MAN (obstructive sleep apnea) 09/21/2016 PAST SURGICAL HISTORY Procedure Laterality Date - COLONS W/REM POLYP HT BX 08/10/2016 - INCISE FINGER TENDON SHEATH 07-28-13 LEFT 5TH DIGIT - INT REPAIR SCALP,ARACELY,TRUNK 2.6-7.5CM 10-06-13 - MAL LESION TRUNK,ARM,LEG 2.1-3.0 CM 10-06-13 - PAST SURGICAL HISTORY OF age 13 spinal fusion L5 area - REVISE MEDIAN N/CARPAL TUNNEL SURG 07-28-13 LEFT FAMILY HISTORY Problem Relation Age of Onset - other (leukemia) Mother - Coronary Artery Disease Father - Hypertension Father - Lipids Father Social History Tobacco Use - Smoking status: Never Smoker - Smokeless tobacco: Never Used Substance Use Topics - Alcohol use: No - Drug use: No No medications prior to admission. ALLERGIES No Known Allergies COMPLETE REVIEW OF SYSTEMS: MUSCULOSKELETAL: joint pain or swelling Objective PHYSICAL EXAM: Physical Exam Performed: Patient is alert and orienated x 3 Patient does not appear in any distress Pulmonary: no wheezing noted Cardiac:rrr M/s: large bunion of left foot with medially deviated cross over 2nd toe. There is painful rom of left 1st mtpj. There is increased laxity of left 2nd mtpj There were no vitals taken for this visit. DATA: Diagnostic tests reviewed for today's visit: Most recent imaging Assessment/Plan Hallux valgus: patient has tried conservative care. He has arthritic changes on first mtpj confirmed with mri and xray. He would like to pursue surgery. Discussed fusion of left 1st mtpj. All r/b/a discussed. Patient consents to procedure. Hammertoe left 2nd toe. Discussed conservative vs surgical options. Surgical options including amputation was discussed. Patient fully understands that this deformity has been deviated for long duration and the overall function and correction may still be less than optimal following surgery. If this fails to correct, amputation could be possible. Patient consents for hammertoe correction via marija osteotomy, extensor tendon lengthening, plantar plate repair, pipj fusion and possible flexor tendon transfer. Medication and Non-Pharmacologic VTE Prophylaxis/Anticoagulan ts VTE Prophylaxis: {IF CHANGING PROTOCOL REMEMBER TO PLACE ORDER:[id number]} SIGNATURE: Jung Iniguez DPM PATIENT NAME: Roberto Montenegro DATE: August 24, 2019 TIME: 10:08 PM PAGER/CONTACT #: Kesha Duke RN, BSN, RN 08/25/2019 8:58 AM Signed PRE OP LEARNING ASSESSMENT PROCEDURE/SURGERY: lt foot /toes surgery READINESS TO LEARN COGNITIVE ABILITY: Alert and oriented MOTIVATION TO LEARN: Interested FAMILY SUPPORT: High - Very involved in pt care PATIENT LEARNS BEST BY: Individual Instruction Verbal Instruction Demonstration FACTORS AFFECTING LEARNING: None PHYSICAL LIMITATIONS AFFECTING LEARNING: None Electronically Signed By: Kesha Duke RN, BSN In Department: [facility] SUR[facility] Shania Chow MD 08/25/2019 9:35 AM Signed ANESTHESIOLOGY DAY OF SURGERY NOTE SERVICE DATE: 08/25/2019 SERVICE TIME: 9:33 AM : 1965 Procedure(s) (LRB): ARTHRODESIS GREAT TOE METATARSOPHALANGEAL JOINT (Left) RECONSTRUCTION TOE HAMMER (Left) Surgeon(s): Jung Iniguez Estimated body mass index is 36.89 kg/m? as calculated from the following: Height as of this encounter: 182.9 cm (6'). Weight as of this encounter: 123.4 kg (272 lb). Most recent hematocrit and potassium results: No results found for this basename: HCT,HEMATOCRIT,K,POTASSI UM ANES DOS/PREOP NOTE: Vitals: 08/25/19 0850 BP: 145/85 Pulse: 71 Resp: 16 Temp: 36.6 ?C (97.9 ?F) TempSrc: Temporal Artery SpO2: 94% Weight: 123.4 kg (272 lb) Height: 182.9 cm (6') ACTIVE PROBLEM LIST Dysmetabolic Syndrome X Dyslipidemia (High Ldl; Low Hdl) Skin Cancer Soto's Disease Man (Obstructive Sleep Apnea) Urinary Frequency Class 2 Obesity Due to Excess Calories Without Serious Comorbidity With Body Mass Index (Bmi) of 36.0 to 36.9 in Adult Pre-Operative Examination Acquired Hallux Valgus of Left Foot PAST MEDICAL HISTORY Diagnosis Date - Dysmetabolic syndrome X 04/01/2007 - MAN (obstructive sleep apnea) 09/21/2016 PAST SURGICAL HISTORY Procedure Laterality Date - COLONS W/REM POLYP HT BX 08/10/2016 - INCISE FINGER TENDON SHEATH 07-28-13 LEFT 5TH DIGIT - INT REPAIR SCALP,ARACELY,TRUNK 2.6-7.5CM 10-06-13 - MAL LESION TRUNK,ARM,LEG 2.1-3.0 CM 10-06-13 - PAST SURGICAL HISTORY OF age 13 spinal fusion L5 area - REVISE MEDIAN N/CARPAL TUNNEL SURG 07-28-13 LEFT FAMILY HISTORY Problem Relation Age of Onset - other (leukemia) Mother - Coronary Artery Disease Father - Hypertension Father - Lipids Father Social History: Social History Tobacco Use - Smoking status: Never Smoker - Smokeless tobacco: Never Used Substance Use Topics - Alcohol use: No - Drug use: No No current facility-administered medications on file prior to encounter. Current Outpatient Medications on File Prior to Encounter Medication Sig - COMPOUNDED PRESCRIPTION Lab draw: Lipids, BMP, HgA1C Diagnosis:(Z00.00) Routine medical exam;(E88.81) Dysmetabolic syndrome X; (E78.4) Dyslipidemia (high LDL; low HDL); (R73.01) Elevated fasting glucose Current Facility-Administered Medications Medication Dose Route Frequency Provider Last Rate Last Dose - lidocaine 10 mg/mL (1 %) 1-2 mg injection (XYLOCAINE) 0.1-0.2 mL INTRADERMAL PRN Ketan (Res) Narra - lactated ringers infusion 5-30 mL/hr INTRAVENOUS CONTINUOUS Ketan (Res) Narra - ceFAZolin 2 g in D5W 100 mL (ANCEF) 2 g INTRAVENOUS Pre-Op Once Ketan (Res) Narra Allergies: ALLERGIES No Known Allergies DOS EXAM: Adequate NPO Status: Yes Anesthetic Risks, Benefits, Alternatives, Personnel and Consent Discussed: Yes Patient agrees to proceed: Yes Previous Anesthesia: No history of adverse event , has only had sedation for colonoscopy and carpal tunnel . No GA before and no known problems with anesthesia in the family Airway Assessment: MP 2; Neck ROM: Full ROM without neurologic symptoms; Airway Evaluation: Short Neck and Thick neck Symptoms of Sleep Apnea: MAN (+) - not using CPAP Dentition: Teeth intact Additional Physical Exam: Lungs: Patient health status unchanged since recent history and physical. See history and physical for exam findings. Cardiac: Patient health status unchanged since recent history and physical. See history and physical for exam findings. Additional Pertinent Findings: N/A Blood Products: Not anticipated for this procedure Anesthetic Plan: General Anesthetic Monitoring: Standard ASA Monitors Pain Management Plan: Parenteral or Oral ASA Class: 3 Other Medical Problems: None Chronic Beta Yovani medication administered within 24 hours: N/A I have interviewed and examined the patient. I have reviewed the medical record and/or the pre-anesthesia evaluation, pertinent labs, and test results. Significant changes in the patient's condition since the History and Physical, not otherwise documented in primary service progress notes: No This contains updated information obtained within 48 hours of Surgery/Procedure. SIGNATURE: Shania Chow MD PATIENT NAME: Roberto Montenegro DATE: August 25, 2019 TIME: 9:33 AM CSN: [id number] Ketan Green DPM 08/25/2019 10:28 AM Cosign Needed PODIATRIC PRE-OPERATIVE NOTE SERVICE DATE: 08/25/2019 SERVICE TIME: 10:26 AM DIAGNOSIS: Hallux valgus, left and hammertoe contracture and plantar plate rupture of the 2nd toe PROCEDURE(S): ARTHRODESIS GREAT TOE METATARSOPHALANGEAL JOINT (Left) RECONSTRUCTION TOE HAMMER (Left) Consent on chart: Yes LABS: CBC: No results found for this basename: wbc,hb,hct,plt CMP: No results found for this basename: na,k,bun,creat,gluc COAGS: No results found for this basename: aptt,inr URINALYSIS: No results found for this basename: uket,nitrites,spgr,uprot ,leukest,uwbc,ubacteria Type AND screen: N/A Medical Clearance: Yes CXR/EKG: N/A Medications/Preop Antibiotics: Ancef ALLERGIES No Known Allergies Surgical site identified: Yes NPO: Yes IV Fluids: Yes Risks and benefits, complications, treatment options, expected outcome and rehabilitation explained, patient understands. All questions were entertained and answered. Patient wishes to proceed with above procedure(s). SIGNATURE: Ketan Green DPM PATIENT NAME: Roberto Montenegro DATE: August 25, 2019 TIME: 10:26 AM Ketan Green DPM 08/25/2019 10:28 AM Cosign Needed HISTORY AND PHYSICAL UPDATE EVALUATION DATE: 08/25/2019 EVALUATION TIME: 10:28 AM PHYSICAL EXAM MUST BE COMPLETED ON ADMISSION The History and Physical (completed in the past 30 days) has been reviewed and the patient has been examined. The contents accurately reflect the patient's condition with the following additions or revisions since the HANDP was completed. Examination indicates no changes This HANDP can be found in the attached. SIGNATURE: Ketan Green DPM PATIENT NAME: Roberto Montenegro DATE: August 25, 2019 TIME: 10:28 AM Ketan Green DPM 08/25/2019 10:39 AM Written POST OPERATIVE INSTRUCTIONS RESTRICTIONS AFTER ANESTHESIA: - Do not drive, work with heavy equipment or sign legal documents for 24 hours - Rest at home for 24 hours following anesthesia - You may experience light-headedness, dizziness, nausea, or sleepiness after surgery. Stay in bed if you experience these symptoms - Do not stay alone. A responsible adult must be with you for 24 hours. - Do not take any alcoholic beverages or sleeping pills for the next 18 hours - You may experience muscle aches and sore throat - If you experience difficulty breathing and/or shortness of breath, seek IMMEDIATE medical attention. DRESSING: Keep surgical area clean and dry. Do NOT remove dressing. You may notice blood upon your bandage. Bleeding is expected and your bandage may become stained. You may reinforce with gauze or thom bandage. BATHING: Sponge bath only or use of a cast protector in the shower until first post op visit. ACTIVITY: Non weightbearing in a splint - After discharge from the surgery center, go directly home and limit your activities. - Keep children and pets away from your operative foot. - No heavy lifting. - Use crutches to ambulate ELEVATION: Elevate the operative site above the level of your heart for at least the next 3 days. This will help decrease pain and prevent swelling. Support the back of your knee with a pillow. ICE: Use ice pack behind left knee or at left ankle for 20 minutes on and off every hour when awake for the next 3 days. Do NOT fall asleep while using the ice pack. MEDICATION: - Some degree of discomfort is to be expected after surgery and will improve gradually as the healing process continues. Pain medication has been prescribed for you. - Recommend taking 1 pill every 6 hours as needed for pain. Can take up to 2 pills every 4 hours. Recommended taking the pain medication as scheduled for at least the first 24-72 hours following surgery. - Please take the first dose of pain medication prior to local anesthesia wearing off (the operative site may remain numb anywhere from 4-20 hours after surgery). Set an alarm to take a dose of medication overnight. - Do not drink alcohol, drive a car, operate any machinery, or work with heavy equipment while taking your prescription pain medication. - It is common for patients to experience nausea and or vomiting from pain medication. In order to help with this you should take your pain medication with food. - Your pain medication may cause constipation. If you have not had a bowel movement for 3 days or more, you may consider an [id number] stool softener such as Milk of Magnesia or Colace. - Additionally you have been prescribed to prevent blood clots. Please take as prescribed. - You may restart your at home prescriptions. DIET: You may resume your diet. Advance your diet as tolerated. Keep yourself hydrated. POST OPERATIVE INSTRUCTIONS IF YOU NOTICE: Fever of 101 degrees or over. Foul smelling or purulent (pus) drainage from operative site. Increase in drainage . Sudden onset of pain that is unrelieved with pain medication. Observe operative extremity for circulation problems: change in color, coldness, numbness, or tingling. If any symptoms occur, Call office immediately or after hours emergency number. PHONE NUMBERS: 1 [phone], during office hours, to contact Dr. Iniguez's office with any concerns, during office hours. , after office hours and on weekends. After the tone, enter your phone number and hang up. The resident physician will then return your call. IN AN EMERGENCY, IF YOU ARE UNABLE TO REACH YOUR PHYSICIAN, GO TO THE NEAREST EMERGENCY ROOM. FOLLOW UP APPOINTMENT: Future Appointments Date Time Provider Department Center 08/29/2019 10:00 AM JUNG BENITES [facility] 09/05/2019 10:30 AM JUNG BENITES [facility] 09/12/2019 10:00 AM JUNG BENITES [facility] Progress Notes ([facility]): Katrin Hannah RN 07/31/2019 4:24 PM Addendum Patient scheduled for Left 1st metatarsal phalangeal joint fusion, Left 2nd hammertoe correction with fusion, Left 2nd and 3rd? metatarsal osteotomy, Left 2nd plantar plate repair, and Left 2nd extensor tendon lengthening and tendon balancing at [facility] on 08/25/19. Patient was given Hibiclens and surgical packet at today's . Patient will call back in to schedule post op appointments. Surgical Case Request will be filed once scheduling form is completed by Dr. Iniguez. Previous Version Cierra Mcclendon RN 08/01/2019 12:40 PM Signed called to say they are faxing [place] paperwork from [facility]. She would like one week off post-operatively from 09-01-17-20 and then intermittent. Criselda Goodwin Ma 08/01/2019 1:54 PM Signed Fax received Criselda Goodwin Ma 08/05/2019 8:58 AM Signed Patient scheduled for L 1st MTPJ fusion and L 2nd hammertoe correction at [facility] on 08/25/19. Patient was contacted and Post op appointment's have been scheduled. Katrin Hannah RN 08/05/2019 10:50 AM Signed 's FMLA/STD paperwork completed. Faxed to [employer] at . Patient notified that 's forms were completed and faxed. Also informed him that there are 2 forms needs to fill out. She will either stop by office or wait until patient's first post op appointment. Forms in FMLA folder at [facility] nurses desk. Criselda Goodwin Ma 08/06/2019 1:35 PM Signed Fax received that sections are not completed. Forwarded to 's desk for completion. Criselda Goodwin Ma 08/14/2019 8:12 AM Signed Paperwork completed and faxed back to [facility] [[email or web address] Vital Signs Date Time Vital Sign Value Performing Clinician Faci lity 05-13-2025 08:08-0400 Body height 182.[address] Ryan Garrido DO Work Phone: [facility] 05-13-2025 08:08-0400 Body mass index (BMI) [Ratio] 36.6 kg/m2 Dr. Ryan Garrido DO Work Phone: [facility] 05-13-2025 08:08-0400 Body weight 122.[address] Ryan Garrido DO Work Phone: [facility] 02-09-2025 08:05-0400 Body height 182.[address] Ryan Garrido DO Work Phone: [facility] 02-09-2025 08:05-0400 Body mass index (BMI) [Ratio] 35.9 kg/m2 Dr. Ryan Garrido DO Work Phone: [facility] 02-09-2025 08:05-0400 Body weight 120.[address] Ryan Garrido DO Work Phone: [facility] 01-31-2025 10:55-0400 Body height 182.[address] Ryan Garrido DO Work Phone: [facility] 01-31-2025 10:55-0400 Body mass index (BMI) [Ratio] 36.3 kg/m2 Dr. Ryan Garrido DO Work Phone: [facility] 01-31-2025 10:55-0400 Body temperature 98.9 [degF] Dr. Ryan Garrido DO Work Phone: [facility] 01-31-2025 10:55-0400 Body weight 121.[address] Ryan Garrido DO Work Phone: [facility] 01-31-2025 10:55-0400 Diastolic blood pressure 80 mm[Hg] Dr. Ryan Garrido DO Work Phone: [facility] 01-31-2025 10:55-0400 Heart rate 77 /min Dr. Ryan Garrido DO Work Phone: [facility] 01-31-2025 10:55-0400 SaO2% (BldA) [Mass fraction] 95 % Dr. Ryan Garrido DO Work Phone: [facility] 01-31-2025 10:55-0400 Systolic blood pressure 120 mm[Hg] Dr. Ryan Garrido DO Work Phone: [facility] 01-26-2025 08:06-0400 Body height 182.[address] Ryan Garrido DO Work Phone: [facility] 01-26-2025 08:06-0400 Body mass index (BMI) [Ratio] 35.9 kg/m2 Dr. Ryan Garrido DO Work Phone: [facility] 01-26-2025 08:06-0400 Body weight 120.[address] Ryan Garrido DO Work Phone: [facility] 08-30-2023 08:15-0500 Body temperature 97.8 [degF] Dr. Ryan Garrido Work Phone: [facility] 08-30-2023 08:15-0500 Diastolic blood pressure 78 mm[Hg] Dr. Ryan Garrido Work Phone: [facility] 08-30-2023 08:15-0500 Heart rate 66 /min Dr. Ryan Garrido Work Phone: [facility] 08-30-2023 08:15-0500 Respiratory rate 16 /min Dr. Ryan Garrido Work Phone: [facility] 08-30-2023 08:15-0500 SaO2% (BldA) [Mass fraction] 95 % Dr. Ryan Garrido Work Phone: [facility] 08-30-2023 08:15-0500 Systolic blood pressure 127 mm[Hg] Dr. Ryan Garrido Work Phone: [facility] 08-30-2023 06:35-0500 Body height 182.[address] Ryan Garrido Work Phone: [facility] 08-30-2023 06:35-0500 Body mass index (BMI) [Ratio] 37 kg/m2 Dr. Ryan Garrido Work Phone: [facility] 08-30-2023 06:35-0500 Body weight 123.[address] Ryan Garrido Work Phone: [facility] 05-04-2023 09:32-0400 Body height 182.[address] Ryan Garrido Work Phone: [facility] 05-04-2023 09:32-0400 Body mass index (BMI) [Ratio] 36.2 kg/m2 Dr. Ryan Garrido Work Phone: [facility] 05-04-2023 09:32-0400 Body weight 121.[address] Ryan Garrido Work Phone: [facility] 09-06-2022 08:14-0500 Body height 182.[address] Ryan Garrido Work Phone: [facility] 09-06-2022 08:14-0500 Body mass index (BMI) [Ratio] 36.7 kg/m2 Dr. Ryan Garrido Work Phone: [facility] 09-06-2022 08:14-0500 Body weight 122.[address] Ryan Garrido Work Phone: [facility] Encounters Encounter Date Encounter Type Care Provider Facility Start: 06-12-2025 End: 06-12-2025 ambulatory Ryan Garrido Facility:[facility] Start: 05-13-2025 End: 05-13-[address] Chato Garza MD -[facility] Start: 05-13-2025 End: 05-13-[address] Ryan Garrido DO Work Phone: -[facility] Start: 02-09-2025 End: 02-09-[address] Ryan Garrido DO Work Phone: [facility] Work Phone: Start: 02-09-2025 End: 02-09-[address] Brandyn Tijerina DO -[facility] Work Phone: Start: 02-02-2025 End: 02-02-2025 Patient encounter procedure Brianna Carlson NP-C -[facility] Work Phone: Start: 02-02-2025 End: 02-02-[address] Ryan Garrido DO Work Phone: [facility] Work Phone: Start: 01-31-2025 End: 01-31-2025 Patient encounter procedure Shannan Oneill [employer]AIR-C -[facility] Work Phone: Start: 01-31-2025 End: 01-31-[address] Ryan Garrido DO Work Phone: [facility] Work Phone: Start: 01-26-2025 End: 01-26-[address] Brandyn Tijerina DO -[facility] Work Phone: Start: 01-26-2025 End: 01-26-[address] Ryan Garrido DO Work Phone: [facility] Work Phone: Start: 09-12-2024 End: 09-12-2024 ambulatory Alan Harrell Facility:[facility] Start: 09-09-2024 End: 09-09-2024 ambulatory Sterling Moss Facility:[facility] Start: 09-01-2024 End: 09-01-2024 ambulatory Alan Julio Cesar Facility:[facility] Start: 08-30-2023 End: 08-30-2023 Admission to same day surgery center Dr. Ryan Garrido Work Phone: [facility] Start: 08-30-2023 End: 08-30-[address] Ryan Garrido Work Phone: [facility] Work Phone: Start: 08-03-2023 Non-patient / Non-visit Dr. Randal Garrido Work Phone: [facility] Start: 08-03-2023 End: 08-03-[address] Ryan Garrido Work Phone: [facility] Work Phone: Start: 08-03-2023 End: 08-03-[address] Ryan Garrido Work Phone: [facility]Cardi[facility] Work Phone: Start: 08-01-2023 Non-patient / Non-visit Dr. Randal Garrido Work Phone: [facility] Start: 08-01-2023 End: 08-01-[address] Ryan Garrido Work Phone: [facility] Work Phone: Start: 08-01-2023 End: 08-01-[address] [facility] Work [facility]: Start: 05-04-2023 End: 05-04-[address] Ryan Garrido Work Phone: [facility] Work Phone: Start: 11-29-2022 End: 11-29-[address] Ryan Garrido Work Phone: [facility] Work Phone: Start: 11-29-2022 End: 11-29-[address] Ryan Garrido Work Phone: [facility] Start: 11-16-2022 End: 11-16-[address] Ryan Garrido Work Phone: [facility] Work Phone: Start: 11-16-2022 End: 11-16-[address] Ryan Garrido Work Phone: [facility] Start: 11-02-2022 End: 11-02-[address] Ryan Garrido Work Phone: [facility] Work Phone: Start: 11-02-2022 End: 11-02-[address] Ryan Garrido Work Phone: [facility] Start: 10-31-[address] Ryan Garrido Work Phone: [facility]Physical Therapy Start: 10-26-[address] Ryan Garrido Work Phone: [facility] Start: 10-20-2022 End: 10-20-[address] Ryan Garrido Work Phone: [facility] Work Phone: Start: 10-20-2022 End: 10-20-[address] Ryan Garrido Work Phone: [facility]Sleep Lab Start: 09-20-2022 End: 09-20-[address] Ryan Garrido Work Phone: [facility] Start: 09-06-2022 End: 09-06-[address] Ryan Garrido Work Phone: [facility] Start: 08-22-2022 End: 08-22-2022 ambulatory [facility] Work Phone: Start: 08-22-2022 End: 08-22-2022 Patient encounter procedure [facility], [place] Procedures Date Procedure Procedure Detail Performing Clinician Start: 08-30-2023 Decompression of med beatriz nerve Dr. Ryan Garrido Work Phone: Start: 11-29-2022 X-ray of both feet Dr. Ryan Garrido Work Phone: Start: 11-16-2022 X-ray of both feet Dr. Ryan Garrido Work Phone: Start: 11-02-2022 X-ray of both feet Dr. Ryan Garrido Work Phone: Start: 08-22-2022 End: 08-22-2022 Radiologic examination of knee Plan of Treatment Date Care Activity Detail Author Start: 08-14-2025 ambulatory Ambulatory Facility:[facility] Start: 08-11-2025 ambulatory Ambulatory Facility:[facility] Start: 05-13-2025 Radiologic exam knee complete 4/more views Knee 4 or More Views [facility] Start: 05-13-2025 XR Knee GE 4 Views [facility] Start: 08-30-2023 Catheterization of vein [facility] Start: 08-30-2023 Following clinical pathway protocol [facility] Start: 08-30-2023 Patient discharge [facility] Start: 08-30-2023 Procedure discontinued [facility] Start: 08-30-2023 Taking patient vital signs [facility] Start: 08-30-2023 Vital signs measurements [facility] Start: 08-30-2023 [facility] Start: 08-30-2023 Medication education [facility] Start: 09-06-2022 Patient referral [facility] Work Phone: Patient referral [facility] Work Phone: Payers Date Payer Category Payer Self-pay [id number] 2024 Unknown [id number] 2016 Unknown [id number] Unknown [id number] 2.16.8 [id number] Unknown [id number] 2.16.8 [id number] Unknown [id number] 2.16.8 [id number] Unknown [id number] 2.16.8 [id number] Unknown [id number] 2.16.8 [id number] Unknown [id number] 2.16.8 [id number] Unknown [id number] 2.16.8 [id number] Unknown [id number] 2.16.8 [id number] Unknown [id number] 2.16.8 [id number] Unknown [id number] 2.16.8 [id number] Unknown [id number] 2.16.8 [id number] Unknown [id number] 2.16.8 [id number] Social History Date Type Detail Facility Start: 09-03-2020 End: 08-22-2023 Tobacco smoking status NHIS Unknown if ever smoked [facility] Start: 09-03-2020 Non-smoker [facility] Start: 1965 Sex Assigned At Male W [facility] Start: 09-08-2024 Tobacco smoking stat us NHIS Never smoked tobacco (finding) [facility] Sex Male [facility] Goals Date Patient Goal Desired Activity /State Mental Status Date Assessment Result Facility 08-30-2023 Cognitive function Voice/Name [facility] Work Phone: Evaluation note 01-26-2025 Note Date & Type Note Facility 01-26-2025 Evaluation note Diagnosis Onset Date Resolution Osteoarthritis of knees, bilateral acute January 26, 2025 8:04am [facility] Work Phone: Evaluation note 01-26-2025 Note Date & Type Note Facility 01-26-2025 Evaluation note Diagnosis Onset Date Resolution Osteoarthritis of knees, bilateral acute January 26, 2025 8:04am Cough acute January 31, 2025 10:43am Nasal congestion acute January 10:43am PND (post-nasal drip) acute Jan 10:43am Rhinorrhea acute January 31, 2025 10:43am Seasonal allergies acute January [id number] 10:43am [facility] Work Phone: Evaluation note 01-26-2025 Note Date & Type Note Facility 01-26-2025 Evaluation note Diagnosis Onset Date Resolution Osteoarthritis of knees, bilateral acute January 26, 2025 8:04am Cough acute January 31, 2025 10:43am Nasal congestion acute January 10:43am PND (post-nasal drip) acute Jan 10:43am Rhinorrhea acute January 31, 2025 10:43am Seasonal allergies acute January [id number] 10:43am Osteoarthritis of knees, bilateral acute February 02, 2025 7:50am [facility] Work Phone: Evaluation note 01-26-2025 Note Date & Type Note Facility 01-26-2025 Evaluation note Diagnosis Onset Date Resolution Osteoarthritis of knees, bilateral acute January 26, 2025 8:04am Cough acute January 31, 2025 10:43am Nasal congestion acute January 10:43am PND (post-nasal drip) acute Jan 10:43am Rhinorrhea acute January 31, 2025 10:43am Seasonal allergies acute January [id number] 10:43am Osteoarthritis of knees, bilateral acute February 02, 2025 7:50am Osteoarthritis of knees, bilateral acute February 09, 2025 8:05am Tear of left hamstring acute 2024 8:05am [facility] Work Phone: Procedure note 08-30-2023 Note Date & Type Note Facility 08-30-2023 Procedure note [facility] Procedure note 08-01-2023 Note Date & Type Note Facility 08-01-2023 Procedure note [facility] Evaluation note Note Date & Type Note Facility Evaluation note No assessment information availa ble [facility] Work Phone: Evaluation note Note Date & Type Note Facility Evaluation note Diagnosis Onset Date Knee joint stiffness, bilateral acute Osteoarthritis of knees, bilateral acute Rupture of distal biceps tendon noneactive [facility] Work Phone: Evaluation note Note Date & Type Note Facility Evaluation note Diagnosis Onset Date Osteoarthritis of knees, bilateral acute [facility] Work Phone: Reason for referral (narrative) Note Date & Type Note Facility Reason for referral (narrative) No reason for referral information available [facility] Work Phone: Summary Purpose Family History No Family History Records FoundNo Family History Records Found Advance Directives No Advanced Directives Records Found Advance Directive Response Recorded Date/ Time Advance Directives Yes July 6:05am Living Will Yes September 03 11:05am Power of Mortician Investigator Yes September 03 11:05am Advance Directive Response Recorded Date/ Time Advance Directives Yes July 7:05am Living Will Yes September 03 12:05pm Power of Mortician Investigator Yes Janna 8th, 2 021 12:05pm Advance Directive Response Recorded Date/ Time Name of Medical Power of Mortician Investigator SPOUSE August 22, 2023 1:54pm Advance Directives Yes July 6:05am Living Will No August 22 023 1:54pm Power of Mortician Investigator Yes August 22, 2023 1:54pm Advance Directive Response Recorded Date/ Time Advance Directives Yes July 7:05am Chief Complaint and Reason for Visit Chief Complaint BL knees LEFT ARM MAN KASSY OA KN RX HERE Reason for Visit Knee joint stiffness , bilateral Osteoarthritis of knees, bilateral Rupture of distal biceps tendon Chief Complaint BL knees LEFT ARM MAN KASSY OA KN RX HERE RIGHT FOOT INJURY Reason for Visit Knee joint stiffness , bilateral Osteoarthritis of knees, bilateral Rupture of distal biceps tendon Chief Complaint BL knees LEFT ARM MAN KASSY OA KN RX HERE RIGHT FOOT INJURY Pain in right foot Reason for Visit Knee joint stiffness , bilateral Osteoarthritis of knees, bilateral Rupture of distal biceps tendon Chief Complaint KNEE PAIN RIGHT UPPER EXT CTS RIGHT UPPER EXT CTS I65.23 Occlusion and stenosis of bilateral carotid Reason for Visit Osteoarthritis of kn ees, bilateral Chief Complaint KNEE PAIN RIGHT UPPER EXT CTS RIGHT UPPER EXT CTS I65.23 Occlusion and stenosis of bilateral carotid RIGHT CARPAL TUNNEL RELEASE Reason for Visit Osteoarthritis of kn ees, bilateral Chief Complaint Admit Date BL KNEES January 26, 2025 8:04a m Chief Complaint Admit Date BL KNEES January 26, 2025 8:04a m SINUS COMPLAINT/IGNACIO/COUGH January 31 10:43am Reason for Visit Admit Date Osteoarthritis of knees, bilateral January 26, 2025 8:04am Chief Complaint Admit Date BL KNEES January 26, 2025 8:04a m SINUS COMPLAINT/IGNACIO/COUGH January 31 10:43am BL KNEES February 02, 2025 7:50a m Reason for Visit Admit Date Osteoarthritis of knees, bilateral January 26, 2025 8:04am Cough January 31, 2025 10:43 am Nasal congestion January 31, 2025 10:43 am PND (post-nasal drip) January 31, 2025 10: 43am Rhinorrhea January 31, 2025 10:43 am Seasonal allergies January 31, 2025 10:43 am Chief Complaint Admit Date BL KNEES January 26, 2025 8:04a m SINUS COMPLAINT/IGNACIO/COUGH January 31 10:43am BL KNEES February 02, 2025 7:50a m BL KNEES February 09, 2025 8:05 am Reason for Visit Admit Date Osteoarthritis of knees, bilateral January 26, 2025 8:04am Cough January 31, 2025 10:43 am Nasal congestion January 31, 2025 10:43 am PND (post-nasal drip) January 31, 2025 10: 43am Rhinorrhea January 31, 2025 10:43 am Seasonal allergies January 31, 2025 10:43 am Osteoarthritis of knees, bilateral February 02, 2025 7:50am Chief Complaint Admit Date BL KNEES January 26, 2025 8:04a m SINUS COMPLAINT/IGNACIO/COUGH January 31 10:43am BL KNEES February 02, 2025 7:50a m BL KNEES February 09, 2025 8:05 am BL KNEES May 13, 2025 7:55am RM 2 May 13, 2025 8:14am Reason for Visit Admit Date Osteoarthritis of knees, bilateral January 26, 2025 8:04am Cough January 31, 2025 10:43 am Nasal congestion January 31, 2025 10:43 am PND (post-nasal drip) January 31, 2025 10: 43am Rhinorrhea January 31, 2025 10:43 am Seasonal allergies January 31, 2025 10:43 am Osteoarthritis of knees, bilateral February 02, 2025 7:50am Osteoarthritis of knees, bilateral February 09, 2025 8:05am Tear of left hamstring February 09, 2025 8 :05am Additional Source Comments (unrecognized sect ion and content) No Status Records FoundNo Status Records Found INFORMATION SOURCE (unrecogn ized section and content) DATE CREATED AUTHOR 08/27/2019 [facility] DATE CREATED AUTHOR AUTHOR'S ORGANIZ ATION 06/24/2025 [facility] Goals (unrecognized section and content) Goals may be documented in a n alternate sectionGoals may be documented in an alternate sectionGoals may be documented in an alternate sectionGoals may be documented in an alternate sectionGoals may be documented in an alternate sectionGoals may be documented in an alternate sectionGoals may be documented in an alternate sectionGoals may be documented in an alternate sectionGoals may be documented in an alternate sectionGoals may be documented in an alternate sectionGoals may be documented in an alternate sectionGoals may be documented in an alternate sectionGoals may be documented in an alternate section Care Teams (unrecognized sec tion and content) Team Status: Active Member Role Status Dates Dr. Ryan Garrido DO Family Provider Active Dr. Ryan Garrido DO Primary Care Provider Active Team Status: Inactive Member Role Status Dates Dr. Ryan Garrido DO Primary Care Provider, Referrin g Provider Active Dr. Brandyn Tijerina DO Attending Provider Active Team Status: Inactive Member Role Status Dates Dr. Ryan Garrido DO Primary Care Prov ider, Attending Provider, Referring Provider Active Team Status: Active Member Role Status Dates Dr. Ryan Garrido DO Primary Care Provider Active Dr. Brandyn Tijerina DO Attending Provider, Referring Provider Active Team Status: Inactive Member Role Status Dates Dr. Ryan Garrido DO Primary Care Provider, Attendin g Provider Active Team Status: Inactive Member Role Status Dates Dr. Ryan Garrido DO Primary Care Provider Active FRANCISCO ChávezM Attending Provider, Referri ng Provider Active Team Status: Active Member Role Status Dates Dr. Ryan Garrido DO Primary Care Prov ider, Referring Provider, Other Provider Active Dr. Angel Quan MD Attending Provider Active Team Status: Active Member Role Status Dates Dr. Ryan Garrido DO Primary Care Provider Active Dr. Justino Schuler MD Attending Provider Active Team Status: Active Member Role Status Dates Dr. Ryan Garrido DO Primary Care Prov ider, Attending Provider, Referring Provider Active Team Status: Active Member Role Status Dates Dr. Ryan Garrido DO Primary Care Provider, Referrin g Provider Active Dr. Justino Schuler MD Attending Provider Active Team Status: Inactive Member Role Status Dates Dr. Ryan Garrido DO Primary Care Provider, Referrin g Provider Active Dr. Nick Hollis DO Attending Provider Active Team Status: Inactive Member Role Status Dates Dr. Ryan Garrido DO Primary Care Provider Active Start: January 26, 2025 End: January 26, 2025 Dr. Ryan Garrido DO Referring Provider Active Start: January 26, 2025 End: January 26, 2025 Dr. Brandyn Tijerina DO Attending Provider Active Start: January 26, 2025 End: January 26, 2025 Team Status: Inactive Member Role Status Dates Dr. Ryan Garrido DO Primary Care Provider Active Start: January 31, 2025 End: January 31, 2025 Dr. Ryan Garrido DO Referring Provider Active Start: January 31, 2025 End: January 31, 2025 CAMMIE PérezC Attending Provider Active Start: January 31, 2025 End: January 31, 2025 Team Status: Inactive Member Role Status Dates Dr. Ryan Garrido DO Primary Care Provider Active Start: February 02, 2025 End: February 02, 2025 Dr. Ryan Garrido DO Referring Provider Active Start: February 02, 2025 End: February 02, 2025 CAMMIE ObregonC Attending Provider Active Start: February 02, 2025 End: February 02, 2025 Team Status: Inactive Member Role Status Dates Dr. Ryan Garrido DO Primary Care Provider Active Start: February 09, 2025 End: February 09, 2025 Dr. Ryan Garrido DO Referring Provider Active Start: February 09, 2025 End: February 09, 2025 Dr. Brandyn Tijerina DO Attending Provider Active Start: February 09, 2025 End: February 09, 2025 Team Status: Active Member Role/Relationship Status Dates Dr. Ryan Garrido DO Primary care physician Active Team Status: Inactive Member Role/Relationship Status Dates Dr. Ryan Garrido DO Primary care physician Active Start: January 26, 2025 End: January 26, 2025 Dr. Ryan Garrido DO Referring Provider Active Start: January 26, 2025 End: January 26, 2025 Dr. Brandyn Tijerina DO Attending physician Active Start: January 26, 2025 End: January 26, 2025 Team Status: Inactive Member Role/Relationship Status Dates Dr. Ryan Garrido DO Primary care physician Active Start: January 31, 2025 End: January 31, 2025 Dr. Ryan Garrido DO Referring Provider Active Start: January 31, 2025 End: January 31, 2025 CAMMIE PérezC Attending physician Active Start: January 31, 2025 End: January 31, 2025 Team Status: Inactive Member Role/Relationship Status Dates Dr. Ryan Garrido DO Primary care physician Active Start: February 02, 2025 End: February 02, 2025 Dr. Ryan Garrido DO Referring Provider Active Start: February 02, 2025 End: February 02, 2025 CAMMIE ObregonC Attending physician Active Start: February 02, 2025 End: February 02, 2025 Team Status: Inactive Member Role/Relationship Status Dates Dr. Ryan Garrido DO Primary care physician Active Start: February 09, 2025 End: February 09, 2025 Dr. Ryan Garrido DO Referring Provider Active Start: February 09, 2025 End: February 09, 2025 Dr. Brandyn Tijerina DO Attending physician Active Start: February 09, 2025 End: February 09, 2025 Team Status: Active Member Role/Relationship Status Dates Dr. Ryan Garrido DO Primary care physician Active Start: May 13, 2025 Dr. Ryan Garrido DO Referring Provider Active Start: May 13, 2025 Dr. Brandyn Tijerina DO Attending physician Active Start: May 13, 2025 Team Status: Inactive Member Role/Relationship Status Dates Dr. Ryan Garrido DO Primary care physician Active Start: May 13, 2025 End: May 13, 2025 Dr. Chato Garza MD Attending physician Active Start: May 13, 2025 End: May 13, 2025 Team Status: Inactive Member Role/Relationship Status Dates Dr. Ryan Garrido DO Primary care physician Active Start: May 13, 2025 End: May 13, 2025 Dr. Ryan Garrido DO Referring Provider Active Start: May 13, 2025 End: May 13, 2025 Dr. Brandyn Tijerina DO Attending physician Active Start: May 13, 2025 End: May 13, 2025 FOR RECORDS PERTAINING TO PATIENTS WHO ARE [...] BE BASED ON THE PRIMARY CLINICAL RECORDS. [employer] [facility]. provides no warranty or guarantee of the accuracy or completeness of information in this document.
--- NOTE | 2025-08-11 06:45 | PCM.PRE.AN2 ---
ASA Classification* ASA Classification ASA Classification: 2 Assessment & Plan Anesthesia* Anesthesia Assessment Anesthesia Assessment: Discussed sedation and/or anesthesia options, risks, benefits, and alternatives with patient/parents/legal guardian/POA. Questions invited. The patient/parents/legal guardian/POA seems to understand and agrees to proceed with anesthesia plan. Reviewed the physical assessment, medical history, allergy history and patient home medications list prior to surgery/procedure/anesthetic and documented any changes. Performed airway and anesthesia risk assessments. Anesthesia Type Anesthesia Type: Spinal and Block Anesthesia Focused Assessment* Airway Assessment Mouth opens: >3 cm Mallampati Score: II Labs Anesthesia Preop lab: CBC WBC, (4.4-11.0) 6.9 K/mm3 07/30/25, 07:35 RBC, (4.6-6.2) 4.69 M/mm3 07/30/25, 07:35 Hgb, (13.0-16.5) 15.0 g/dL 07/30/25, 07:35 Hct, (40-54) 42.6 % 07/30/25, 07:35 Plt Count, (150-450) 235 K/mm3 07/30/25, 07:35 CHEMISTRY Potassium, (3.3-5.1) 4.0 mmol/L 07/30/25, 07:35 Sodium, (133-145) 139 mmol/L 07/30/25, 07:35 Magnesium, (1.5-2.2) 2.2 mg/dL 07/30/25, 07:34 BUN, (4-19) 17 mg/dL 07/30/25, 07:35 Creatinine, (0.70-1.20) 0.96 mg/dL 07/30/25, 07:35 Glucose, (70-99) 110 mg/dL H 07/30/25, 07:35 TSH, (0.358-3.74) 1.95 uIU/mL 08/17/21, 08:52 COAG PT, (11.7-14.9) 14.0 SECONDS 07/30/25, 07:35 Pre-Assessment Diagnosis/Proposed Procedure Planned Operative Procedure(s): (B) ERAS, Bilateral Total Knee Replacement Robotic Arm Assisted Anesthesia History Anesthesia History - breastfeeding program coordinator: Anesthesia History - breastfeeding program coordinator Hx Hospitalization No 07/27/25 11:06 Any Problems With Anesthesia Yes: N,V 07/27/25 11:06 Cholinesterase deficiency No 07/27/25 11:06 You/Your Family Experience No 07/27/25 11:06 fever (hyperthermia) with Relationship Recent Exposure to Contagious No 09/12/24 12:24 Disease Does patient have nerve No 07/27/25 11:06 stimulator Patient instructed to have device shut off --Does patient have Pacemaker or ICD? When Was Last Pacemaker Check QUESTION #4 FULL TEXT: You/Your Family Experience fever (hyperthermia) with Anesthesia Last Oral Intake Last Oral intake: Last Oral Intake NPO since Meds taken in AM with sips of water? Meds patient instructed to take am of surgery PONV PONV - breastfeeding program coordinator: PONV - breastfeeding program coordinator Female No 07/27/25 11:06 HX of Motion Sickness Yes 07/27/25 11:06 HX of N/V After Surgery Yes 07/27/25 11:06 Non-Smoker Yes 07/27/25 11:06 Duration of Surgery greater Yes 07/27/25 11:06 than 60 minutes Number of Risk Factors 4 07/27/25 11:06 PONV Score Severe Risk 07/27/25 11:06 Height & Weight Height & Weight: Anesthesia: Height & Weight Height 6 ft 05/13/25 08:08 Respiratory Assessment Respiratory Assessment - breastfeeding program coordinator: Respiratory Tract Infection Hx - breastfeeding program coordinator Hx Respiratory Tract Infection No 07/27/25 11:06 STOP Sleep Apnea STOP Sleep Apnea - breastfeeding program coordinator: STOP Sleep Apnea - breastfeeding program coordinator Hx Hypertension Yes: CONTROLLED WITH MED 07/27/25 11:06 Hx Sleep Apnea Yes 07/27/25 11:06 CPAP Yes 07/27/25 11:06 BIPAP No 07/27/25 11:06 Do you snore loudly (louder than talking or can be heard Do you often feel tired/ fatigued/ sleepy during daytime? Has anyone observed you stop breathing during sleep? STOP Results Positive 07/27/25 11:06 QUESTION #5 FULL TEXT : Do you snore loudly (louder than talking or can be heard through closed doors)? Tobacco Use History Tobacco Use History - breastfeeding program coordinator: Tobacco Use History - breastfeeding program coordinator Tobacco Use Smoking Status Never smoker 07/27/25 11:06 Hx Tobacco Use No 07/27/25 11:06 Years Smoking Packs Smoked per Day Smoking Cessation Date was within the last 15 years Hx Smoking Cessation Date Hx Smoking Cessation Counseling Hematologic Medial History Hematologic Hx - breastfeeding program coordinator: Hematologic Medical Hx - flatbed driver Hx of Blood Transfusion No 07/27/25 11:06 Hx of Transfusion in last 3 No 07/27/25 11:06 Months Date of Last Transfusion (if within last 3 months) Ever experience any problems No 07/27/25 11:06 with transfusion(s)? Specify any problems Hx of Preganancy in last 3 N/A 07/27/25 11:06 Months Nurse Filling Out Transfusion NBUCHER 07/27/25 11:06 & Questions: Date: 07/27/25 07/27/25 11:06 Time: 11:12 07/27/25 11:06 Patient unable to answer at this time (ie. confused, unrespo /Reproduction History /Reproductive History - breastfeeding program coordinator: /Reproductive Hx- breastfeeding program coordinator Hx Now No 07/27/25 11:06 Gestational Age (in weeks): EDC: Hx Hx Para Hx Section SAB No 07/27/25 11:06 Does the father of the baby or his family experience fever w Father of the baby Malignant Hypertension history comment Active Medications Active Medications: Current Medications Generic Name Dose Route Start Last Admin Trade Name Freq PRN Reason Stop Dose Admin Acetaminophen 1,000 mg 08/11/25 08:55 Acetaminophen 500 Mg Tablet PO 08/11/25 08:56 PREOP ONE Celecoxib 400 mg 08/11/25 08:55 Celecoxib 200 Mg Capsule PO 08/11/25 08:56 PREOP ONE Dexamethasone Sodium Phosphate 10 mg 08/11/25 08:55 Dexamethasone 10 Mg/Ml Vial IV 08/11/25 08:56 INTRAOP ONE Gabapentin 600 mg 08/11/25 08:55 Gabapentin 600 Mg Tablet PO 08/11/25 08:56 PREOP ONE Cefazolin Sodium 3 gm/ Sodium 115 mls @ 150 mls/hr 08/11/25 08:55 Chloride IV 08/11/25 09:40 INTRAOP ONE Tranexamic Acid 1,000 mg/ 110 mls @ 660 mls/hr 08/11/25 08:55 Sodium Chloride IV 08/11/25 09:04 INTRAOP ONE Tranexamic Acid 1,000 mg/ 110 mls @ 660 mls/hr 08/11/25 08:55 Sodium Chloride IV 08/11/25 09:04 INTRAOP ONE Lactated Ringer's 1,000 mls @ 125 mls/hr 08/11/25 08:55 IV 08/11/25 16:54 .Q8H ARIADNA Magnesium Sulfate 1 gm/ 102 mls @ 408 mls/hr 08/11/25 07:30 Dextrose IV 08/11/25 07:44 PREOP ONE Lactated Ringer's 1,000 mls @ 15 mls/hr 08/11/25 06:30 IV .Q48H ARIADNA Insulin Human Lispro 1 - 6 unit 08/11/25 08:55 Insulin Lispro 100 Unit/Ml Insuln.Pen SC 08/11/25 18:00 Q4H PRN PRN BG>/= 180, SEE PROTOCOL Protocol Scopolamine HBr 1 patch 08/11/25 08:55 Scopolamine 1mg/72hr Patch TD 08/11/25 08:56 PREOP ONE PFSH Medical History Wears glasses Arthritis Fatty liver CPAP (continuous positive airway pressure) dependence Non-smoker Hypertension Personal history of colonic polyps Impacted cerumen of left ear Home Medications ?Medication ?Instructions ?Recorded ?Last Taken ?Type amlodipine 5 mg tablet 10 mg PO DAILY HTN 05/04/23 08/11/25 History meloxicam 15 mg tablet 15 mg PO QDAY PRN pain 05/13/25 Unknown History Allergy/AdvReac Type Severity Reaction Status Date / Time No Known Allergies Allergy Verified 08/11/25 06:43 Surgical History History of toe surgery History of carpal tunnel surgery of right wrist History of carpal tunnel surgery of left wrist Hx of colonoscopy History of lumbar surgery History of foot surgery Social History Smoking Status: Never smoker alcohol intake: current alcohol intake frequency: a few times a week Review of Systems (Anesthesia) ROS Narrative System reviewed and no additional complaints, except as documented.
[2025-08-11] MEDS: Lactated Ringers 1,000 ML 15 ML IV (07:09)
[2025-08-11] MEDS: Magnesium 1 GM over 15 mins IV (07:09)
[2025-08-11] MEDS: Scopolamine 1mg/72hr Patch 1 PATCH TD (07:10)
--- NOTE | 2025-08-11 07:13 | PCM.HP.BLA ---
History and Physical Date of Admission: 08/11/25 [facility] [address] [place] [address] OFFICE VISIT Date of Service: 05/13/25 MR#: [id number] Acct: [id number] Name: GAVI BLACKWELL Rep #: [id number] : 1965 Provider: Dr. Brandyn Tijerina DO Age/Sex: 60/M Location: [facility] [place] Status: Signed Intake Vital Signs 02/10/2508:05 05/13/2508:08 Height 6 ft 6 ft Weight: 265 lb 270 lb 6 oz BMI 35.9 36.6 Intake Visit Reasons: BL KNEES Allergies No Known Allergies Allergy (Verified 05/13/25 08:08) Medications ?Medication ?Instructions ?Recorded ?Confirmed ?Type amlodipine 5 mg tablet 10 mg PO DAILY 05/04/23 05/13/25 History meloxicam 15 mg tablet 15 mg PO QDAY 05/13/25 05/13/25 History [facility] Medical History (Updated 05/13/25 @ 10:[address] Brandyn Tijerina DO) Wears glasses Arthritis Fatty liver CPAP (continuous positive airway pressure) dependence Non-smoker Hypertension Personal history of colonic polyps Impacted cerumen of left ear Surgical History History of carpal tunnel surgery of right wrist History of carpal tunnel surgery of left wrist Hx of colonoscopy History of lumbar surgery History of foot surgery Social History Smoking Status: Never smoker alcohol intake: current alcohol intake frequency: a few times a week HPI BL KNEES Details: This documentation accurately reflects the service provided and the decisions made by me, Dr. Brandyn Tijerina DO 05/13/25 [id number]. Part of today?s visit was documented by Nakia POWELL, acting as scribe. GAVI BLACKWELL is a 60 year old M here today for to discuss surgery but he is unsure which knee he would want to proceed with first because they are both about equally the same. he would like to do both at the same time if possible. He did complete the Euflexxa series in January which only gave him a few months of relief. His knee is really affecting his quality of life including his gait. 02/09/2025 visit:3rd Euflexxa bilateral knee injections. Of note he did tripped in a hole in his yard last Sunday and felt pain in his posterior medial left thigh. Did develop extensive bruising on the medial side of his thigh. Plan:Bilateral knee 3rd Euflexxa injection given today. In regards to his recent injury on his left posterior medial thigh I do suspect he tore his medial hamstring I explained to him the best thing is to stretch the area. And flexibility of his entire body would be beneficial to minimize risk of further similar injuries. His pain is controlled well enough at this time. He is thinking of moving forward with total knee arthroplasty either 1 or 2 late this year 05/04/2023 visit:here today for knee pain. states that he would like to move forward with a TKA. States that both of his knees are about the same but if he were to pick which one to start with he would go with the right. He does want 08/07/23 as his surgery date. Pt states that the steroid injection on 03/21/23 did help him but only for a couple of weeks. Plan:Obtained X-rays of patient's left and right knee. Personally reviewed x-rays. There is no obvious fracture, dislocation, or lucency noted. Discussed viscosupplementation with the patient. If he has any injection in the knee he cant have surgery for 3 months after the injection. Further discussed TKA with the patient and educated that surgery would help him to get improved extension but he has good flexion of the right knee. Most important part after surgery is PT to gain as much ROM as possible after surgery. Educated that the TKA is to take away his pain from the arthritis but there is a risk of still having pain post op. Educated that it is unlikely he will gain more flexion post op then what he has right knee. 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 He could have the 2nd TKA completed as soon as 2 months after surgery or Another option is to have BL TKA at the same time but there is increased risk with blood clots, infection, and he is under anesthesia twice as long. Risks, benefits and alternatives of surgery reviewed including but not limited to bleeding, infection, nerve, artery and/or tissue damage, fracture, VTE, mechanical feel of the knee, continued pain, stiffness and expected post-operative course. His surgery would be planned as a same day surgery for unilateral and he would stay the night for BL. Patient still doesnt wish to have surgery until 07/2023 and he will call the office if he decides he wishes to proceed with BL TKA or just unilateral TKA. Follow up for IOVERA treatment or sooner if pain, swelling, numbness or associated symptoms, or concerns develop. All questions answered. Patient in agreement of plan. 12/20/2022 visit: Bilateral knee steroid injections 09/06/2022 visit: NEW patient here today for BL knee pain that started getting worse over the summer. His main concern is the stiffness in the knees. He states that the left knee is slightly worse than the right knee. He states that he has a lot of stiffness after sitting for a long time. Increased stiffness throughout the day. He is bow legged. He states that he has a generalized dull achiness at night. He states that the stiffness is his main concern. He has limited flexion of the knees. Denies any painful popping clicking or locking in the knees. Denies any PT. He does take Ibuprofen and Tylenol for the pain which is helpful with the pain and not the stiffness. Denies any past surgery or injections on the knees. Denies any knee bracing. He does take a hot bath to help with the pain as well. He is a dan. Plan:Obtained X-rays of patient's BL knees. Personally reviewed x-rays. There is no obvious fracture, dislocation, or lucency noted. Patient educated that he does have advanced bone on bone arthritis of the BL knees. Treatment options are do nothing or bracing or steroid injection or PT or NSAIDs or TKA. He wishes to proceed with steroid injections today along with PT at [facility] specifically to help with his stiffness as this is his main concern. Ortho Exam General General: Yes no acute distress Neurologic: Yes alert and Yes oriented x3 Psychologic: Yes reasonable and appropriate Right Knee Skin/Wound: No erythema, No ecchymosis and Yes swelling Homans Sign: No Knee ROM: Yes ROM-Extension -20 to 0 (-25) and Yes ROM-Flexion 0-140 (105) Examination: Yes Med jt line tenderness and Yes Crepitus Stability: NML: Bert, NML: Posterior Drawer, NML: Valgus 0, NML: Valgus 30, NML: Varus 0 and NML: Varus 30 Patella Translation: 1 Left Knee Skin/Wound: No ecchymosis, No erythema and Yes swelling Knee ROM: Yes ROM-Extension -20 to 0 (-22) and Yes ROM-Flexion 0-140 (98) Examination: Yes med jt line tenderness, No Crepitus and Yes Pain with flexion Stability: NML: Bert, NML: Posterior Drawer, NML: Valgus 0 and NML: Valgus 30 Patella Translation: 1 KNEE: No gross motor or sensory deficits Constitutional: Well-developed; well-nourished; in no acute distress Eyes: No jaundice ENT: Nares patent; no obvious deformity Cardiovascular: No cyanosis; clubbing; or edema Lymphatic: No adenopathy in area of examination Skin: No rashes or lesions in the area of examination and intact Neurologic: Alert and oriented x 3 Psychiatric: Mood and affect appropriate Supplemental Info 05/13/2025 x-ray right knee: Advanced [id number] medial compartment arthritis with varus deformity, moderate patellofemoral arthrosis 05/13/2025 x-ray left knee: Advanced bbxr-qw-[id number] medial compartment arthritis with varus deformity, moderate -severe patellofemoral arthrosis 08/22/2022 x-ray right knee: Advanced oggv-oi-xzfc medial compartment arthritis with varus deformity, moderate patellofemoral arthrosis 08/22/2022 x-ray left knee:Advanced [id number]-nv-[id number] medial compartment arthritis with varus deformity, moderate -severe patellofemoral arthrosis Coding Level of Care Code Off vis,est,level 4 Diagnoses Primary osteoarthritis of right knee M17.11 Osteoarthritis type: primary Primary osteoarthritis of left knee M17.12 Osteoarthritis type: primary Obesity E66.9 Obesity type: due to excess calories CPAP (continuous positive airway pressure) dependence Z99.89 Assessment and Plan Assessment and Plan (1) Right knee DJD: Status: Acute Qualifiers: Osteoarthritis type: primary Qualified Code(s): M17.11 - Unilateral primary osteoarthritis, right knee (2) Left knee DJD: Status: Acute Qualifiers: Osteoarthritis type: primary Qualified Code(s): M17.12 - Unilateral primary osteoarthritis, left knee (3) Obesity: Status: Acute Qualifiers: Obesity type: due to excess calories (4) CPAP (continuous positive airway pressure) dependence: Status: Acute Orders: Orders Knee 4 or More Views Today M17.0 - Bilateral primary osteoarthritis of knee Knee 4 or More Views Today M17.0 - Bilateral primary osteoarthritis of knee Plan Patient is here today for continued bilateral knee pain. I did obtain and review xrays today with patient and informed him that they do show severe arthritis of the medial compartment that is causing a significant varus deformity. I did review non-surgical treatment options are do nothing, steroid injection, viscosupplementation injections, weight loss, glucosamine chondroitin, bracing, physical therapy or a TKA. I did discuss the Iovera procedure today that I would recommend he do if his insurance covers it. Risks, benefits and alternatives of surgery reviewed including but not limited to bleeding, infection, nerve, artery and/or tissue damage, fracture, VTE, mechanical feel of the knee, continued pain, stiffness and expected post-operative course. I spoke with patient that the main focus after surgery is for him to work on his flexion and extension to avoid getting a lot of stiffness in the knees. I advised patient that after surgery he should be aware of signs of a blood clot which would be increased calf swelling and pain or tenderness to the calf. he should avoid taking any NSAIDs 1 week before surgery and while on postoperative blood thinner and should stop taking tumeric 3 weeks before surgery. I spoke with patient that we that if he wishes to proceed with doing both at the same time I can do that but he would be at a higher risk for infection and blood clots anesthesia risks and other complications are increased with having bilateral procedure done we cannot do a spinal. Patient would like to proceed with surgery in July. With him having sleep apnea I did advise him that does also put him at a higher risk. He can bring his sleep apnea machine to the hospital He wishes to proceed with bilateral total knee arthroplasty This will need to be an admission. Patient would like to proceed with the Iovera as well. I spoke with patient that while he is waiting on surgery I would recommend he work on his flexion and extension before surgery to try and get the best results after surgery. As he is at increased risk for postoperative stiffness with his preoperative stiffness We will go ahead with a tentative surgery date for August [address] scan bilateral knees for MAKOplasty Will need medical clearances. Follow up for Iovera procedure or sooner if pain, swelling, numbness or associated symptoms, or concerns develop. All questions answered. Patient in agreement of plan. 05/13/25 1019 <Electronically signed by Brandyn Tijerina DO> Date Brandyn Tijerina DO Cosigner Signature: Date (if applicable) I have examined the patient and the H&P has been reviewed. There are no clinical changes since date of exam.
--- NOTE | 2025-08-11 08:15 | KNEE_PTH ---
PATIENT: GAVI BLACKWELL LOC: [facility] U#:[id number] AGE/SX: 60/M [place] [facility] [place]: Dr. Brandyn Tijerina DO : 1965 BED: 1 DIS: 08/13/2025 SPEC #: [id number] RECD: 08/11/25 14:42 STATUS: DESIRAE REChristos #: [id number] MARYELLEN: 08/11/25 08:[address]: Brandyn Tijerina DEPT: SURGICAL PATHOLOGY RECD BY: Jorge Byrd ENTERED: 08/12/25 15:37 SP TYPE: TOTAL KNEE OTHR DR: Dr. Ryan Garrido DO Tissues: A - Knee, NOS B - Knee, NOS Procedures: Decalcification bone/plaque Surgery Specimen Level III HEADER OPERATION: Bilateral total knee replacement robotic arm assisted PRE-OP DIAGNOSIS: Primary osteoarthritis of left, right knees TISSUE SUBMITTED: A- Right knee bone and tissue, B- Left knee bone and tissue MICROSCOPIC DIAGNOSIS A. Bone and soft tissue, knee, right, total knee replacement:B. Bone and soft tissue, knee, left, total knee replacement: MICROSCOPIC DESCRIPTION Slides are reviewed. GROSS DESCRIPTION Received in 2 formalin containers labeled with the patient's name and date of . Designated as: A. Right knee bone + tissue is a 14.2 x 12.3 x 3.3 cm aggregate of dotson-yellow to red irregular bone and tissue fragments, collectively comprising a knee joint. The articular cartilage is doston with erythematous granularity, eburnation and mild to moderate osteophyte formation. Additionally, a possible loose body is identified. Learning And Development Coordinator sections are submitted in 2 cassettes, following decalcification. B. Left knee bone + tissue is a 17.2 x 11.0 x 3.4 cm aggregate of dotson-yellow to red irregular bone and tissue fragments, collectively comprising a knee joint. The articular cartilage is dotson with erythematous granularity, eburnation and mild to moderate osteophyte formation. Learning And Development Coordinator sections are submitted in 2 cassettes, following decalcification. [place] 08/12/2025PT:[id number]
[2025-08-11] MEDS: Midazolam 2 MG/2 ML Syringe IV (08:25)
[2025-08-11] MEDS: Lidocaine 1% (5 ml sdv) 5 ML Vial 2 ML IV (08:31)
[2025-08-11] MEDS: TRANEXAMIC ACID 1,000 MG/10 ML ML 2000 MG IV (08:40)
[2025-08-11] MEDS: dexMEDEtomidine 200 MCG/2 ML ML 195.43 MCG IV (08:44)
[2025-08-11] MEDS: Epinephrine (1 mg/ml) 1 MG/ML VIAL (10:00)
[2025-08-11] MEDS: 0.9% Normal Saline (Pres. free 10 ML Vial (10:00)
[2025-08-11] MEDS: Lactated Ringers 3,000 ML 3000 ML IV (11:19)
[2025-08-11] MEDS: Cefazolin 1 GM/5 ML Vial 5 GM IV (11:30)
[2025-08-11] MEDS: fentaNYL 100 MCG/2 ML Ampul 200 MCG IV (13:20)
--- NOTE | 2025-08-11 13:44 | OP.PCM_ITS ---
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 significant Post-Operative Diagnosis: Same Surgery/Procedure Performed: Bilateral total knee arthroplasty insurance verify rep: Yes Deputy Sheriff K9 Handler: Lev Biggs Tasks completed by occupational therapy assist: Opening & closing and Implanting device Type of Anesthesia: General RN Documented Start/Stop Times: Operation Date: 08/11/25 08:15 Case Time Into Pre-Op 08/11/25 06:23 Anesthesia Start 08/11/25 08:24 Into Room 08/11/25 08:24 Procedure Start 08/11/25 08:51 Procedure End 08/11/25 13:25 Anesthesia End 08/11/25 13:32 Out of Room 08/11/25 13:32 Into Recovery 08/11/25 13:37 Procedure Start Time: 08:51 Procedure Stop Time: 13:25 Select all DRAINS/GRAFTS/IMPLANTS that apply: Prosthetic device Prosthetic device details: Haroldo Estimated Blood Loss: 350 Specimen collected: Yes Description of specimen(s) removed: Bone Description of surgery: Preoperative diagnosis: Bilateral knee DJD with flexion contracture and varus deformity Postoperative diagnosis: Same Procedure: Bilateral total knee arthroplasty CT guided Robotic Assisted Implant: Haroldo triathlon right knee: Press fit, femoral component size6, tibial baseplate size 7, asymmetric patella size 40, polyethylene X3 size 9 CS Left knee: Press fit, femoral component size6, tibial baseplate size 7, asymmetric patella size 40, polyethylene X3 size 9 CS Anesthesia: General With adductor canal block Tourniquet time: 20 minutes right knee 17 minutes left knee minutes at 300 mmHg Complications: None Condition: Stable to PACU Estimated blood loss: 175 cc per knee 350 cc total [employer] Specialist Lev Biggs. My physician assistant winemaker was a vital part of this case. He was important in appropriate retraction during the case, and protection of soft tissues during procedure. His intimate knowledge of the case and my steps aided in safe and expedient completion of the procedure as well as appropriate position of the extremity during the case. He was also vital in assisting with closure under my direct supervision. Indication for procedure: This is a 60-year-old male with long standing degenerative joint disease of the knee with a 18 degree flexion contracture on the right and a 22 degree flexion contracture on the left and significant varus deformity of bilateral knees who has failed conservative treatment and wished to proceed with elective total knee arthroplasty. Risk benefits and alternatives were reviewed including; risk of bleeding, infection, nerve artery and tissue damage, continued pain, postoperative stiffness, venous thromboembolism, need for postoperative rehabilitation, mechanical feel to the knee, and expected postoperative course. The pre- operative CT and templating was performed with component sizing. Procedure: The patient was met in the preoperative holding area. The operative extremity was identified by both patient and physician and was marked. Patient was met by anesthesia. An adductor canal block was placed by anesthesia postoperatively the patient was brought back to the operating room on a wheeled cart and transferred to the operating table in the supine position. Anesthesia was started. A well-padded tourniquet was placed on the operative extremity. The patient was prepped and draped in the usual sterile fashion. A timeout was called to ensure the proper patient procedure and extremity were being contemplated. An esmarch was used to exsanguinate the extremity. The tourniquet was inflated. A 10 blade scalpel was used to make a midline incision down through the skin and subcutaneous tissue. Skin retractors placed. Bovie and Aquamantis were used to perform meticulous hemostasis. full-thickness flaps were elevated medial and lateral along the joint capsule. A deep blade scalpel was used to perform a medial parapatellar arthrotomy. The knee was brought to full extension. A bovie was used to release the soft tissues off the most proximal aspect of the medial tibial plateau, a three-quarter inch curved osteotome was also used in this process. The infrapatellar fat pad was excised. The suprapatellar fat pad was excised partially anteriorolateraly and portion the anterioromedial pad was elevated from the femur. At this point our intra- articular femoral array was placed at a 45 degree angle proximal and posterior to the medial epicondyle. femoral checkpoint was placed at this time. Our tibial array was placed partially intra incisional 1 stab incision was made for the inferior pin with a 15 blade scaple, and pins were placed and attached to the tibial array , tibial checkpoint was placed in the proximal tibial me taphysis. Tourniquet was let down. At this point registration gonzalez were taken throughout the knee . Once the knee was registered we then tensioned the medial and lateral ligaments in extension and 90 degrees of flexion. We then used these numbers to adjust our components within parameters to balance the knee in both flexion and extension once this was done on our monitor we then proceeded with using the robotic arm to make our tibial plateau cut, anterior and posterior chamfer and distal femur cuts. we removed the cut fragments with the use of a bovie and Shilpa, we did use a lamina director of managed care to insure we visualized and removed all posterior osteophytes and at this time also used the Aquamantis on the posterior joint capsule. we then trialed and achieved the desired plan with a well-balanced knee. we used the green probe to timothy the corresponding tibial rotation based on our CT template. Lug holes were drilled in the femur the tibia preparation was completed with the appropriate sized base plate pinned based on previous rotation timothy. An appropriate sized fin punch was used on the tibia and 4 corner drill was used for the press fit component and the patella was prepared by first using a caliper to ensure sufficient bone stock and a patellar reamer to remove the desired amount of bone. lug holes drilled for an asymmetric poly. We then brought the knee through range of motion with excellent patellar tracking. We thoroughly irrigated the knee. Trial components were removed a posterior capsular injection was preformed with our standard cocktail. In addition the aqua Mantis was also used to aid in hemostasis. Betadine rinse was allowed to sit and washed out completely. Components were press-fit into place. Aricept rinse was then used followed by several more liters of irrigation after it was allowed to sit. The joint capsule was closed with #1 Ethibond [id number] in the upper part of the arthrotomy and #1 Vicryl in the lower part of the arthrotomy. , Followed by 2-0 Vicryl in the subcutaneous tissues with yesi in the skin. Arrays and checkpoints were removed prior to closure all counts were correct stab incisions were closed with a staple standard dressing in the form of Mepilex AG for the main incision and a small Mepilex over the pin holes. Thigh-high ANKIT hose applied over top of dressing. Drapes were removed patient was then reprepped and draped in the sterile fashion and positioned for the left side. A well-padded tourniquet was placed on the operative extremity. The patient was prepped and draped in the usual sterile fashion. A timeout was called to ensure the proper patient procedure and extremity were being contemplated. An esmarch was used to exsanguinate the extremity. The tourniquet was inflated. A 10 blade scalpel was used to make a midline incision down through the skin and subcutaneous tissue. Skin retractors placed. Bovie and Aquamantis were used to perform meticulous hemostasis. full-thickness flaps were elevated medial and lateral along the joint capsule. A deep blade scalpel was used to perform a medial parapatellar arthrotomy. The knee was brought to full extension. A bovie was used to release the soft tissues off the most proximal aspect of the medial tibial plateau, a three-quarter inch curved osteotome was also used in this process. The infrapatellar fat pad was excised. The suprapatellar fat pad was excised partially anteriorolateraly and portion the anterioromedial pad was elevated from the femur. At this point our intra-articular femoral array was placed at a 45 degree angle proximal and posterior to the medial epicondyle. femoral checkpoint was placed at this time. Our tibial array was placed partially intra incisional 1 stab incision was made for the inferior pin with a 15 blade scaple, and pins were placed and attached to the tibial array , tibial checkpoint was placed in the proximal tibial metaphysis. Tourniquet was let down. At this point registration gonzalez were taken throughout the knee . Once the knee was registered we then tensioned the medial and lateral ligaments in extension and 90 degrees of flexion. We then used these numbers to adjust our components within parameters to balance the knee in both flexion and extension once this was done on our monitor we then proceeded with using the robotic arm to make our tibial plateau cut, anterior and posterior chamfer and distal femur cuts. we removed the cut fragments with the use of a bovie and Shilpa, we did use a lamina director of managed care to insure we visualized and removed all posterior osteo phytes and at this time also used the Aquamantis on the posterior joint capsule. we then trialed and achieved the desired plan with a well-balanced knee. we used the green probe to timothy the corresponding tibial rotation based on our CT template. Lug holes were drilled in the femur the tibia preparation was completed with the appropriate sized base plate pinned based on previous rotation timothy. An appropriate sized fin punch was used on the tibia and 4 corner drill was used for the press fit component and the patella was prepared by first using a caliper to ensure sufficient bone stock and a patellar reamer to remove the desired amount of bone. lug holes drilled for an asymmetric poly. We then brought the knee through range of motion with excellent patellar tracking. We thoroughly irrigated the knee. Trial components were removed a posterior capsular injection was preformed with our standard cocktail. In addition the aqua Mantis was also used to aid in hemostasis. Betadine rinse was allowed to sit and washed out completely. Components were press-fit into place. Aricept rinse was then used followed by several more liters of irrigation after it was allowed to sit. The joint capsule was closed with #1 Ethibond [id number]'s in the upper part of the arthrotomy and #1 Vicryl in the lower part of the arthrotomy. , Followed by 2-0 Vicryl in the subcutaneous tissues with yesi in the skin. Arrays and checkpoints were removed prior to closure all counts were correct stab incisions were closed with a staple standard dressing in the form of Mepilex AG for the main incision and a small Mepilex over the pin holes. Thigh-high ANKIT hose applied over top of dressing. Patient tolerated the procedure well and was directed to PACU in stable condition . There were no intraoperative complications. Surgical Findings: Advanced DJD varus deformity and flexion contracture Complications Complications: No
[2025-08-11] MEDS: LR 1,000 ML - 125 ML/HR (POST BOLUS) POST OP IV (13:55)
--- NOTE | 2025-08-11 13:55 | RAD_ITS ---
PROCEDURE: KNEE 1 OR 2 VIEWS 08/11/2025 REASON FOR EXAM: POST OP PACU TECHNIQUE: Procedure Code: RADK Modality: DX Procedure: KNEE 1 OR 2 VIEWS Laterality: Right knee COMPARISON: May 13, 2025 FINDINGS: The patient is status post total knee replacement. There is good alignment. Postoperative soft tissue changes. RAD/Knee 1 or 2 Views IMPRESSION: Status post total knee replacement. There is good alignment. Postoperative soft tissue changes. Reading Location: [id number]
--- NOTE | 2025-08-11 13:55 | RAD_ITS ---
PROCEDURE: KNEE 1 OR 2 VIEWS 08/11/2025 REASON FOR EXAM: POST OP PACU TECHNIQUE: Procedure Code: RADK Modality: DX Procedure: KNEE 1 OR 2 VIEWS Right knee two views COMPARISON: May 13, 2025 FINDINGS: There is a total knee prosthesis in position. Soft tissue air and surgical yesi are noted consistent with recent surgery. Mineralization is normal. RAD/Knee 1 or 2 Views IMPRESSION: Hardware in position. Reading Location: [facility]
--- NOTE | 2025-08-11 13:59 | PCM.POST.ANE ---
Anesthesia: Postop Eval I Current Vital Signs Temperature: 97.5 F Pulse Rate: 63 Blood Pressure: 104/62 Respiratory Rate: 14 Pulse Ox: 95 Oxygen Delivery Method: Nasal Cannula Oxygen Flow Rate (L/min): 4 Assessment Airway patent: Yes Spontaneous unlabored respirations: Yes Mental status: Awake and Calm nausea: No Vomiting: No Anesthesia Complication: No Fluid Hydration Crystalloid volume administer (ml): 3,000 Total IV fluid infused: 3,000 Progress Note Anesthesia document: Postop Eval 1 completed: Yes
[2025-08-11] MEDS: Lactated Ringers 1,000 ML 125 ML IV ×2 (15:47→21:47)
[2025-08-11] MEDS: Ensure Surgery 237 ML LIQUID PO (17:14)
[2025-08-11] MEDS: Cefazolin 2 GM in 0.9% Normal Saline (100mL Bag) 100 ML IV (20:30)
[2025-08-11] MEDS: MELATONIN 10 MG TABLET PO (21:45)
[2025-08-11] MEDS: Senna/Docusate Sodium 1 Tablet 2 TABLET PO (21:46)
[2025-08-12 03:13] VITALS: BP 119/77; PULSE 88; RESP 16; TEMP 36.6; O2SAT 95
[2025-08-12] MEDS: Cefazolin 2 GM in 0.9% Normal Saline (100mL Bag) 100 ML IV ×2 (04:53→12:07)
[2025-08-12] MEDS: APIXABAN 2.5 MG TABLET (WCH) PO ×2 (06:01→21:14)
[2025-08-12 06:38] VITALS: BP 129/69; PULSE 77; RESP 16; TEMP 36.8; O2SAT 95
[2025-08-12 06:49] LABS: Hematocrit 32.7 % (40-54); Hemoglobin 11.0 g/dL (13.0-16.5); Mean Corp Hgb Conc 33.6 g/dL (32-36); Mean Corpuscular Volume 94.5 fL (80-94); Mean Platelet Vol. 9.5 fl (6.2-12.0); Platelet Count 237 K/mm3 (150-450); RBC Distribution Width CV 13.1 % (11.6-14.6); RBC Distribution Width SD 45.0 fl (35.1-43.9); Red Blood Count 3.46 M/mm3 (4.6-6.2); White Blood Count 14.1 K/mm3 (4.4-11.0)
[2025-08-12 07:13] LABS: Anion Gap 10 (5-15); BUN 20 mg/dL (4-19); BUN/Creat Ratio 17.8 RATIO (10-20); Calcium,Total 8.5 mg/dL (7.6-11.0); Carbon Dioxide 23.0 mmol/L (21.0-32.0); Chloride 105 mmol/L (98-108); Estimated Creatinine Clearance 93.54 ml/min (50-250); Glucose 140 mg/dL (70-99); Potassium 4.5 mmol/L (3.3-5.1)
[2025-08-12 09:32] VITALS: BP 141/99; PULSE 94; RESP 18; TEMP 37.2; O2SAT 95
[2025-08-12] MEDS: Ensure Surgery 237 ML LIQUID PO ×3 (09:45→18:03)
--- NOTE | 2025-08-12 11:58 | PN.ORTHO_ITS ---
Subjective Subjective Seen and examined, having pain but controllable. Required straight cath for urinary retention. Denies fever chills nausea vomiting shortness of breath or chest pain. Objective Data Objective Data Vital Signs: Vital Signs Temp Pulse Resp BP Pulse Ox O2 Del Method O2 Flow Rate 98.9 F 94 18 141/99 H 95 Room Air 2 08/12/25 09:32 08/12/25 09:32 08/12/25 09:32 08/12/25 09:32 08/12/25 09:32 08/12/25 09:33 08/11/25 17:13 Oxygen Flow Rate (L/min) 2 Oxygen Delivery Method Room Air Weight: 271 lb 9.752 oz Body Mass Index (BMI) 36.8 Intake & Output: Intake and Output for Last 24 Hours 08/10/25 08/11/25 08/12/25 23:59 23:59 23:59 Intake Total 4581.42 / 4581.42 1349.58 / 1349.58 Output Total 880 / 1205 2925 / 2925 Balance 3701.42 / 3376.42 -1575.42 / -1575.42 Lab / Micro Data 08/12/25 05:54 08/12/25 05:54 Labs: Laboratory Results - last 24 hr 08/12/25 05:54: WBC 14.1 H, RBC 3.46 L, Hgb 11.0 L, Hct 32.7 L, MCV 94.5 H, MCH 31.8, MCHC 33.6, RDW Std Deviation 45.0 H, RDW Coeff of Georgina 13.1, Plt Count 237, MPV 9.5, Sodium 137, Potassium 4.5, Chloride 105, Carbon Dioxide 23.0, Anion Gap 10, BUN 20 H, Creatinine 1.11, Estim Creat Clear Calc 93.54, Est GFR (MDRD) Non- Af 75, BUN/Creatinine Ratio 17.8, Glucose 140 H, Calcium 8.5 Micro: Microbiology 07/30/25 07:35 Swab (Method) Nasal Screen MRSA/MSSA - Final Radiography Diagnostic Testing: Radiology Impression Knee X-Ray 08/11/25 13:55 IMPRESSION: Status post total knee replacement. There is good alignment. Postoperative soft tissue changes. Reading Location: [id number] Knee X-Ray 08/11/25 13:55 IMPRESSION: Hardware in position. Reading Location: [facility] Physical Exam Const alert, oriented x3 and no apparent distress General Appearance: cooperative Extremity Extremity Narrative: Bilateral knee dressings clean dry intact compartments soft neurovascular intact EHL tibialis anterior gastrocsoleus intact sensation light touch palpable pedal pulses. Assessment & Plan Assessment/Plan (1) S/P total knee arthroplasty: QUALIFIERS: Laterality: bilateral Qualified Code(s): Z96.653 - Presence of artificial knee joint, bilateral PLAN: Plan Postop day #1 bilateral total knee arthroplasty PT OT weightbearing as tolerated encourage full knee range of motion DVT prophylaxis SCDs ANKIT hose Eliquis 2.5 mg twice daily for 3 weeks postop Will add Flomax for urinary retention. Continue current care plan for DC home tomorrow if well.
--- NOTE | 2025-08-12 12:00 | CASEMGMT ---
LEVI BEAVERS Assessment: Face to Face with pt for initial transition planning/care coordination assessment. LEVI BEAVERS introduced self and role at [facility], pt voices understanding and consents to assessment. Pt is A&O x4 and answers all questions appropriately at this time. Pt lying in bed in no distress with at bedside. Care providers, pharmacy, and demographics verified/updated. Admitting Dx: Bilat TKR Strata Score: 1 PCP:Radhika Specialists:ashutosh Tijerina; mile Houser Preferred Pharmacy: [facility] Retail Insurance: [employer] [facility] Prescription Benefit: yes LNOK: Gita Montenegro, Living Arrangements: Pt lives with in a two story home with 2 steps to enter. Pt has FFSU with sleeping in recliner. Pt reports prior to surgery he was indep in ADL/IADLs. Pt is able to assist him as needed. Pt states his son will be at the home to assist him in. Pt denies concerns at home. Transportation: Pt drives self and denies concerns with transportation. Pt will transport pt until he can drive again. DME:FWW, raised toilet seat, shower chair, bipap HHC/SNF: Denies hx of Pt states no concerns with going home at time of dc. Pt has OP therapy set up for Sunday at [facility]. Pt states no further concerns/needs. CM to follow. Advised pt to ask CM if any further questions/concerns/needs arise, voices understanding. Pt Goal: Home with OP therapy Plan: Home with OP therapy Petra SIMS CM
--- NOTE | 2025-08-12 12:01 | DCINST_ITS ---
Documented by User: Dr. Brandyn Tijerina DO 08/12/25 12:03 Discharge Instructions DC O2, CPAP, BIPAP needs Home O2 Discharge instructions: No Dressing / Incision Call your doctor if you observe: Shortness of breath and Chest pain Additional Dressing/Incision Instructions:: Ice and elevate lower extremities 2 weeks while not ambulating. Ambulation is encouraged. Weight bearing as tolerated. Use assistive devise for stability. Encourage FULL knee extension and flexion 1 time EVERY time you get up and down and MULTIPLE times per day. No showering until 72 hours after surgery. May begin showering postop day #3. Remove the dressing prior to shower and gently wash with warm water and antibacterial soap then pat dry and place abdominal pad (or plain gauze) and ANKIT hose over top. If you decide not to begin showering 72 hrs post operatively and wish to sponge bath only, then you may leave dressing undisturbed for up to 1 week, but must remove prior to first shower. Do not submerge for 3 weeks. If not showering daily after the initial dressing is removed you must clean incision and change dressing daily after the dressing comes off, must come off by 7 days postop. Do not allow animals near the incision area. Keep clean. Follow anti-coagulation recommendations as prescribed. Do not take any NSAIDs while on blood thinner. Do not take any additional narcotic pain medication other than what was prescribed on your surgery day without discussing with physician. Narcotic medication can be addictive. Do not drink alcohol while taking narcotics. Supplement narcotic prescription with acetaminophen 1000 mg 4 times a day. Start physical therapy. If you are not currently scheduled for physical therapy or you are unsure of appointment time please call office [facility] to arrange. Call Dr. Tijerina's office ) with any concerns. Follow Up Care Please Follow Up With: Brandyn Tijerina DO When: 2 weeks Test Results: Test results from this visit will be discussed in further detail at your follow- up appointment, if applicable. Discharge Plan Admission Admit Date/Time: 08/11/25 06:12 Primary Reason for Your Visit: Bilateral total knee arthroplasty Attending Provider: Brandyn Tijerina Primary Care Provider: Ryan Garrido Providers: Jace Carroll Discharge Orders/Prescriptions Prescriptions: New tamsulosin 0.4 mg capsule 0.8 mg PO DAILY Qty: 7 0RF Rx Instructions: Take with evening meal (5:30 pm) acetaminophen 500 mg capsule 1,000 mg PO Q8H Qty: 60 0RF oxycodone 5 mg tablet 5 mg PO Q4H PRN (Reason: pain) 7 Days Qty: 60 0RF Rx Instructions: Take 1-2 tablets every 4 hrs as needed for moderate to severe pain Eliquis 2.5 mg tablet 2.5 mg PO BID Qty: 42 0RF Continued amlodipine 5 mg tablet 10 mg PO DAILY Patient Comments: TAKE 1 TABLET BY MOUTHVONCE DAILY Other Ambulatory Orders: 12 Lead EKG (Routine) Location: None Selected Ordered By: Dr. Brandyn Tijerina Referrals / Follow Up: yRan Garrido DO [Primary Care Provider, Family Practice] Disposition Disposition (needs filled in before D/C Order can be placed): Home, Self Care Documented by User: FLOR Obregon 08/13/25 12:51 Discharge Instructions Dressing / Incision Discharge Activity: Use Walker May shower in (days): 1 Weight Bearing Status: Weight bearing as tolerated Additional Activity Instructions:: Frequently elevate bilateral legs Dressing / Incision Call your doctor if your incision/area has: Increased Pain/ Swelling, Increased Redness and Swelling at the incision site Call your doctor if you observe: Fever of 101 or Higher Change Dressing in: 1 day (Antibacterialsoap and water in shower, air or pat dry. Apply gauze dressing. ) Cleanse incision/area with: Soap & Water and Keep Dressing Clean & Dry Additional Dressing/Incision Instructions:: Ice and elevate lower extremities 2 weeks while not ambulating. Ambulation is encouraged. Weight bearing as tolerated. Use assistive devise for stability. Encourage FULL knee extension and flexion 1 time EVERY time you get up and down and MULTIPLE times per day. No showering until 72 hours after surgery. May begin showering postop day #3. Remove the dressing prior to shower and gently wash with warm water and antibacterial soap then pat dry and place abdominal pad (or plain gauze) and ANKIT hose over top. If you decide not to begin showering 72 hrs post operatively and wish to sponge bath only, then you may leave dressing undisturbed for up to 1 week, but must remove prior to first shower. Do not submerge for 3 weeks. If not showering daily after the initial dressing is removed you must clean incision and change dressing daily after the dressing comes off, must come off by 7 days postop. Do not allow animals near the incision area. Keep clean. Follow anti-coagulation recommendations as prescribed. Do not take any NSAIDs while on blood thinner. Do not take any additional narcotic pain medication other than what was prescribed on your surgery day without discussing with physician. Narcotic medication can be addictive. Do not drink alcohol while taking narcotics. Supplement narcotic prescription with acetaminophen 1000 mg 4 times a day. Start physical therapy. If you are not currently scheduled for physical therapy or you are unsure of appointment time please call office [facility] to arrange. Call Dr. Tijerina's office ) with any concerns. Discharge Plan Admission Admit Date/Time: 08/11/25 06:12 Primary Reason for Your Visit: Bilateral total knee arthroplasty Attending Provider: Brandyn Tijerina Primary Care Provider: Ryan Garrido Consulting Providers: Jace Carroll Discharge Orders/Prescriptions Prescriptions: New tamsulosin 0.4 mg capsule 0.8 mg PO DAILY Qty: 7 0RF Rx Instructions: Take with evening meal (5:30 pm) acetaminophen 500 mg capsule 1,000 mg PO Q8H Qty: 60 0RF oxycodone 5 mg tablet 5 mg PO Q4H PRN (Reason: pain) 7 Days Qty: 60 0RF Rx Instructions: Take 1-2 tablets every 4 hrs as needed for moderate to severe pain Eliquis 2.5 mg tablet 2.5 mg PO BID Qty: 42 0RF Continued amlodipine 5 mg tablet 10 mg PO DAILY Patient Comments: TAKE 1 TABLET BY MOUTHVONCE DAILY Other Ambulatory Orders: 12 Lead EKG (Routine) Location: None Selected Ordered By: Dr. Brandyn Tijerina Referrals / Follow Up: Ryan Garrido DO [Primary Care Provider, [facility]] Disposition Disposition (needs filled in before D/C Order can be placed): Home, Self Care
[2025-08-12] MEDS: 0.9% Saline Lock 10 ML Syringe IV ×4 (12:06→20:40)
[2025-08-12 13:55] VITALS: BP 141/79; PULSE 95; RESP 18; TEMP 37.3; O2SAT 95
[2025-08-12] MEDS: HYDROmorphone 0.5 MG/0.5 ML SYRINGE IV (15:37)
[2025-08-12 17:57] VITALS: BP 137/71; PULSE 85; RESP 16; TEMP 36.9; O2SAT 95
[2025-08-12 19:13] VITALS: BP 141/80; PULSE 92; RESP 16; TEMP 36.8; O2SAT 95
[2025-08-12] MEDS: Ketorolac 30 MG/ML Syringe IV (20:40)
[2025-08-12] MEDS: Senna/Docusate Sodium 1 Tablet 2 TABLET PO (21:14)
[2025-08-12] MEDS: MELATONIN 10 MG TABLET PO (22:07)
--- NOTE | 2025-08-12 22:48 | POSTOPAN2_ITS ---
Anesthesia Postop Eval I Sum Postop Eval Completion status Anesthesia document: Postop Eval 1 completed: Yes Anesthesia Postop Eval I Summary Anesthesia Postop Eval I Summary: Anesthesia Postop Eval I: Assessment Summary Airway patent Yes 08/11/25 14:00 DINING ROOM [email or web address] Spontaneous unlabored Yes 08/11/25 14:00 DINING ROOM MANAGER.SHOF respirations Mental status Awake,Calm 08/11/25 14:00 DINING ROOM MANAGER.SHOF nausea No 08/11/25 14:00 DINING ROOM MANAGER.SHOF Vomiting No 08/11/25 14:00 DINING ROOM MANAGER.SHOF Anesthesia Postop Eval I: Fluid Summary Crystalloid volume administer 3,000 08/11/25 14:00 DINING ROOM MANAGER.SHOF (ml) Colloids volume administered ( ml) Blood Product volume administered (ml) Total IV fluid infused 3,000 08/11/25 14:00 DINING ROOM MANAGER.SHOF Anesthesia Postop Eval I: Summary Notes Anesthesia Complication No 08/11/25 14:00 DINING ROOM MANAGER.SHOF Anesthesia Complication Comment: Post-operative progress note Anesthesia: Postop Eval II Evaluation Mental status: Awake and Calm Pain Level: 2 nausea: No Vomiting: No Complications Anesthesia Complication: No
--- NOTE | 2025-08-12 22:48 | PCM.POSTANE2 ---
Anesthesia Postop Eval I Sum Postop Eval Completion status Anesthesia document: Postop Eval 1 completed: Yes Anesthesia Postop Eval I Summary Anesthesia Postop Eval I Summary: Anesthesia Postop Eval I: Assessment Summary Airway patent Yes 08/11/25 14:00 SHIATSU [email or web address] Spontaneous unlabored Yes 08/11/25 14:00 SHIATSU THERAPIST.SHOF respirations Mental status Awake,Calm 08/11/25 14:00 SHIATSU THERAPIST.SHOF nausea No 08/11/25 14:00 SHIATSU THERAPIST.SHOF Vomiting No 08/11/25 14:00 SHIATSU [email or web address].SHOF Anesthesia Postop Eval I: Fluid Summary Crystalloid volume administer 3,000 08/11/25 14:00 SHIATSU THERAPIST.SHOF (ml) Colloids volume administered ( ml) Blood Product volume administered (ml) Total IV fluid infused 3,000 08/11/25 14:00 SHIATSU THERAPIST.SHOF Anesthesia Postop Eval I: Summary Notes Anesthesia Complication No 08/11/25 14:00 SHIATSU [email or web address].SHOF Anesthesia Complication Comment: Post-operative progress note Anesthesia: Postop Eval II Evaluation Mental status: Awake and Calm Pain Level: 2 nausea: No Vomiting: No Complications Anesthesia Complication: No
[2025-08-13 02:00] VITALS: BP 129/69; PULSE 67; RESP 16; TEMP 36.9; O2SAT 97
[2025-08-13] MEDS: Ketorolac 30 MG/ML Syringe IV ×2 (07:50→14:20)
[2025-08-13] MEDS: 0.9% Saline Lock 10 ML Syringe IV ×2 (07:50→14:21)
[2025-08-13] MEDS: APIXABAN 2.5 MG TABLET (WCH) PO (07:51)
[2025-08-13] MEDS: Ensure Surgery 237 ML LIQUID PO ×3 (07:51→16:29)
[2025-08-13 08:49] VITALS: BP 115/72; PULSE 78; RESP 18; TEMP 36.9; O2SAT 95
--- NOTE | 2025-08-13 11:39 | PCM.PN.ORT ---
Subjective Subjective Roberto is a pleasant 60-year-old gentleman postop day 2 of bilateral TKA. Pain is well-controlled with as needed oral oxycodone. Currently taking 2 tablets approximately every 4 hours, has received 2 doses of IV ketorolac with good effect. Patient has been elevating and icing frequently. Has been out of bed and chair multiple times today, worked with PT and OT and including steps. Has been urinating with no difficulties, did require 1 straight cath yesterday. Patient has been started on Flomax and no issues with urination. Patient was up to the bathroom with 1 bowel movement today. Denies fever, chills, nausea, vomiting, shortness of breath or chest pain. Feels ready to d/c home. at bedside. Objective Data Objective Data Vital Signs: Vital Signs Temp Pulse Resp BP Pulse Ox O2 Del Method O2 Flow Rate 98.5 F 78 18 115/72 95 Room Air 2 08/13/25 08:49 08/13/25 08:49 08/13/25 08:49 08/13/25 08:49 08/13/25 08:49 08/13/25 08:50 08/11/25 17:13 Oxygen Flow Rate (L/min) 2 Oxygen Delivery Method Room Air Weight: 271 lb 9.752 oz Body Mass Index (BMI) 36.8 Intake & Output: Intake and Output for Last 24 Hours 08/11/25 08/12/25 08/13/25 23:59 23:59 23:59 Intake Total 4581.42 / 4581.42 1920.00 / 1920.00 Output Total 880 / 1205 3075 / 3075 Balance 3701.42 / 3376.42 -1155.00 / -1155.00 Lab / Micro Data Attestation: I reviewed the patient's lab results. 08/12/25 05:54 08/12/25 05:54 Micro: Microbiology 07/30/25 07:35 Swab (Method) Nasal Screen MRSA/MSSA - Final Radiography Diagnostic Testing: R knee radiology interpretation 08/11/2025: Status post total knee replacement. There is good alignment. Postoperative soft tissue changes. L knee radiology interpretation 08/11/2025: There is a total knee prosthesis in position. Soft tissue air and surgical yesi are noted consistent with recent surgery. Mineralization is normal. Physical Exam Const alert, oriented x3, no apparent distress and well nourished Constitutional Narrative: Patient is ambulating in room upon arrival. Using walker, gait belt in place. Transitions to sitting position well. Awake, A and O x 3. General Appearance: cooperative and well developed HEENT normocephalic Resp normal respiratory effort Extremity Extremity Narrative: Bilateral knee dressings clean, dry, intact with no drainage present. Thigh-high ANKIT hose in place. Right knee region with mild swelling, left knee with moderate swelling. Light ecchymosis bilaterally noted. Lower extremity compartments are soft, nontender. Negative Homans' sign. Distal motor or sensory intact with brisk cap refill at 2 seconds Patient with good strength, able to do seated straight leg lift for short period of time, ROM 10-100 bilaterally. General Extremity: Negative for calf tenderness Skin no rashes or lesions noted Assessment & Plan Assessment/Plan (1) S/P total knee arthroplasty: QUALIFIERS: Laterality: bilateral Qualified Code(s): Z96.653 - Presence of artificial knee joint, bilateral PLAN: D/C today with family Reviewed pain control with routine Tylenol dosing every 8 hours, oxycodone 1 to 2 tablets every 4 hours as needed moderate to severe pain. Eliquis twice daily x 3 weeks Continue once daily dosing of the Flomax x 7 days We discussed well-balanced meals, activity as tolerated with walker, plenty of p.o. fluids. Discussed constipating side effect of pain medications and may need to take OTC Colace or senna combination as needed Reviewed daily antibiotic water lensing of the wound beginning tomorrow, keep wound covered with gauze dressing. Daily and as needed for any redness, drainage, heat from the area, increased pain, streaking, fever or chills. If these present, please contact the office or seek evaluation Wear ANKIT hose during the day Keep legs elevated while seated, frequent icing recommended Range of motion activities hourly while awake Keep PT appointment scheduled for tomorrow Follow-up in Ortho office local in 2 weeks (2) Post-operative pain: (3) Osteoarthritis of knees, bilateral: QUALIFIERS: Osteoarthritis type: primary Qualified Code(s): M17.0 - Bilateral primary osteoarthritis of knee
--- NOTE | 2025-08-13 13:19 | CASEMGMT ---
LEVI BEAVERS NOTE: Discharge order is in. Rx for Eliquis has been e-scribed to [facility]. Call placed to the pharmacy. Co-pay for Eliquis is $20. LEVI BEAVERS to room. Pt sitting up in chair. , Keyla, @ chairside. They were made aware of Eliquis co-pay & that order dc meds are being processed. They would like [id number]. Pharmacy notified. Pt and deny having other discharge needs or concerns. Pt's son will be coming @ 5 PM to help assist getting pt home and up a couple steps into the home. Olena ALMEIDA RN CM
[2025-08-13 15:11] VITALS: BP 137/72; PULSE 81; RESP 18; TEMP 36.9; O2SAT 96
--- NOTE | 2025-08-13 16:27 | PHA.DC_ITS ---
Pharmacy [facility] has performed discharge medication counseling for this patient. The patient was counseled on the following discharge medications and changes in medications for homegoing review. - Acetaminophen 500 mg capsule, Eliquis 2.5 mg tablet, Oxycodone 5 mg tablet, Tamsulosin 0.4 mg capsule The Reason for Use, instructions for use, and potential side effects were reviewed for all new medications. The patient's questions regarding all of their medications were answered. The patient was able to verbally demonstrate an understanding of their discharge medications. Medications at Discharge Home Medications amlodipine 5 mg tablet 10 mg PO DAILY HTN 05/04/23 acetaminophen 500 mg capsule 1,000 mg (2 x 500 mg) PO Q8H #60 caps 08/13/25 apixaban 2.5 mg tablet (Eliquis) 2.5 mg PO BID #42 tabs 08/13/25 oxycodone 5 mg tablet 5 mg PO Q4H PRN pain 7 days #60 tabs 08/13/25 tamsulosin 0.4 mg capsule 0.8 mg (2 x 0.4 mg) PO DAILY #7 caps 08/13/25
--- NOTE | 2025-08-14 11:56 | PCM.DC.SUM ---
Providers Date of Admission: 08/11/25 Primary Care Physician: Dr. Ryan Garrido DO Reason For Visit: ERAS, Bilateral Total Knee Replacement Robotic Arm Diagnosis Discharge Diagnosis (1) S/P total knee arthroplasty: Status: Acute Code(s): Z96.659 - Presence of unspecified artificial knee joint Qualifiers: Laterality: bilateral Qualified Code(s): Z96.653 - Presence of artificial knee joint, bilateral (2) Post-operative pain: Status: Acute Code(s): G89.18 - Other acute postprocedural pain (3) Osteoarthritis of knees, bilateral: Status: Acute Code(s): M17.0 - Bilateral primary osteoarthritis of knee Qualifiers: Osteoarthritis type: primary Qualified Code(s): M17.0 - Bilateral primary osteoarthritis of knee Plan Postop day #1 bilateral total knee arthroplasty PT OT weightbearing as tolerated encourage full knee range of motion DVT prophylaxis SCDs ANKIT hose Eliquis 2.5 mg twice daily for 3 weeks postop Will add Flomax for urinary retention. Continue current care plan for DC home tomorrow if well. Medications at Discharge Home Medications amlodipine 5 mg tablet 10 mg PO DAILY HTN 05/04/23 acetaminophen 500 mg capsule 1,000 mg (2 x 500 mg) PO Q8H #60 caps 08/13/25 apixaban 2.5 mg tablet (Eliquis) 2.5 mg PO BID #42 tabs 08/13/25 oxycodone 5 mg tablet 5 mg PO Q4H PRN pain 7 days #60 tabs 08/13/25 tamsulosin 0.4 mg capsule 0.8 mg (2 x 0.4 mg) PO DAILY #7 caps 08/13/25 Hospital Course Operations total knee replacement (Bilateral) Summary of Care Provided Hospital Course: Who has long history of degenerative joint disease of both knees who has failed conservative treatment and wished to undergo elective bilateral total knee arthroplasty. Patient underwent the aformentioned procedure on the admission date without any intraoperative complications. Patient did receive pre-and postoperative antibiotics which were discontinued within 23 hours postoperatively. Patient did receive general anesthesia adductor canal blocks postoperatively. pain was controlled with IV and transition to p.o. pain medication Patient will be discharged home with oxycodone and will continue Tylenol as well. Patient had appropriate intraoperative blood loss and 2gm tranexamic acid was administered there was no need for postoperative blood transfusion Patients vital signs remained stable. Patient was started on both mechanical and chemical DVT per prophylaxis postoperatively in the form of SCDs ANKIT hose and [Eliquis 2.5 mg twice daily for which she will continue for 3 additional weeks post hospital discharge]. thigh high ankit hose placed over top of the meplix silver dressing. This should be removed 72 hrs post operatively and showering begun daily at that time with warm water and antibacterial soap. not to submerge for 3 weeks. To change dressing daily after first dressing change. Patient will follow-up in the office in 2 weeks. No intrahospital complications. Weight / BMI Weight Weight: 271 lb 9.752 oz Body Mass Index (BMI) 36.8 ABG / Lab / Microbiology Data 08/12/25 05:54 08/12/25 05:54 Microbiology: Microbiology 07/30/25 07:35 Swab (Method) Nasal Screen MRSA/MSSA - Final D/C Instructions May shower in (days): 1 Weight Bearing Status: Weight bearing as tolerated Additional Activity Instructions: Frequently elevate bilateral legs Call your doctor if your incision/area has: Increased Pain/ Swelling, Increased Redness and Swelling at the incision site Call your doctor if you observe: Fever of 101 or Higher, Shortness of breath and Chest pain Cleanse incision/area with: Soap & Water and Keep Dressing Clean & Dry Additional Dressing/Incision Instructions: Ice and elevate lower extremities 2 weeks while not ambulating. Ambulation is encouraged. Weight bearing as tolerated. Use assistive devise for stability. Encourage FULL knee extension and flexion 1 time EVERY time you get up and down and MULTIPLE times per day. No showering until 72 hours after surgery. May begin showering postop day #3. Remove the dressing prior to shower and gently wash with warm water and antibacterial soap then pat dry and place abdominal pad (or plain gauze) and ANKIT hose over top. If you decide not to begin showering 72 hrs post operatively and wish to sponge bath only, then you may leave dressing undisturbed for up to 1 week, but must remove prior to first shower. Do not submerge for 3 weeks. If not showering daily after the initial dressing is removed you must clean incision and change dressing daily after the dressing comes off, must come off by 7 days postop. Do not allow animals near the incision area. Keep clean. Follow anti-coagulation recommendations as prescribed. Do not take any NSAIDs while on blood thinner. Do not take any additional narcotic pain medication other than what was prescribed on your surgery day without discussing with physician. Narcotic medication can be addictive. Do not drink alcohol while taking narcotics. Supplement narcotic prescription with acetaminophen 1000 mg 4 times a day. Start physical therapy. If you are not currently scheduled for physical therapy or you are unsure of appointment time please call office [facility] to arrange. Call Dr. Tijerina's office ) with any concerns. DC O2, CPAP, BIPAP Needs Home O2 Discharge instructions: No Please Follow Up With: Brandyn Tijerina DO When: 2 weeks Meaningful Use Info Meaningful Use Meaningful Use Diagnoses (Choose all that apply): None applicable Discharge Plan Admission Admit Date/Time: 08/11/25 06:12 Primary Reason for Your Visit: Bilateral total knee arthroplasty Attending Provider: Brandyn Tijerina Primary Care Provider: Ryan Garrido Consulting Providers: Jace Carroll Discharge Orders/Prescriptions Prescriptions: New tamsulosin 0.4 mg capsule 0.8 mg PO DAILY Qty: 7 0RF Rx Instructions: Take with evening meal (5:30 pm) acetaminophen 500 mg capsule 1,000 mg PO Q8H Qty: 60 0RF oxycodone 5 mg tablet 5 mg PO Q4H PRN (Reason: pain) 7 Days Qty: 60 0RF Rx Instructions: Take 1-2 tablets every 4 hrs as needed for moderate to severe pain Eliquis 2.5 mg tablet 2.5 mg PO BID Qty: 42 0RF Continued amlodipine 5 mg tablet 10 mg PO DAILY Patient Comments: TAKE 1 TABLET BY MOUTHVONCE DAILY Other Ambulatory Orders: 12 Lead EKG (Routine) Location: None Selected Ordered By: Dr. Brandyn Tijerina Referrals / Follow Up: Ryan Garrido DO [Primary Care Provider, Family Practice] Disposition Disposition (needs filled in before D/C Order can be placed): Home, Self Care
== END 2025-08-13 17:07 | disposition home or self-care (01) | DRG 462 ==
LOC: ACINP 06:13 → MS3 14:44
PROVIDERS: Anesthesiology; Admitting Provider Orthopaedic Surgery; PCP Family Medicine; Referring Provider Orthopaedic Surgery; Visit Provider Orthopaedic Surgery
PROC: 0SRC0JA Replacement of Right Knee Joint with Synthetic Substitute, Uncemented, Open Approach (ICD-10-PCS; principal; 2025-08-11 07:50)
DX: M17.0 Bilateral primary osteoarthritis of knee (principal); M24.561 Contracture, right knee; E66.9 Obesity, unspecified; I10 Essential (primary) hypertension; M21.161 Varus deformity, not elsewhere classified, right knee; M21.162 Varus deformity, not elsewhere classified, left knee; M24.562 Contracture, left knee; Z68.36 Body mass index [BMI] 36.0-36.9, adult; R33.9 Retention of urine, unspecified; Z79.899 Other long term (current) drug therapy
CPT/HCPCS: 36415; 73560; 80048; 82962; 82985; 83036; 83735; 85025; 85027; 85610; 85730; 86850; 86900; 86901; 87081; 88304; 88305; 88311; 93005; 94668; 97110; 97162; 97166; 97530; 97535; C1776; A4216; J2405; J3475